=== PATIENT | male | born 1945 | race Caucasian/White ===

== ENCOUNTER → 2016-06-22 | Outpatient (REF) | payer OTHER ==
[~2016-06-22] MED LIST: /GLIM2TA OR; /TAMS4CA OR; /TAMS4CA PO; /WARF25TA OR; /WARF5TA OR; ALLO100T OR; AMAR1TAB OR; ATEN100T OR; CIPRO PO; DIGO0.126 OR; FLUOCINOLONE TOP; FURO20TA2 OR; GLUC1000 OR; LASI40TA OR; LISI10TA4 OR; METF1000 PO; METF750T OR; PERC7.5T12 PO; SENN8.6T7 PO; SLOWTAB OR; VERA240T11 OR; VITA100T OR; VITA50TA12 OR; WARF1TAB OR; WARFPOW3 PO; WARFPOW3 XX; ZOCO40TA OR; drisdol OR
[2016-06-22 16:17] LABS: ALBUMIN 3.5 GM/DL (3.2-5.2); ALBUMIN/GLOBULIN RATIO 0.9 (1.00-1.93); BILIRUBIN,TOTAL 0.3 MG/DL (0.2-1.0); CALCIUM LEVEL 8.8 MG/DL (8.8-10.2); CREATININE FOR GFR 2.3 MG/DL (0.70-1.30); GLOMERULAR FILTRATION RATE 29.8 (>42); POTASSIUM SERUM 4.1 MEQ/L (3.5-5.1); TOTAL PROTEIN 7.4 GM/DL (6.4-8.2)
== END ==
LOC: M SFHCPLAZ 13:09
PROVIDERS: ATTEND Nurse Practitioner Family
DX: E11.65 Type 2 diabetes mellitus with hyperglycemia (principal)

== ENCOUNTER → 2016-07-04 | Outpatient (REF) | payer OTHER ==
[2016-07-04 15:49] LABS: ALBUMIN 3.1 GM/DL (3.2-5.2); ALBUMIN/GLOBULIN RATIO 0.89 (1.00-1.93); BILIRUBIN,TOTAL 0.3 MG/DL (0.2-1.0); CALCIUM LEVEL 7.8 MG/DL (8.8-10.2); CREATININE FOR GFR 1.47 MG/DL (0.70-1.30); POTASSIUM SERUM 4.5 MEQ/L (3.5-5.1); TOTAL PROTEIN 6.6 GM/DL (6.4-8.2)
== END ==
LOC: M SFHCPLAZ 13:28
PROVIDERS: ATTEND Nurse Practitioner Family
DX: N17.9 Acute kidney failure, unspecified (principal)

== ENCOUNTER → 2016-07-16 | Outpatient (REF) | payer OTHER ==
[2016-07-16 16:32] LABS: INR 2.03
== END ==
LOC: M SFHCPLAZ 16:10
PROVIDERS: ATTEND Nurse Practitioner Family
DX: I48.91 Unspecified atrial fibrillation (principal); Z51.81 Encounter for therapeutic drug level monitoring; Z79.01 Long term (current) use of anticoagulants

== ENCOUNTER → 2016-07-16 | Outpatient (REF) | payer OTHER ==
[2016-07-16 16:35] LABS: CALCIUM LEVEL 8.1 MG/DL (8.8-10.2); CREATININE FOR GFR 1.55 MG/DL (0.70-1.30); MAGNESIUM LEVEL 2.1 MG/DL (1.8-2.4); PHOSPHORUS LEVEL 3.1 MG/DL (2.5-4.9); POTASSIUM SERUM 4.3 MEQ/L (3.5-5.1)
== END ==
LOC: M LABDRAWP 15:43
PROVIDERS: ATTEND Physician Assistant
DX: I50.32 Chronic diastolic (congestive) heart failure (principal); I48.3 Typical atrial flutter; Z51.81 Encounter for therapeutic drug level monitoring; Z79.01 Long term (current) use of anticoagulants

== ENCOUNTER → 2016-09-20 | Outpatient (REF) | payer OTHER ==
[2016-09-20 16:52] LABS: ALBUMIN 3.2 GM/DL (3.2-5.2); ALBUMIN/GLOBULIN RATIO 0.86 (1.00-1.93); BILIRUBIN,TOTAL 0.2 MG/DL (0.2-1.0); CALCIUM LEVEL 8.4 MG/DL (8.8-10.2); CREATININE FOR GFR 1.6 MG/DL (0.70-1.30); GLOMERULAR FILTRATION RATE 45.3 (>42); POTASSIUM SERUM 4.9 MEQ/L (3.5-5.1); TOTAL PROTEIN 6.9 GM/DL (6.4-8.2)
== END ==
LOC: M LABDRAW1 12:57
PROVIDERS: ATTEND Nurse Practitioner Family
DX: E11.21 Type 2 diabetes mellitus with diabetic nephropathy (principal); N17.9 Acute kidney failure, unspecified

== ENCOUNTER → 2016-10-25 | Outpatient (REF) | payer OTHER ==
[2016-10-25 16:08] LABS: ALBUMIN 3.2 GM/DL (3.2-5.2); CALCIUM LEVEL 8.3 MG/DL (8.8-10.2); CREATININE FOR GFR 1.41 MG/DL (0.70-1.30); GLOMERULAR FILTRATION RATE 52.5 (>42); MAGNESIUM LEVEL 2.1 MG/DL (1.8-2.4); PHOSPHORUS LEVEL 2.7 MG/DL (2.5-4.9); POTASSIUM SERUM 4.3 MEQ/L (3.5-5.1)
== END ==
LOC: M LABDRAWP 15:29
PROVIDERS: ATTEND Physician Assistant
DX: I50.32 Chronic diastolic (congestive) heart failure (principal); I48.3 Typical atrial flutter

== ENCOUNTER → 2016-10-25 | Outpatient (REF) | payer OTHER ==
[2016-10-25 16:05] LABS: INR 2.33
== END ==
LOC: M LABDRAWP 15:31
PROVIDERS: ATTEND Nurse Practitioner Family
DX: Z51.81 Encounter for therapeutic drug level monitoring (principal); Z79.01 Long term (current) use of anticoagulants; I48.3 Typical atrial flutter; I50.32 Chronic diastolic (congestive) heart failure

== ENCOUNTER → 2016-12-21 | Outpatient (REF) | payer OTHER ==
[2016-12-21 16:50] LABS: ALBUMIN 3.1 GM/DL (3.2-5.2); ALBUMIN/GLOBULIN RATIO 0.86 (1.00-1.93); BILIRUBIN,TOTAL 0.3 MG/DL (0.2-1.0); CALCIUM LEVEL 8.2 MG/DL (8.8-10.2); CREATININE FOR GFR 1.48 MG/DL (0.70-1.30); GLOMERULAR FILTRATION RATE 49.6 (>42); POTASSIUM SERUM 4.4 MEQ/L (3.5-5.1); TOTAL PROTEIN 6.7 GM/DL (6.4-8.2)
== END ==
LOC: M SFHCPLAZ 14:23
PROVIDERS: ATTEND Nurse Practitioner Family
DX: E11.65 Type 2 diabetes mellitus with hyperglycemia (principal)

== ENCOUNTER → 2017-01-28 | Outpatient (CLI) | payer OTHER ==
[2017-01-28 18:31] LABS: ALBUMIN 3.2 GM/DL (3.2-5.2); CALCIUM LEVEL 7.9 MG/DL (8.8-10.2); CREATININE FOR GFR 1.54 MG/DL (0.70-1.30); GLOMERULAR FILTRATION RATE 47.4 (>42); MAGNESIUM LEVEL 2.3 MG/DL (1.8-2.4); PHOSPHORUS LEVEL 3.3 MG/DL (2.5-4.9); POTASSIUM SERUM 4.3 MEQ/L (3.5-5.1)
== END ==
LOC: M WUC 13:38
PROVIDERS: ATTEND Physician Assistant
DX: I50.32 Chronic diastolic (congestive) heart failure (principal)

== ENCOUNTER → 2017-02-08 | Outpatient (REF) | payer OTHER ==
[2017-02-08 13:36] LABS: INR 2.7
[2017-02-08 13:49] LABS: ALBUMIN 3.3 GM/DL (3.2-5.2); ALBUMIN/GLOBULIN RATIO 0.89 (1.00-1.93); BILIRUBIN,TOTAL 0.5 MG/DL (0.2-1.0); CALCIUM LEVEL 8.1 MG/DL (8.8-10.2); CREATININE FOR GFR 1.39 MG/DL (0.70-1.30); GLOMERULAR FILTRATION RATE 53.2 (>42); POTASSIUM SERUM 4.1 MEQ/L (3.5-5.1)
[2017-02-08 14:00] LABS: DIGOXIN LEVEL 0.4 NG/ML (0.5-2.0)
== END ==
LOC: M SFHCPLAZ 09:34
PROVIDERS: ATTEND Nurse Practitioner Family
DX: I48.0 Paroxysmal atrial fibrillation (principal); E78.2 Mixed hyperlipidemia; Z51.81 Encounter for therapeutic drug level monitoring; Z79.01 Long term (current) use of anticoagulants; R73.01 Impaired fasting glucose

== ENCOUNTER → 2017-04-25 | Outpatient (REF) | payer OTHER ==
[2017-04-25 16:48] LABS: ALBUMIN 3.3 GM/DL (3.2-5.2); ALBUMIN/GLOBULIN RATIO 0.87 (1.00-1.93); BILIRUBIN,TOTAL 0.4 MG/DL (0.2-1.0); CALCIUM LEVEL 7.9 MG/DL (8.8-10.2); CREATININE FOR GFR 1.65 MG/DL (0.70-1.30); GLOMERULAR FILTRATION RATE 43.6 (>42); POTASSIUM SERUM 4.4 MEQ/L (3.5-5.1); TOTAL PROTEIN 7.1 GM/DL (6.4-8.2)
== END ==
LOC: M SFHCPLAZ 12:52
PROVIDERS: ATTEND Nurse Practitioner Family
DX: E11.21 Type 2 diabetes mellitus with diabetic nephropathy (principal)

== ENCOUNTER → 2017-05-17 | Outpatient (CLI) | payer OTHER ==
[2017-05-17 18:33] LABS: ALBUMIN 3.3 GM/DL (3.2-5.2); ANION GAP 7 MEQ/L (8-16); BLOOD UREA NITROGEN 44 MG/DL (7-18); CALCIUM LEVEL 8.4 MG/DL (8.8-10.2); CARBON DIOXIDE LEVEL 32 MEQ/L (21-32); CHLORIDE LEVEL 102 MEQ/L (98-107); CREATININE FOR GFR 1.49 MG/DL (0.70-1.30); GLOMERULAR FILTRATION RATE 49.1 (>42); GLUCOSE, FASTING 286 MG/DL (83-110); MAGNESIUM LEVEL 2.3 MG/DL (1.8-2.4); PHOSPHORUS LEVEL 3.9 MG/DL (2.5-4.9); POTASSIUM SERUM 4.6 MEQ/L (3.5-5.1); SODIUM LEVEL 141 MEQ/L (136-145)
== END ==
LOC: M WUC 14:41
DX: I48.1 Persistent atrial fibrillation (principal); I50.32 Chronic diastolic (congestive) heart failure
CPT/HCPCS: 83735

== ENCOUNTER → 2017-05-30 | Outpatient (REF) | payer OTHER ==
[2017-05-30 16:22] LABS: ANION GAP 6 MEQ/L (8-16); BLOOD UREA NITROGEN 43 MG/DL (7-18); CALCIUM LEVEL 8.2 MG/DL (8.8-10.2); CARBON DIOXIDE LEVEL 31 MEQ/L (21-32); CHLORIDE LEVEL 100 MEQ/L (98-107); CREATININE FOR GFR 1.55 MG/DL (0.70-1.30); GLOMERULAR FILTRATION RATE 46.9 (>42); GLUCOSE, FASTING 361 MG/DL (83-110); POTASSIUM SERUM 4.7 MEQ/L (3.5-5.1); SODIUM LEVEL 137 MEQ/L (136-145)
== END ==
LOC: M SFHCPLAZ 14:02
DX: I10 Essential (primary) hypertension (principal); Z79.01 Long term (current) use of anticoagulants; Z51.81 Encounter for therapeutic drug level monitoring
CPT/HCPCS: 80048

== ENCOUNTER → 2017-08-19 | Outpatient (REF) | payer OTHER ==
[2017-08-19 18:50] LABS: ALKALINE PHOSPHATASE 74 U/L (45-117); ALT/SGPT 37 U/L (12-78); ANION GAP 6 MEQ/L (8-16); AST/SGOT 22 U/L (7-37); BILIRUBIN,TOTAL 0.3 MG/DL (0.2-1.0); BLOOD UREA NITROGEN 41 MG/DL (7-18); CALCIUM LEVEL 8.2 MG/DL (8.8-10.2); CARBON DIOXIDE LEVEL 29 MEQ/L (21-32); CHLORIDE LEVEL 105 MEQ/L (98-107); CHOLESTEROL LEVEL 153 MG/DL (<200); CREATININE FOR GFR 1.52 MG/DL (0.70-1.30); GLUCOSE, FASTING 147 MG/DL (70-100); HDL CHOLESTEROL 36 MG/DL (>40); POTASSIUM SERUM 4.2 MEQ/L (3.5-5.1); SODIUM LEVEL 140 MEQ/L (136-145); TRIGLYCERIDES LEVEL 247 MG/DL (<150)
[2017-08-19 18:51] LABS: ALBUMIN 3.4 GM/DL (3.2-5.2); ALBUMIN/GLOBULIN RATIO 0.89 (1.00-1.93); LDL CHOLESTEROL 67.6 MG/DL (<100); NON-HDL-C 117 MG/DL; TOTAL PROTEIN 7.2 GM/DL (6.4-8.2)
[2017-08-19 22:51] LABS: ESTIMATED AVERAGE GLUCOSE 206 MG/DL (60-110); HEMOGLOBIN A1c 8.8 %
== END ==
LOC: M SFHCPLAZ 15:33
DX: E11.65 Type 2 diabetes mellitus with hyperglycemia (principal); E78.2 Mixed hyperlipidemia; I10 Essential (primary) hypertension
CPT/HCPCS: 80053

== ENCOUNTER → 2017-08-28 | Outpatient (CLI) | payer OTHER ==
[2017-08-28 17:04] LABS: ALBUMIN 3.2 GM/DL (3.2-5.2); ANION GAP 6 MEQ/L (8-16); BLOOD UREA NITROGEN 44 MG/DL (7-18); CALCIUM LEVEL 8.2 MG/DL (8.8-10.2); CARBON DIOXIDE LEVEL 30 MEQ/L (21-32); CHLORIDE LEVEL 105 MEQ/L (98-107); GLOMERULAR FILTRATION RATE 45.2 (>42); GLUCOSE, FASTING 203 MG/DL (70-100); MAGNESIUM LEVEL 2.4 MG/DL (1.8-2.4); PHOSPHORUS LEVEL 2.9 MG/DL (2.5-4.9); POTASSIUM SERUM 4.3 MEQ/L (3.5-5.1); SODIUM LEVEL 141 MEQ/L (136-145)
== END ==
LOC: M WUC 14:38
DX: I50.32 Chronic diastolic (congestive) heart failure (principal); I48.3 Typical atrial flutter
CPT/HCPCS: 83735

== ENCOUNTER 2017-10-16 16:21 | Emergency (ER) | payer OTHER | END 2017-10-16 19:23 | disposition home or self-care (01) | LOC: M ED 16:21 | DX: M17.11 Unilateral primary osteoarthritis, right knee (principal); M25.561 Pain in right knee; R60.0 Localized edema; I50.9 Heart failure, unspecified; E11.9 Type 2 diabetes mellitus without complications; I10 Essential (primary) hypertension; Z79.4 Long term (current) use of insulin; Z79.01 Long term (current) use of anticoagulants; Z79.899 Other long term (current) drug therapy | CPT/HCPCS: 73564 ==

== ENCOUNTER 2017-10-17 10:15 | Emergency (ER) | payer OTHER | END 2017-10-17 11:31 | disposition home or self-care (01) | LOC: M ED 10:15 | DX: S60.221A Contusion of right hand, initial encounter (principal); S63.501A Unspecified sprain of right wrist, initial encounter; W19.XXXA Unspecified fall, initial encounter; Y92.098 Other place in other non-institutional residence as the place of occurrence of the external cause; I11.0 Hypertensive heart disease with heart failure; I50.9 Heart failure, unspecified; E78.00 Pure hypercholesterolemia, unspecified; G47.30 Sleep apnea, unspecified; N28.89 Other specified disorders of kidney and ureter; Z85.46 Personal history of malignant neoplasm of prostate; M19.90 Unspecified osteoarthritis, unspecified site; E11.9 Type 2 diabetes mellitus without complications; Z79.899 Other long term (current) drug therapy; Z79.4 Long term (current) use of insulin; Z79.01 Long term (current) use of anticoagulants | CPT/HCPCS: 73110 ==

== ENCOUNTER → 2017-11-19 | Outpatient (REF) | payer OTHER ==
[2017-11-19 16:18] LABS: ALBUMIN 3.4 GM/DL (3.2-5.2); ALBUMIN/GLOBULIN RATIO 0.92 (1.00-1.93); ALKALINE PHOSPHATASE 84 U/L (45-117); ALT/SGPT 29 U/L (12-78); ANION GAP 5 MEQ/L (8-16); AST/SGOT 22 U/L (7-37); BILIRUBIN,TOTAL 0.4 MG/DL (0.2-1.0); BLOOD UREA NITROGEN 43 MG/DL (7-18); CALCIUM LEVEL 8.2 MG/DL (8.8-10.2); CARBON DIOXIDE LEVEL 32 MEQ/L (21-32); CHLORIDE LEVEL 101 MEQ/L (98-107); CREATININE FOR GFR 1.56 MG/DL (0.70-1.30); GLOMERULAR FILTRATION RATE 46.5 (>42); GLUCOSE, FASTING 232 MG/DL (70-100); POTASSIUM SERUM 4.4 MEQ/L (3.5-5.1); SODIUM LEVEL 138 MEQ/L (136-145); TOTAL PROTEIN 7.1 GM/DL (6.4-8.2)
[2017-11-19 16:23] LABS: ESTIMATED AVERAGE GLUCOSE 209 MG/DL (60-110); HEMOGLOBIN A1c 8.9 %
== END ==
LOC: M LABDRAW1 15:56
DX: E11.21 Type 2 diabetes mellitus with diabetic nephropathy (principal)
CPT/HCPCS: 80053

== ENCOUNTER → 2017-11-26 | Outpatient (REF) | payer OTHER ==
[2017-11-26 16:06] LABS: ANION GAP 6 MEQ/L (8-16); BLOOD UREA NITROGEN 36 MG/DL (7-18); CARBON DIOXIDE LEVEL 30 MEQ/L (21-32); CHLORIDE LEVEL 104 MEQ/L (98-107); CREATININE FOR GFR 1.49 MG/DL (0.70-1.30); GLOMERULAR FILTRATION RATE 49.1 (>42); GLUCOSE, FASTING 177 MG/DL (70-100); MAGNESIUM LEVEL 2.2 MG/DL (1.8-2.4); PHOSPHORUS LEVEL 2.9 MG/DL (2.5-4.9); POTASSIUM SERUM 4.5 MEQ/L (3.5-5.1); SODIUM LEVEL 140 MEQ/L (136-145)
== END ==
LOC: M LABDRAW1 15:22
DX: I48.3 Typical atrial flutter (principal); I50.32 Chronic diastolic (congestive) heart failure
CPT/HCPCS: 83735

== ENCOUNTER → 2017-12-27 | Outpatient (REF) | payer OTHER ==
[2017-12-27 16:12] LABS: ANION GAP 7 MEQ/L (8-16); BLOOD UREA NITROGEN 47 MG/DL (7-18); CALCIUM LEVEL 8.2 MG/DL (8.8-10.2); CARBON DIOXIDE LEVEL 30 MEQ/L (21-32); CHLORIDE LEVEL 104 MEQ/L (98-107); CREATININE FOR GFR 1.56 MG/DL (0.70-1.30); GLOMERULAR FILTRATION RATE 46.5 (>42); GLUCOSE, FASTING 178 MG/DL (70-100); POTASSIUM SERUM 4.7 MEQ/L (3.5-5.1); SODIUM LEVEL 141 MEQ/L (136-145)
== END ==
LOC: M SFHCPLAZ 14:24
DX: N18.3 Chronic kidney disease, stage 3 (moderate) (principal)
CPT/HCPCS: 80048

== ENCOUNTER 2018-01-21 05:39 | Day surgery (SDC) | payer OTHER ==
[~2018-01-21 05:39] MED LIST changes: -/GLIM2TA OR; -/TAMS4CA OR; -/TAMS4CA PO; -/WARF25TA OR; -/WARF5TA OR; -ALLO100T OR; -AMAR1TAB OR; -ATEN100T OR; -CIPRO PO; -DIGO0.126 OR; -FLUOCINOLONE TOP; -FURO20TA2 OR; -GLUC1000 OR; -LASI40TA OR; -LISI10TA4 OR; +LR 1,000 ML IV; -METF1000 PO; -METF750T OR; -PERC7.5T12 PO; -SENN8.6T7 PO; -SLOWTAB OR; -VERA240T11 OR; -VITA100T OR; -VITA50TA12 OR; -WARF1TAB OR; -WARFPOW3 PO; -WARFPOW3 XX; -ZOCO40TA OR; +ceFAZolin SOD 1 GM in D5W MINI-BAG PLUS 50 ML IV; -drisdol OR
[2018-01-21] MEDS ORDERED: ceFAZolin SOD 1 GM in D5W MINI-BAG PLUS 50 ML IV (06:00)
[2018-01-21] MEDS: LR 1,000 ML IV (06:20)
[2018-01-21 06:33] LABS: BEDSIDE GLUCOSE 129 MG/DL (83-110)
[2018-01-21 06:40] LABS: INR 3.07; PROTHROMBIN TIME 32.4 SECONDS (12.1-14.4)
[2018-01-21] MEDS ORDERED: fentaNYL 100 MCG/2 ML INJECTION (J3010) As Ordered (07:25)
[2018-01-21] MEDS ORDERED: ETOMIDATE INJ 20MG/10ML VIAL As Ordered (07:25)
[2018-01-21] MEDS ORDERED: ROCURONIUM BROMIDE 50 MG/5 ML VIAL As Ordered (07:25)
[2018-01-21] MEDS ORDERED: LIDOCAINE 2% INJ 100 MG/5 ML SDV (FOR ANES.) As Ordered (07:25)
[2018-01-21] MEDS ORDERED: PROPOFOL 200 MG/20 ML VIAL As Ordered (07:25)
[2018-01-21] MEDS ORDERED: SUCCINYLCHOLINE 100 MG/5 ML SYRINGE (J0330) As Ordered ×2 (07:25)
[2018-01-21] MEDS ORDERED: ONDANSETRON 4MG/2ML VIAL (J2405) As Ordered (07:25)
[2018-01-21] MEDS ORDERED: dexameTHASONE 4 MG/ML 1ML VIAL (J1100) As Ordered (07:25)
[2018-01-21] MEDS ORDERED: MIDAZOLAM INJ 2 MG/2 ML VIAL (J2250) As Ordered (07:25)
[2018-01-21] MEDS ORDERED: GLYCOPYRROLATE INJ 0.2 MG/ML 2 ML VIAL As Ordered (08:08)
[2018-01-21] MEDS ORDERED: ePHEDrine SULFATE 25 MG/5 ML(5MG/ML) SYRINGE As Ordered (08:09)
[2018-01-21] MEDS: ROPIvacaine 0.5% 30 ML INJECTION (J2795 PER 1MG) As Ordered (08:18)
[2018-01-21] MEDS: TRIAMCINOLONE ACETONIDE SUSP 40 MG/ML VIAL (J3301) As Ordered (08:19)
[2018-01-21] MEDS ORDERED: ONDANSETRON 4MG/2ML VIAL (J2405) IV (08:45)
[2018-01-21] MEDS ORDERED: LR 1,000 ML IV ×2 (08:45)
[2018-01-21] MEDS ORDERED: METOCLOPRAMIDE INJ 10MG/2ML VIAL (J2765) IV (08:45)
[2018-01-21] MEDS ORDERED: NORCO, ANEXSIA 5/325MG TABLET (HYDROcodone/ACETAMINOPHEN) PO (08:45)
[2018-01-21] MEDS ORDERED: PERCOCET 5MG/325MG TAB PO (08:45)
[2018-01-21] MEDS ORDERED: fentaNYL 100 MCG/2 ML INJECTION (J3010) IV (08:45)
[2018-01-21 08:54] LABS: BEDSIDE GLUCOSE 139 MG/DL (83-110)
== END 2018-01-21 11:20 | disposition home or self-care (01) ==
LOC: M SDC 05:39
DX: M17.11 Unilateral primary osteoarthritis, right knee (principal); M23.221 Derangement of posterior horn of medial meniscus due to old tear or injury, right knee; M23.261 Derangement of other lateral meniscus due to old tear or injury, right knee; I13.0 Hypertensive heart and chronic kidney disease with heart failure and stage 1 through stage 4 chronic kidney disease, or unspecified chronic kidney disease; E11.21 Type 2 diabetes mellitus with diabetic nephropathy; E11.22 Type 2 diabetes mellitus with diabetic chronic kidney disease; I48.0 Paroxysmal atrial fibrillation; I35.0 Nonrheumatic aortic (valve) stenosis; I50.32 Chronic diastolic (congestive) heart failure; E78.2 Mixed hyperlipidemia; R06.83 Snoring; N18.3 Chronic kidney disease, stage 3 (moderate); E83.40 Disorders of magnesium metabolism, unspecified; E55.9 Vitamin D deficiency, unspecified; D51.9 Vitamin B12 deficiency anemia, unspecified; G47.33 Obstructive sleep apnea (adult) (pediatric); N40.0 Benign prostatic hyperplasia without lower urinary tract symptoms; C61 Malignant neoplasm of prostate; M10.9 Gout, unspecified; E66.01 Morbid (severe) obesity due to excess calories; Z68.43 Body mass index [BMI] 50.0-59.9, adult; Z79.899 Other long term (current) drug therapy; Z79.01 Long term (current) use of anticoagulants; Z79.4 Long term (current) use of insulin; Z86.69 Personal history of other diseases of the nervous system and sense organs
CPT/HCPCS: 29880

== ENCOUNTER → 2018-02-21 | Outpatient (REF) | payer OTHER ==
[2018-02-21 17:52] LABS: ESTIMATED AVERAGE GLUCOSE 209 MG/DL (60-110); HEMOGLOBIN A1c 8.9 %
[2018-02-21 17:56] LABS: ALBUMIN 3.4 GM/DL (3.2-5.2); ALBUMIN/GLOBULIN RATIO 0.94 (1.00-1.93); ALKALINE PHOSPHATASE 71 U/L (45-117); ALT/SGPT 37 U/L (12-78); ANION GAP 7 MEQ/L (8-16); AST/SGOT 26 U/L (7-37); BILIRUBIN,TOTAL 0.3 MG/DL (0.2-1.0); BLOOD UREA NITROGEN 44 MG/DL (7-18); CALCIUM LEVEL 8.8 MG/DL (8.8-10.2); CARBON DIOXIDE LEVEL 31 MEQ/L (21-32); CHLORIDE LEVEL 104 MEQ/L (98-107); CREATININE FOR GFR 1.65 MG/DL (0.70-1.30); GLOMERULAR FILTRATION RATE 43.5 (>42); GLUCOSE, FASTING 155 MG/DL (70-100); POTASSIUM SERUM 4.5 MEQ/L (3.5-5.1); SODIUM LEVEL 142 MEQ/L (136-145)
== END ==
LOC: M SFHCPLAZ 15:55
DX: E11.21 Type 2 diabetes mellitus with diabetic nephropathy (principal)
CPT/HCPCS: 80053

== ENCOUNTER → 2018-03-03 | Outpatient (REF) | payer OTHER ==
[2018-03-03 19:11] LABS: ANION GAP 8 MEQ/L (8-16); BLOOD UREA NITROGEN 54 MG/DL (7-18); CALCIUM LEVEL 8.5 MG/DL (8.8-10.2); CARBON DIOXIDE LEVEL 30 MEQ/L (21-32); CHLORIDE LEVEL 102 MEQ/L (98-107); CREATININE FOR GFR 1.83 MG/DL (0.70-1.30); GLOMERULAR FILTRATION RATE 38.6 (>42); GLUCOSE, FASTING 173 MG/DL (70-100); POTASSIUM SERUM 4.9 MEQ/L (3.5-5.1); SODIUM LEVEL 140 MEQ/L (136-145)
== END ==
LOC: M LABDRAW1 17:00
DX: I50.32 Chronic diastolic (congestive) heart failure (principal)
CPT/HCPCS: 80048

== ENCOUNTER → 2018-03-20 | Outpatient (CLI) | payer OTHER ==
[2018-03-20 17:25] LABS: ANION GAP 8 MEQ/L (8-16); BLOOD UREA NITROGEN 48 MG/DL (7-18); CALCIUM LEVEL 8.6 MG/DL (8.8-10.2); CARBON DIOXIDE LEVEL 31 MEQ/L (21-32); CHLORIDE LEVEL 100 MEQ/L (98-107); CREATININE FOR GFR 1.74 MG/DL (0.70-1.30); GLOMERULAR FILTRATION RATE 40.9 (>42); GLUCOSE, FASTING 259 MG/DL (70-100); POTASSIUM SERUM 4.5 MEQ/L (3.5-5.1); SODIUM LEVEL 139 MEQ/L (136-145)
== END ==
LOC: M WUC 13:20
DX: I50.32 Chronic diastolic (congestive) heart failure (principal)
CPT/HCPCS: 80048

== ENCOUNTER → 2018-05-07 | Outpatient (REF) | payer OTHER ==
[2018-05-07 17:31] LABS: ALBUMIN/GLOBULIN RATIO 0.86 (1.00-1.93); ALKALINE PHOSPHATASE 73 U/L (45-117); ALT/SGPT 34 U/L (12-78); ANION GAP 7 MEQ/L (8-16); AST/SGOT 21 U/L (7-37); BILIRUBIN,TOTAL 0.3 MG/DL (0.2-1.0); BLOOD UREA NITROGEN 57 MG/DL (7-18); CALCIUM LEVEL 8.1 MG/DL (8.8-10.2); CARBON DIOXIDE LEVEL 31 MEQ/L (21-32); CHLORIDE LEVEL 101 MEQ/L (98-107); CREATININE FOR GFR 2.14 MG/DL (0.70-1.30); GLOMERULAR FILTRATION RATE 32.2 (>42); GLUCOSE, FASTING 267 MG/DL (70-100); POTASSIUM SERUM 5.1 MEQ/L (3.5-5.1); SODIUM LEVEL 139 MEQ/L (136-145); TOTAL PROTEIN 6.5 GM/DL (6.4-8.2)
[2018-05-07 17:42] LABS: INR 1.57
[2018-05-07 18:49] LABS: ESTIMATED AVERAGE GLUCOSE 249 MG/DL (60-110); HEMOGLOBIN A1c 10.3 %
== END ==
LOC: M SFHCPLAZ 15:00
DX: Z51.81 Encounter for therapeutic drug level monitoring (principal); Z79.01 Long term (current) use of anticoagulants; E11.21 Type 2 diabetes mellitus with diabetic nephropathy; I48.91 Unspecified atrial fibrillation
CPT/HCPCS: 80053

== ENCOUNTER → 2018-05-27 | Outpatient (REF) | payer MEDICARE ==
[~2018-05-27] MED LIST changes: +/GLIM2TA OR; +/TAMS4CA OR; +/TAMS4CA PO; +/WARF25TA OR; +/WARF5TA OR; +ALLO100T; +ALLO100T OR; +ALLO100T PO; +ALLOPURINOL; +AMAR1TAB OR; +ATEN100T OR; +ATOR1TAB21 PO; +BASA100I SC; +CIPRO PO; +DIGO0.12 PO; +DIGO0.126 OR; +DRIS50003 PO; +FIBE625T22 PO; +FISH100049 PO; +FLON1SPR; +FLUO25CR EXT; +FLUOCINOLONE TOP; +FLUTISP; +FURO20TA2 OR; +FURO40TA2 PO; +FURO80TA2 PO; +GLUC1000 OR; +LASI40TA OR; +LISI10TA4 OR; +LOSA50TA88 PO; -LR 1,000 ML IV; +MECL-68 PO; +METF1000 PO; +METF750T OR; +NOVOINJ3; +NOVOINJ3 SC; +PERC7.5T12 PO; +PREG100CA; +PREG100CA PO; +SENN8.6T7 PO; +SLOWTAB OR; +SLOWTAB2 PO; +VERA1TAB10 PO; +VERA240T11 OR; +VITA100L PO; +VITA100T OR; +VITA50TA12 OR; +WARF-23 PO; +WARF1TAB OR; +WARFPOW3 PO; +WARFPOW3 XX; +ZOCO40TA OR; +ZYLO300T6 PO; -ceFAZolin SOD 1 GM in D5W MINI-BAG PLUS 50 ML IV; +drisdol OR
[2018-05-27 18:13] LABS: ALBUMIN 3.3 GM/DL (3.2-5.2); CREATININE FOR GFR 2.02 MG/DL (0.70-1.30); GLOMERULAR FILTRATION RATE 34.5 (>42); PHOSPHORUS LEVEL 4.2 MG/DL (2.5-4.9)
== END ==
LOC: M SFHCPLAZ 14:47
PROVIDERS: ATTEND Nurse Practitioner Family
DX: E11.21 Type 2 diabetes mellitus with diabetic nephropathy (principal); N18.3 Chronic kidney disease, stage 3 (moderate); E55.9 Vitamin D deficiency, unspecified
CPT/HCPCS: 36415; 80069; 82306; 92250; G0463

== ENCOUNTER → 2018-06-04 | Outpatient (CLI) | payer MEDICARE ==
--- NOTE | 2018-06-04 17:05 | REP ---
MRI RIGHT KNEE: TECHNIQUE: Axial proton density fat saturation, sagittal proton density T2 STIR, water excitation, coronal proton density, proton density fat saturation. There is a complex bucket handle tear of the medial meniscus predominantly involving the posterior horn. There is fraying of the posterior horn of the lateral meniscus. The cruciate and collateral ligaments are intact. Extensor mechanism is intact. There is moderate diffuse chondromalacia of the patella with subchondral cystic change in the lateral patellar facet. There is severe chondromalacia of the medial femoral condyle and tibial plateau. Extensive subchondral cystic change is seen in the medial tibial plateau with subchondral marrow edema as well. There is moderate diffuse chondromalacia of the lateral femoral condyle and tibial plateau. There is a mild to moderate joint effusion. Medial and lateral patellar retinacula are intact. I do not see a popliteal cyst. IMPRESSION: Complex bucket handle type tear of the medial meniscus predominantly involving the posterior horn. There appears to be fraying of the posterior horn of the lateral meniscus. The cruciate and collateral ligaments are intact. Diffuse chondromalacia as discussed above most significantly in the medial joint compartment with associated subchondral marrow edema and cystic change in the medial tibial plateau. Mild to moderate joint effusion. Electronically Signed by Jean Claude Fajardo MD 06/04/2018 05:22 P
== END ==
LOC: M RAD 13:45
PROVIDERS: ATTEND Physician Assistant Medical
DX: M22.41 Chondromalacia patellae, right knee (principal); R60.0 Localized edema; M25.461 Effusion, right knee; S83.211A Bucket-handle tear of medial meniscus, current injury, right knee, initial encounter; M25.561 Pain in right knee; X58.XXXA Exposure to other specified factors, initial encounter; Y92.89 Other specified places as the place of occurrence of the external cause

== ENCOUNTER → 2018-10-07 | Outpatient (CLI) | payer MEDICARE ==
[~2018-10-07] MED LIST changes: -/GLIM2TA OR; -/TAMS4CA OR; -/TAMS4CA PO; -/WARF25TA OR; -/WARF5TA OR; +AMAR1TAB5 OR; +COUM1TAB17 OR; +COUM1TAB18 OR; +FLOM0.4C39 OR; +FLOM0.4C39 PO; +FLUO0.024 EXT; -FLUO25CR EXT; +VERA120T4 PO; -VERA1TAB10 PO
[2018-10-07 16:32] LABS: CALCIUM LEVEL 7.9 MG/DL (8.8-10.2); CREATININE FOR GFR 1.54 MG/DL (0.70-1.30); GLOMERULAR FILTRATION RATE 47.1 (>42); MAGNESIUM LEVEL 2.4 MG/DL (1.8-2.4); POTASSIUM SERUM 4.5 MEQ/L (3.5-5.1)
== END ==
LOC: M WUC 13:41
PROVIDERS: ATTEND Nurse Practitioner Family
DX: I50.32 Chronic diastolic (congestive) heart failure (principal); I48.3 Typical atrial flutter

== ENCOUNTER → 2019-01-14 | Outpatient (CLI) | payer MEDICARE ==
[~2019-01-14] MED LIST changes: +B-12100T2 PO; -DIGO0.12 PO; +DIGO0.123 PO; +E-Z-GAS II EFFERVESCENT PACKET (SODIUM BICARB./CITRIC ACID/SIMETHICONE) As Ordered ONE; +E-Z-HD 98% w/w 340GM SUSP BTL As Ordered ONE; +E-Z-PAQUE 96% w/w SUSP 176GM BTL As Ordered ONE; +FIBE625T PO; +FISH1000 PO; -MECL-68 PO; +MECL1TAB31 PO; +NORC1TAB7 PO; +VERA120C PO
--- NOTE | 2019-01-28 14:06 | REP ---
Esophagram The procedure was performed under the direct supervision of Dr. Fajardo. The images were reviewed with Dr. Fajardo. A single view PA chest x-ray is submitted as a auto cleaner film. There is no change compared to a previous chest x-ray performed on 08/23/2017. Liquid barium and gas producing granules were given in the erect position as well as liquid barium in the prone oblique positions in order to perform a double contrast esophagram examination. During the oral and pharyngeal stages of deglutition the patient did have an episode of aspiration. There are esophageal transport there are tertiary waves demonstrated. There is no esophagitis stricture mucosal ring or hiatal hernia. Gastroesophageal reflux is not demonstrated on this examination. Impression: 1. The patient did have one episode of aspiration. 2. Tertiary waves 0.8 minutes of fluoro time was utilized for this procedure. HELADIOD
--- NOTE | 2019-02-12 15:02 | REP ---
Esophagram The procedure was performed under the direct supervision of Dr. Fajardo. The images were reviewed with Dr. Fajardo. A single view PA chest x-ray is submitted as a psychologist educational film. There is no change compared to a previous chest x-ray performed on 08/23/2017. Liquid barium and gas producing granules were given in the erect position as well as liquid barium in the prone oblique positions in order to perform a double contrast esophagram examination. During the oral and pharyngeal stages of deglutition the patient did have an episode of aspiration. There are esophageal transport there are tertiary waves demonstrated. There is no esophagitis stricture mucosal ring or hiatal hernia. Gastroesophageal reflux is not demonstrated on this examination. Impression: 1. The patient did have one episode of aspiration. 2. Tertiary waves 0.8 minutes of fluoro time was utilized for this procedure. Electronically Signed by OSVALDO Cardona 01/14/2019 04:05 P
== END ==
LOC: M RAD 07:54
PROVIDERS: ATTEND Nurse Practitioner Family
DX: R13.10 Dysphagia, unspecified (principal); I48.0 Paroxysmal atrial fibrillation; Z51.81 Encounter for therapeutic drug level monitoring; Z79.01 Long term (current) use of anticoagulants; Z85.46 Personal history of malignant neoplasm of prostate

== ENCOUNTER → 2019-01-14 | Outpatient (REF) | payer MEDICARE ==
[~2019-01-14] MED LIST changes: -B-12100T2 PO; +DIGO0.12 PO; -DIGO0.123 PO; -E-Z-GAS II EFFERVESCENT PACKET (SODIUM BICARB./CITRIC ACID/SIMETHICONE) As Ordered ONE; -E-Z-HD 98% w/w 340GM SUSP BTL As Ordered ONE; -E-Z-PAQUE 96% w/w SUSP 176GM BTL As Ordered ONE; -FIBE625T PO; -FISH1000 PO; +MECL-68 PO; -MECL1TAB31 PO; -NORC1TAB7 PO; -VERA120C PO
[2019-01-14 16:48] LABS: INR 1.89; PROTHROMBIN TIME 21.5 SECONDS (11.8-14.0)
== END ==
LOC: M SFHCPLAZ 13:28
PROVIDERS: ATTEND Nurse Practitioner Family
DX: I48.0 Paroxysmal atrial fibrillation (principal); Z51.81 Encounter for therapeutic drug level monitoring; Z79.01 Long term (current) use of anticoagulants; Z85.46 Personal history of malignant neoplasm of prostate

== ENCOUNTER 2019-02-19 08:58 | Day surgery (SDC) | payer MEDICARE ==
[~2019-02-19] VITALS: Ht 170.2 cm; Wt 149.6 kg
[~2019-02-19 08:58] MED LIST changes: +B-12100T2 PO; +FIBE625T PO; +FISH1000 PO; +NS 1,000 ML IV ONE
--- NOTE | 2019-02-19 10:38 | ROOR ---
Patient Name: Gagandeep Kaminski Procedure Date: 02/19/2019 10:26 AM Date of : 1945 Age: 74 Room: [facility] Gender: Male Note Status: Finalized Procedure: Upper GI endoscopy Indications: Dysphagia Providers: Rm Tuttle Jr, MD Referring MD: Georgie Raymundo NP Requesting Provider: Medicines: Propofol per Anesthesia Complications: No immediate complications. Procedure: Pre-Anesthesia Assessment: - Prior to the procedure, a History and Physical was performed, and patient medications and allergies were reviewed. The patient is competent. The risks and benefits of the procedure and the sedation options and risks were discussed with the patient. All questions were answered and informed consent was obtained. Patient identification and proposed procedure were verified by the physician and the nurse in the pre-procedure area and in the procedure room. Mental Status Examination: alert and oriented. Airway Examination: normal oropharyngeal airway and neck mobility. Respiratory Examination: clear to auscultation. CV Examination: normal. ASA Grade Assessment: III - A patient with severe systemic disease. After reviewing the risks and benefits, the patient was deemed in satisfactory condition to undergo the procedure. The anesthesia plan was to use moderate sedation / analgesia (conscious sedation). Immediately prior to administration of medications, the patient was re-assessed for adequacy to receive sedatives. The heart rate, respiratory rate, oxygen saturations, blood pressure, adequacy of pulmonary ventilation, and response to care were monitored throughout the procedure. The physical status of the patient was re-assessed after the procedure. The Endoscope was introduced through the mouth, and advanced to the second part of duodenum. The upper GI endoscopy was accomplished without difficulty. The patient tolerated the procedure well. Findings: The upper third of the esophagus, middle third of the esophagus and lower third of the esophagus were normal. The cardia, gastric fundus, gastric body, gastric antrum, prepyloric region of the stomach and pylorus were normal. The second portion of the duodenum was normal. Scattered moderate inflammation characterized by congestion (edema), erythema and friability was found in the first portion of the duodenum. Impression: - Normal upper third of esophagus, middle third of esophagus and lower third of esophagus. - Normal cardia, gastric fundus, gastric body, antrum, prepyloric region of the stomach and pylorus. - Normal second portion of the duodenum. - Duodenitis. - No specimens collected. Recommendation: - Discharge patient to home (ambulatory). - Return to my office as previously scheduled. Rm Tuttle MD Rm Tuttle Jr, MD 02/19/2019 10:37:49 AM Electronically signed by Rm Tuttle Jr, MD Number of Addenda: 0 Note Initiated On: 02/19/2019 10:26 AM Estimated Blood Loss: Estimated blood loss: none.
[2019-02-19] MEDS ORDERED: LIDOCAINE 2% INJ 100 MG/5 ML SDV (FOR ANES.) As Ordered ONE (10:40)
[2019-02-19] MEDS ORDERED: PROPOFOL 200 MG/20 ML VIAL As Ordered ONE (10:40)
--- NOTE | 2019-02-19 10:53 | ROOR ---
Patient Name: Gagandeep Kaminski Procedure Date: 02/19/2019 10:27 AM Date of : 1945 Age: 74 Room: [facility] Gender: Male Note Status: Finalized Procedure: Colonoscopy Indications: High risk colon cancer surveillance: Personal history of colonic polyps Providers: Rm Tuttle Jr, MD Referring MD: Georgie Raymundo NP Requesting Provider: Medicines: Propofol per Anesthesia Complications: No immediate complications. Procedure: Pre-Anesthesia Assessment: - Prior to the procedure, a History and Physical was performed, and patient medications and allergies were reviewed. The patient is competent. The risks and benefits of the procedure and the sedation options and risks were discussed with the patient. All questions were answered and informed consent was obtained. Patient identification and proposed procedure were verified by the physician and the nurse in the pre-procedure area and in the procedure room. Mental Status Examination: alert and oriented. Airway Examination: normal oropharyngeal airway and neck mobility. Respiratory Examination: clear to auscultation. CV Examination: normal. ASA Grade Assessment: III - A patient with severe systemic disease. After reviewing the risks and benefits, the patient was deemed in satisfactory condition to undergo the procedure. The anesthesia plan was to use moderate sedation / analgesia (conscious sedation). Immediately prior to administration of medications, the patient was re-assessed for adequacy to receive sedatives. The heart rate, respiratory rate, oxygen saturations, blood pressure, adequacy of pulmonary ventilation, and response to care were monitored throughout the procedure. The physical status of the patient was re-assessed after the procedure. The Colonoscope was introduced through the anus and advanced to the cecum, identified by appendiceal orifice and ileocecal valve. The colonoscopy was performed without difficulty. The patient tolerated the procedure well. The quality of the bowel preparation was adequate. Findings: The descending colon, transverse colon, ascending colon, cecum, appendiceal orifice and ileocecal valve appeared normal. Multiple small and large-mouthed diverticula were found in the sigmoid colon. Four polyps were found in the rectum, recto-sigmoid colon and sigmoid colon. The polyps were small in size. These polyps were removed with a hot snare. Resection and retrieval were complete. Impression: - The descending colon, transverse colon, ascending colon, cecum, appendiceal orifice and ileocecal valve are normal. - Diverticulosis in the sigmoid colon. - Four small polyps in the rectum, at the recto-sigmoid colon and in the sigmoid colon, removed with a hot snare. Resected and retrieved. Recommendation: - Discharge patient to home (ambulatory). - Repeat colonoscopy in 5 years for surveillance. Rm Tuttle MD Rm Tuttle Jr, MD 02/19/2019 10:52:34 AM Electronically signed by Rm Tuttle Jr, MD Number of Addenda: 0 Note Initiated On: 02/19/2019 10:27 AM Estimated Blood Loss: Estimated blood loss: none.
[2019-02-19 11:33] VITALS: BP 165/75
== END 2019-02-19 11:46 | disposition home or self-care (01) ==
LOC: M OPP 08:58
PROVIDERS: ATTEND Surgery
DX: Z86.010 Personal history of colon polyps (principal); Z80.0 Family history of malignant neoplasm of digestive organs; Z09 Encounter for follow-up examination after completed treatment for conditions other than malignant neoplasm; K62.1 Rectal polyp; K63.5 Polyp of colon; K57.30 Diverticulosis of large intestine without perforation or abscess without bleeding; K29.80 Duodenitis without bleeding; R13.10 Dysphagia, unspecified; I50.9 Heart failure, unspecified; E11.9 Type 2 diabetes mellitus without complications; N18.3 Chronic kidney disease, stage 3 (moderate); G47.30 Sleep apnea, unspecified; Z79.4 Long term (current) use of insulin; Z79.01 Long term (current) use of anticoagulants; Z79.899 Other long term (current) drug therapy; Z87.891 Personal history of nicotine dependence

== ENCOUNTER → 2019-04-13 | Outpatient (CLI) | payer MEDICARE ==
[~2019-04-13] MED LIST changes: -NS 1,000 ML IV ONE
[2019-04-13 18:06] LABS: CALCIUM LEVEL 8.6 MG/DL (8.8-10.2); CREATININE FOR GFR 1.87 MG/DL (0.70-1.30); GLOMERULAR FILTRATION RATE 37.6 (>42); MAGNESIUM LEVEL 2.5 MG/DL (1.8-2.4); POTASSIUM SERUM 4.4 MEQ/L (3.5-5.1)
== END ==
LOC: M WUC 14:11
PROVIDERS: ATTEND Physician Assistant
DX: I50.32 Chronic diastolic (congestive) heart failure (principal); I48.3 Typical atrial flutter

== ENCOUNTER 2019-05-15 08:48 | Emergency (ER) | payer MEDICARE ==
[~2019-05-15] VITALS: Ht 170.2 cm; Wt 153.5 kg
[~2019-05-15 08:48] MED LIST changes: -DIGO0.12 PO; +DIGO0.123 PO
[2019-05-15] MEDS ORDERED: VERA120C PO (09:13)
--- NOTE | 2019-05-15 09:55 | REP ---
Right rib series: Five diffuse including PA chest. History: Injury in a fall. Comparison chest x-ray: August 23, 2017. Findings: PA chest radiograph shows no evidence of pneumothorax or hydrothorax. Mediastinum is not widened. Heart is not enlarged. Pulmonary vasculature is not increased. Multiple views of the right ribcage show no evidence of rib fracture or bony destructive lesion. Impression: Negative right rib radiographs. No acute disease seen. Electronically Signed by Nazario Timmons MD 05/15/2019 09:47 A
[2019-05-15] MEDS ORDERED: NORC1TAB7 PO (10:09)
[2019-05-15 10:32] VITALS: BP 124/53
== END 2019-05-15 10:34 | disposition home or self-care (01) ==
LOC: M ED 08:48
DX: S20.219A Contusion of unspecified front wall of thorax, initial encounter (principal); W01.0XXA Fall on same level from slipping, tripping and stumbling without subsequent striking against object, initial encounter; Y92.019 Unspecified place in single-family (private) house as the place of occurrence of the external cause; I48.91 Unspecified atrial fibrillation; I10 Essential (primary) hypertension; G47.30 Sleep apnea, unspecified; Z88.2 Allergy status to sulfonamides; Z79.01 Long term (current) use of anticoagulants; Z79.899 Other long term (current) drug therapy

== ENCOUNTER → 2019-06-08 | Outpatient (CLI) | payer MEDICARE ==
[~2019-06-08] MED LIST changes: -MECL-68 PO; +MECL1TAB31 PO; +NORC1TAB7 PO; +VERA120C PO
[2019-06-08 13:06] LABS: BILIRUBIN,TOTAL 0.5 MG/DL (0.2-1.0); CALCIUM LEVEL 7.9 MG/DL (8.8-10.2); CHOLESTEROL RISK RATIO 3.275 (<5); CREATININE FOR GFR 1.82 MG/DL (0.70-1.30); GLOMERULAR FILTRATION RATE 38.8 (>42); POTASSIUM SERUM 4.2 MEQ/L (3.5-5.1); TOTAL PROTEIN 6.6 GM/DL (6.4-8.2)
[2019-06-08 13:10] LABS: TOTAL 25(OH) VITAMIN D 82.5 NG/ML (30.0-100.0)
== END ==
LOC: M WUC 10:07
PROVIDERS: ATTEND Family Medicine
DX: E78.2 Mixed hyperlipidemia (principal); I10 Essential (primary) hypertension; E11.21 Type 2 diabetes mellitus with diabetic nephropathy; E55.9 Vitamin D deficiency, unspecified; Z79.01 Long term (current) use of anticoagulants; Z79.4 Long term (current) use of insulin

== ENCOUNTER → 2019-07-13 | Outpatient (CLI) | payer MEDICARE ==
[2019-07-13 14:15] LABS: CALCIUM LEVEL 8.7 MG/DL (8.8-10.2); CREATININE FOR GFR 1.91 MG/DL (0.70-1.30); GLOMERULAR FILTRATION RATE 36.7 (>42); MAGNESIUM LEVEL 2.2 MG/DL (1.8-2.4); POTASSIUM SERUM 4.3 MEQ/L (3.5-5.1)
== END ==
LOC: M WUC 10:09
PROVIDERS: ATTEND Physician Assistant
DX: I50.32 Chronic diastolic (congestive) heart failure (principal); I48.3 Typical atrial flutter

== ENCOUNTER → 2019-10-08 | Outpatient (CLI) | payer MEDICARE ==
[~2019-10-08] MED LIST changes: -FLUO0.024 EXT; +FLUO15CR3 EXT
[2019-10-08 11:21] LABS: CREATININE FOR GFR 1.77 MG/DL (0.70-1.30); MAGNESIUM LEVEL 2.3 MG/DL (1.8-2.4); POTASSIUM SERUM 4.1 MEQ/L (3.5-5.1)
== END ==
LOC: M PLALAB 08:32
PROVIDERS: ATTEND Physician Assistant
DX: I50.32 Chronic diastolic (congestive) heart failure (principal); I48.3 Typical atrial flutter
CPT/HCPCS: 36415; 80048; 83735; 85610; G0463

== ENCOUNTER → 2020-01-29 | Outpatient (CLI) | payer MEDICARE ==
[2020-01-29 17:10] LABS: CALCIUM LEVEL 8.5 MG/DL (8.8-10.2); CREATININE FOR GFR 1.74 MG/DL (0.70-1.30); GLOMERULAR FILTRATION RATE 40.8 (>42); MAGNESIUM LEVEL 2.4 MG/DL (1.8-2.4); POTASSIUM SERUM 4.4 MEQ/L (3.5-5.1)
== END ==
LOC: M WUC 13:29
PROVIDERS: ATTEND Physician Assistant
DX: I50.32 Chronic diastolic (congestive) heart failure (principal); I48.3 Typical atrial flutter

== ENCOUNTER → 2020-02-29 | Outpatient (CLI) | payer MEDICARE ==
[2020-02-29 15:26] LABS: CALCIUM LEVEL 8.4 MG/DL (8.8-10.2); CREATININE FOR GFR 1.99 MG/DL (0.70-1.30); GLOMERULAR FILTRATION RATE 34.9 (>42); MAGNESIUM LEVEL 2.4 MG/DL (1.8-2.4); POTASSIUM SERUM 4.4 MEQ/L (3.5-5.1)
== END ==
LOC: M WUC 13:46
PROVIDERS: ATTEND Physician Assistant
DX: I50.32 Chronic diastolic (congestive) heart failure (principal); I48.3 Typical atrial flutter; Z79.01 Long term (current) use of anticoagulants

== ENCOUNTER → 2020-04-28 | Outpatient (CLI) | payer MEDICARE ==
[~2020-04-28] MED LIST changes: +MUCI600T31 PO; +PREV1CAP PO
[2020-04-28 16:27] LABS: CREATININE FOR GFR 1.89 MG/DL (0.70-1.30); MAGNESIUM LEVEL 2.5 MG/DL (1.8-2.4); POTASSIUM SERUM 4.8 MEQ/L (3.5-5.1)
== END ==
LOC: M PLALAB 14:38
PROVIDERS: ATTEND Physician Assistant
DX: I50.32 Chronic diastolic (congestive) heart failure (principal); I48.3 Typical atrial flutter; Z51.81 Encounter for therapeutic drug level monitoring; Z85.46 Personal history of malignant neoplasm of prostate; Z79.01 Long term (current) use of anticoagulants
CPT/HCPCS: 36415; 80048; 83735; 84153; 85610; G0463

== ENCOUNTER → 2020-04-28 | Outpatient (REF) | payer MEDICARE | LOC: M SFHCPLAZ 14:38 | PROVIDERS: ATTEND Family Medicine | DX: Z51.81 Encounter for therapeutic drug level monitoring (principal); Z85.46 Personal history of malignant neoplasm of prostate; Z79.01 Long term (current) use of anticoagulants ==

== ENCOUNTER 2020-04-29 07:56 | Emergency (ER) | payer MEDICARE ==
[~2020-04-29] VITALS: Ht 167.6 cm; Wt 154.8 kg
[~2020-04-29 07:56] MED LIST changes: -MUCI600T31 PO; -PREV1CAP PO
[2020-04-29] MEDS ORDERED: BASA100I SC (08:14)
[2020-04-29] MEDS ORDERED: MUCI600T31 PO (08:14)
[2020-04-29] MEDS ORDERED: PREV1CAP PO (08:14)
[2020-04-29] MEDS ORDERED: BOOSTRIX/ADACEL VACCINE (DIPHTH/PERTUSS/ACELL/TETANUS) 0.5ML SYR IM ONE (08:45)
--- NOTE | 2020-04-29 09:00 | REP ---
INDICATION: fall open skin tear/ecchymosis to ant curiel COMPARISON: None. TECHNIQUE: There are four views. FINDINGS: There is no fracture or dislocation. Normalization is normal. There is calcified vascular atheroma. There are numerous small densities in the soft tissues anteromedial to the tibial midshaft. These could represent soft tissue calcifications or foreign bodies. There is osteoarthritis of the right knee. IMPRESSION: Foreign bodies versus soft tissue calcifications of the mid shaft of the tibia. No fracture or dislocation. right knee osteoarthritis. <Electronically signed by Jean Claude Mora > 04/29/20 [id number]
[2020-04-29] MEDS ORDERED: DERMABOND TOPICAL SKIN ADHESIVE TOP ONE (09:30)
[2020-04-29 09:48] VITALS: BP 146/65
== END 2020-04-29 10:15 | disposition home or self-care (01) ==
LOC: M ED 07:56
DX: S60.412A Abrasion of right middle finger, initial encounter (principal); S60.416A Abrasion of right little finger, initial encounter; S81.811A Laceration without foreign body, right lower leg, initial encounter; W18.39XA Other fall on same level, initial encounter; Y92.410 Unspecified street and highway as the place of occurrence of the external cause; E11.9 Type 2 diabetes mellitus without complications; I10 Essential (primary) hypertension; I48.91 Unspecified atrial fibrillation; R01.1 Cardiac murmur, unspecified; Z79.899 Other long term (current) drug therapy; Z79.4 Long term (current) use of insulin; Z79.01 Long term (current) use of anticoagulants

== ENCOUNTER 2020-07-14 10:52 | Inpatient (IN) | payer MEDICARE ==
[~2020-07-14] VITALS: Ht 170.2 cm; Wt 150.9 kg
[~2020-07-14 10:52] MED LIST changes: +CALCITRIOL 0.25 MCG CAP (S0169) PO SCH; -FLON1SPR; +FLON1SPR NARES; -FLUO15CR3 EXT; +FLUO15CR3 TOP; +MUCI600T31 PO; +PREV1CAP PO
[2020-07-14 11:49] LABS: BASO % 0.3 % (0.0-1.0); HEMATOCRIT 40.4 % (42.0-52.0); HEMOGLOBIN 12.1 g/dl (13.5-17.5); LYMPH # 1.2 10^3/uL (1.5-5.0); LYMPH % 14.9 % (24.0-44.0); MEAN CORPUSCULAR HEMOGLOBIN 31.2 pg (27.0-33.0); MEAN CORPUSCULAR VOLUME 104.1 fl (80.0-96.0); MONO # 0.5 10^3/uL (0.0-0.8); MONO % 5.9 % (2.0-8.0); NEUTROPHILS # 6.1 10^3/uL (1.5-8.5); NEUTROPHILS % 78.5 % (36.0-66.0); PLATELET COUNT, AUTOMATED 158 10^3/uL (150-450); RED BLOOD COUNT 3.88 10^6/uL (4.30-6.10); WHITE BLOOD COUNT 7.8 10^3/uL (4.0-10.0)
--- NOTE | 2020-07-14 11:51 | REP ---
INDICATION: DYSPNEA/COUGH COMPARISON: 05/15/2019 TECHNIQUE: Portable AP view of the chest FINDINGS: Cardiomegaly is again appreciated. Increased interstitial markings and mild cephalization cannot be excluded raising the possibility of early pulmonary interstitial edema. No focal consolidation. No obvious effusion. No pneumothorax. IMPRESSION: Cannot exclude early pulmonary interstitial edema. <Electronically signed by Colt Fagan > 07/14/20 [id number]
[2020-07-14 12:00] LABS: INR 2.3; PROTHROMBIN TIME 25.8 SECONDS (12.5-14.3)
[2020-07-14] MEDS ORDERED: FUROSEMIDE 100MG/10ML VIAL (J1940) IV ONE (12:20)
[2020-07-14 12:56] LABS: ALBUMIN 2.9 GM/DL (3.2-5.2); BILIRUBIN,DIRECT 0.1 MG/DL (0.0-0.2); BILIRUBIN,TOTAL 0.3 MG/DL (0.2-1.0); CALCIUM LEVEL 8.2 MG/DL (8.8-10.2); CREATININE FOR GFR 1.93 MG/DL (0.70-1.30); GLOMERULAR FILTRATION RATE 36.1 (>42); MB/CK RELATIVE INDEX 2.07 (< OR =4); POTASSIUM SERUM 4.2 MEQ/L (3.5-5.1); THYROID STIMULATING HORMONE 3.95 uIU/ML (0.358-3.740); THYROXINE (T4) 5.7 UG/DL (4.5-12.0); TOTAL PROTEIN 6.5 GM/DL (6.4-8.2); TROPONIN I 0.02 NG/ML (< 0.10)
[2020-07-14] MEDS ORDERED: methylPREDNISolone 40MG 1ML VIAL IV ONE (13:05)
[2020-07-14] MEDS ORDERED: IPRATROPIUM 0.5MG/ALBUTEROL 2.5MG INH SOL UD 3ML (DUONEB) NEB ONE (13:05)
[2020-07-14] MEDS ORDERED: ALBUTEROL SULFATE 2.5 MG/0.5 ML INH NEB SOLN INH ONE (13:05)
--- NOTE | 2020-07-14 14:03 | REP ---
INDICATION: ro dvt COMPARISON: None. TECHNIQUE: Fajardo scale and color Doppler evaluation bilateral lower extremities using linear high frequency transducer. FINDINGS: Ultrasound examination of the right and left lower extremity deep venous structures from the common femoral vein to the popliteal vein demonstrates normal compressibility flow and wave patterns in response to respiration and augmentation. There is no evidence for deep venous thrombosis. IMPRESSION: No evidence for deep venous thrombosis. <Electronically signed by Colt Fagan > 07/14/20 [id number]
[2020-07-14 14:19] LABS: PARTIAL THROMBOPLASTIN TIME 50.1 SECONDS (24.2-38.5)
[2020-07-14 14:20] LABS: D-DIMER QUANT 522.89 ng/ml (<500)
[2020-07-14 15:52] VITALS: O2SAT 86
[2020-07-14] MEDS ORDERED: OCUVTAB4 PO (16:12)
[2020-07-14] MEDS ORDERED: WARF-23 PO (16:12)
[2020-07-14] MEDS ORDERED: LOSA100T50 PO (16:12)
[2020-07-14] MEDS ORDERED: KP F1200 PO (16:12)
[2020-07-14] MEDS ORDERED: FIBE625T PO (16:12)
[2020-07-14] MEDS ORDERED: CALC1CAP31 PO (16:12)
[2020-07-14] MEDS ORDERED: VITA50005 PO (16:12)
[2020-07-14] MEDS ORDERED: TORS100T PO (16:12)
[2020-07-14] MEDS ORDERED: guaiFENesin ER 600 MG TAB PO PRN (16:25)
[2020-07-14] MEDS ORDERED: GLUCOSE 4GM CHEW TABLET PO PRN (16:25)
[2020-07-14] MEDS ORDERED: DEXTROSE 50% 50 ML SYRINGE IV PRN (16:25)
[2020-07-14] MEDS ORDERED: FLUTICASONE PROP 0.05% NASAL SPRAY 16 GM (FLONASE) NARES PRN (16:25)
[2020-07-14] MEDS ORDERED: GLUCAGON INJ 1MG VIAL SC PRN (16:25)
[2020-07-14] MEDS ORDERED: ACETAMINOPHEN TAB 650MG DOSE (2X325MG) PO PRN (16:25)
--- NOTE | 2020-07-14 16:45 | HPEPDOC ---
General Date of Admission 07/14/20 Date of Service: Jul 14, 2020 Chief Complaint The patient is a 75-year-old male admitted with a reason for visit of Per Pcp / Low Oxygen. Source: Patient Exam Limitations: No limitations Timing/Duration: Week(s) Severity: Moderate History of Present Illness Patient 75 years old male with past medical history of atrial fibrillation on warfarin, hyperlipidemia, type 2 diabetes, CKD type 3 presented to the hospital with increased shortness of breath. Patient stated that he has been having orthopnea with increased shortness of breath for past 2-3 weeks. Patient stated that shortness of breath became progressively worse, he couldn't tolerate a minimal physical activity. He has intermittent cough with clear sputum. Patient stated that he has been having increased shortness of breath with minimal exertion for past few days. He also noticed increased leg swelling bilaterally. In ER patient was found to have no leukocytosis, hemoglobin 12.1, lactic acid 2.2, creatinine 1.9, BNP 344. Chest x-ray showed increased interstitial markings with cardiomegaly. Home Medications Scheduled Allopurinol (Zyloprim) 300 Mg Tab, 300 MG PO DAILY, (Reported) Atorvastatin Calcium (Atorvastatin Calcium) 20 Mg Tab, 20 MG PO DAILY, (Reported) Calcitriol (Calcitriol) 0.25 Mcg Capsule, 0.25 MCG PO 5XW, (Reported) SAT THRSat Calcium Polycarbophil (Fibercon) 625 Mg Tablet, 1,250 MG PO BID, (Reported) Cyanocobalamin (Vitamin B-12) (Vitamin B-12) 100 Mcg Tablet, 100 MCG PO DAILY, (Reported) Ergocalciferol (Vitamin D2) (Vitamin D2) 50,000 Units Cap, 50,000 UNITS PO QWEEK, (Reported) FRIDAYS Fish Oil/Dha/Epa (Fish Oil 1,200 mg Fish Oil) 1 Each Capsule, 1,200 MG PO BID, (Reported) Fluocinolone Acet (Fluocinolone Acetonide) 1 Dose/15 Gm Cream, 1 DOSE TOP 2XW, (Reported) APPLY TO RIGHT EAR ON WED AND SAT Insulin Aspart (Novolog Flexpen) 100 Unit/Ml Inj, 1 DOSE SC AC, (Reported) PER SLIDING SCALE Insulin Glargine,Hum.rec.anlog (Basaglar Kwikpen U-100) 100 Unit/Ml Inj, 30 UNIT SC QAM, (Reported) Insulin Glargine,Hum.rec.anlog (Basaglar Kwikpen U-100) 100 Unit/1 Ml Insuln.pen, 20 UNIT SC QPM, (Reported) Lansoprazole (Prevacid) 30 Mg Capsule.dr, 30 MG PO DAILY, (Reported) Losartan Potassium (Losartan Potassium) 100 Mg Tablet, 100 MG PO QHS, (Reported) Magnesium Chloride (Slow-Mag) 1 Tab Tab, 1 TAB PO DAILY, (Reported) Pregabalin (Lyrica) 100 Mg Cap, 100 MG PO BID, (Reported) Torsemide (Torsemide) 100 Mg Tablet, 50 MG PO BID, (Reported) Verapamil HCl (Verapamil ER) 120 Mg Cap24h.pel, 120 MG PO QHS, (Reported) Vit A/Vit C/Vit E/Zinc/Copper (Preservision Areds Tablet) 1 Each Tablet, 1 TAB PO BID, (Reported) Warfarin Sodium (Warfarin Sodium) 5 Mg Tab, 5 MG PO 6XWK, (Reported) SAT, SAT, , SAT, , SAT PM Warfarin Sodium (Warfarin Sodium) 5 Mg Tablet, 2.5 MG PO 1XWK, (Reported) SATURDAY PM Scheduled PRN Fluticasone Propionate (Flonase Allergy Relief) 50 Mcg/Act Spr, 2 SPRAYS NARES DAILY PRN for CONGESTION, (Reported) Guaifenesin (Mucinex) 600 Mg Tab.er.12h, 600 MG PO BID PRN for CONGESTION, (Reported) Allergies Coded Allergies: No Known Allergies (Unverified , 02/17/19) Past Medical History Medical History ATRIAL FIBRILLATION-PAROXYSMAL; WAFARIN MONITORED HERE HYPERLIPIDEMIA TYPE 2 DIABETES - DR. UNDERWOOD CKD3 - DR. Ilya CUMMINGS HYPERTENSION CHRONIC DIASTOLIC HEART FAILURE--ECHO 07/21, EF 75%, LA MM, MILD ; ECHO 03/26: EF 65%, MILD , LVH NOTED. 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 NO OBSTRUCTIVE COMPONENET. B12 DEFICICENCY CENTRAL SPINAL CANAL STENOSIS L/S SPINE L4-L5 MRI 03/21--SAW DR PIEDAD SANDERS, FELT "TOO HIGH A RISK" PER PT PROSTATE CA--GUICHO 6/7 TRUSS BX 01/22 - S/P RADICAL PROSTATECTOMY 06/25 T2 N0 MX; NEEDS ANNUAL PSA IN JAN ECHO: 01/09/18: LVEF 70%. GRADE 2 LV DIASTOLIC DYSUNCTION. NORMAL LV SYSTOLIC FUNCTION. CALCIFIC AORTIC VALVE DISEASE WITH MILD AORTIC STENOSIS AND MILD AORTIC REGURGITATION. MILD DILASTATION OF THE PROXIMAL ASCENDING AORTA. MILD LEFT ATRIAL DILATATION BY LEFT ATRIAL VOLUME INDEX. SEVER MITRAL ANNUAL CALCIIFICATION. VERY MILD REGURGITATION. NO MITRAL STENOSIS HOLTER MONITOR 07/2018: SINUS BRADYCARDIA, 55BPM WITH 1ST DEGREE AV BLOCK. LEFT AXIS DEVIATION AND POOR R WAVE PROGRESSION HARD OF HEARING - DOESN'T WEAR HIS HEARING AIDS Surgical History APPENDECTOMY NO PERSONAL OR FHX OF SEVERE REACTION TO ANESTHESIA PILONIDAL CYST CTS SX NASAL POLYPECTOMY TRUS BX 01/2012 CARPAL TUNNEL RELEASE - LEFT HAND RADICAL PROSTATECTOMY 07/08/2012 COLONOSCOPY - DIVERTICULOSIS, REPEAT 5 YEARS 06/[address] [facility] [address]. UNDERWOOD RIGHT KNEE SCOPE 01/21/18 COLONOSCOPY - RECTAL POLYPS REMOVED, DR. WAKEFIELD, REPEAT IN 5 YEARS 02/2019 EGD - DUODENITIS, DR. WAKEFIELD 02/2019 Family History MOTHER: , COLON CARCINOMA SIBLINGS: , BROTHER DISED PANCREATIC CA REVIEWED, NO CHANGES. NO KNOWN FAMILY HX OF UROLOGIC DISEASES CANCERS. Social History * Smoker: Denies Alcohol: Denies Drugs: denies A-FIB/CHADSVASC A-FIB History Current/History of A-Fib/PAF?: Yes Current PO Anticoag Therapy: Yes Review of Systems Constitutional: Denies: Chills Eyes: Denies: Pain ENT: Denies: Head Aches Skin: Denies: Rash Pulmonary: Reports: Dyspnea Cardiovascular: Reports: Orthopnea, Paroxysmal Noc. Dyspnea, Edema; Denies: Chest Pain, Palpitations Gastrointestinal: Denies: Nausea Genitourinary: Denies: Dysuria, Frequency Hematologic: Denies: Bruising, Bleeding Excessively Endocrine: Denies: Polydipsia, Polyphagia Musculoskeletal: Denies: Neck Pain Neurological: Denies: Weakness Psych: Reports: Mood Normal Physical Examination General Exam: Positive: Alert, Cooperative Eye Exam: Positive: PERRLA ENT Exam: Positive: Atraumatic Neck Exam: Positive: Supple, JVD Chest Exam: Positive: Diminished Heart Exam: Positive: Irregular Rhythm Telemetry: Positive: Atrial fibrillation Abdomen Exam: Positive: Normal bowel sounds Extremity Exam: Negative: Clubbing Skin Exam: Positive: Nl turgor and temperature Neuro Exam: Positive: Cranial Nerves 3-12 NL Psych Exam: Positive: Mental status NL Vital Signs Vital Signs Date Time Temp Pulse Resp B/P (MAP) Pulse Ox O2 Delivery O2 Flow Rate FiO2 07/14/20 15:52 86 Room Air 07/14/20 15:15 64 18 120/58 (78) 07/14/20 14:15 2.0 07/14/20 10:53 97.9 Laboratory Data Labs 24H Laboratory Tests 2 07/14/20 11:20: Immature Granulocyte % (Auto) 0.4, Neutrophils (%) (Auto) 78.5H, Lymphocytes (%) (Auto) 14.9L, Monocytes (%) (Auto) 5.9, Eosinophils (%) (Auto) 0.0, Basophils (%) (Auto) 0.3, Neutrophils # (Auto) 6.1, Lymphocytes # (Auto) 1.2L, Monocytes # (Auto) 0.5, Eosinophils # (Auto) 0.0, Basophils # (Auto) 0.0, Nucleated Red Blood Cells % (auto) 0.0, Prothrombin Time 25.8H, Prothromb Time International Ratio 2.30, Activated Partial Thromboplast Time 50.1H, D-Dimer, Quantitative 522.89H, Anion Gap 6L, Glomerular Filtration Rate 36.1L, Lactic Acid Level 2.2*H, Calcium Level 8.2L, Magnesium Level 2.0, Total Bilirubin 0.3, Direct Bilirubin 0.1, Aspartate Amino Transf (AST/SGOT) 17, Alanine Aminotransferase (ALT/SGPT) 24, Alkaline Phosphatase 102, Total Creatine Kinase 145, Creatine Kinase MB 3.0, Creatine Kinase MB Relative Index 2.07, Troponin I 0.02, SV-Vns-G-Type Natriuretic Peptide 344, Total Protein 6.5, Albumin 2.9L, Albumin/Globulin Ratio 0.8, Thyroid Stimulating Hormone (TSH) 3.950H, Thyroxine (T4) 5.7 07/14/20 11:35: POC Troponin I (Misc) 0.02 07/14/20 15:36: Bedside Glucose (Misc Panel) 128H CBC/BMP Laboratory Tests 07/14/20 11:20 Microbiology Microbiology 07/14/20 Respiratory Virus Panel (PCR) (BHAKTI) - Final, Complete 07/14/20 Blood Culture, Received Pending Assessment/Plan Patient 75 years old male with past medical history of atrial fibrillation on warfarin, hyperlipidemia, type 2 diabetes, CKD type 3 presented to the hospital with increased shortness of breath. Patient stated that he has been having orthopnea with increased shortness of breath for past 2-3 weeks. Patient stated that shortness of breath became progressively worse. Also he noticed leg swelling. In ER patient was found to have no leukocytosis, hemoglobin 12.1, lactic acid 2.2, creatinine 1.9, BNP 344. Chest x-ray showed increased interstitial markings with cardiomegaly. Problems (1) Acute CHF (congestive heart failure) Status: Acute Problem Text: Patient has plus JVD, orthopnea, increased leg swelling His BNP was not elevated but the patient is morbidly obese and BNP can be artificially normal. Differential diagnosis also includes PE, however well's score showed low probability. Doppler ultrasound negative for DVT Most likely patient developed Diastolic CHF exacerbation. I's and O's Echo pending Cardiac diet Lasix IV (2) Acute on chronic kidney failure Status: Acute Problem Text: Acute on chronic Most likely superimposed with intravascular depletion secondary to CHF exacerbation Continue to monitor (3) Dyspnea Status: Acute Problem Text: Due to CHF exacerbation See above Continue treatment with oxygen (4) Atrial fibrillation Status: Chronic Problem Text: Heart rate is under control Continue warfarin, INR within therapeutic range (5) Hyperlipidemia Status: Chronic Problem Text: Continue statin (6) Diabetes mellitus Status: Chronic Problem Text: Glucose level under control Diabetes diet Detemir twice a day Insulin sliding scale Plan / VTE VTE Prophylaxis Ordered?: Yes MOUSTAPHA JENNINGS DO Jul 14, 2020 16:45
[2020-07-14] MEDS ORDERED: WARFARIN SOD 5MG TAB PO SCH (17:00)
[2020-07-14 17:33] VITALS: BP 148/61
[2020-07-14 17:53] LABS: INR 2.49; PROTHROMBIN TIME 27.5 SECONDS (12.5-14.3)
[2020-07-14] MEDS: FUROSEMIDE 40MG/4ML VIAL (J1940) IV SCH (18:08)
[2020-07-14] MEDS: HumaLOG INSULIN (NovoLOG) PER UNIT SC SCH ×2 (18:12→21:30)
[2020-07-14] MEDS: LEVEMIR (INSULIN DETEMIR) 1 UNITS/0.01ML SC SCH (21:30)
[2020-07-14] MEDS: PREGABALIN 100 MG CAP (LYRICA) PO SCH (21:31)
[2020-07-14] MEDS: FIBER-CON 625 MG TAB PO SCH (21:31)
[2020-07-14] MEDS: VERAPAMIL 120 MG SR TAB PO SCH (21:40)
[2020-07-14 22:00] VITALS: BP 152/65
[2020-07-15] MEDS: FUROSEMIDE 40MG/4ML VIAL (J1940) IV SCH ×3 (00:26→23:14)
[2020-07-15 05:47] LABS: HEMATOCRIT 38.1 % (42.0-52.0); HEMOGLOBIN 11.8 g/dl (13.5-17.5); MEAN CORPUSCULAR HEMOGLOBIN 31.6 pg (27.0-33.0); MEAN CORPUSCULAR VOLUME 102.1 fl (80.0-96.0); PLATELET COUNT, AUTOMATED 159 10^3/uL (150-450); RED BLOOD COUNT 3.73 10^6/uL (4.30-6.10); WHITE BLOOD COUNT 7.3 10^3/uL (4.0-10.0)
[2020-07-15 06:00] VITALS: BP 138/66
[2020-07-15 06:09] LABS: CALCIUM LEVEL 8.3 MG/DL (8.8-10.2); CREATININE FOR GFR 1.99 MG/DL (0.70-1.30); GLOMERULAR FILTRATION RATE 34.9 (>42); POTASSIUM SERUM 4.9 MEQ/L (3.5-5.1)
--- NOTE | 2020-07-15 08:04 | ECGEPIP ---
[facility] - ED Test Date: 2020-07-14 Pat Name: KOLTON VELASQUEZ Department: Room: - Gender: Male [employer] Con[employer] Technician: JMGERMÁN : 1945 Requested By: Kristina Hallman Order Number: [id number] Reading MD: Swetha Pabon Measurements Intervals [place] Rate: 71 P: 30 WV: 214 QRS: -51 QRSD: 92 T: 53 QT: 400 QTc: 434 Interpretive Statements Sinus rhythm with 1st degree AV block Left anterior fascicular block Inferior infarct , age undetermined increased rate 08/23/17 Electronically Signed on 07-15-2020 8:04:20 EST by Swetha Pabon
[2020-07-15] MEDS: LEVEMIR (INSULIN DETEMIR) 1 UNITS/0.01ML SC SCH ×2 (08:26→21:16)
[2020-07-15] MEDS: ATORVASTATIN 20 MG TAB PO SCH (08:27)
[2020-07-15] MEDS: HumaLOG INSULIN (NovoLOG) PER UNIT SC SCH ×4 (08:27→21:16)
[2020-07-15] MEDS: FIBER-CON 625 MG TAB PO SCH ×2 (08:28→21:15)
[2020-07-15] MEDS: allopurinoL 300 MG TAB PO SCH (08:29)
[2020-07-15] MEDS: PREGABALIN 100 MG CAP (LYRICA) PO SCH ×2 (08:31→21:13)
[2020-07-15] MEDS ORDERED: CALCITRIOL 0.25 MCG CAP (S0169) PO SCH (09:00)
[2020-07-15] MEDS ORDERED: VITAMIN D 50,000 UNITS CAPSULE (ERGOCALCIFEROL 1.25MG) PO SCH (09:00)
--- NOTE | 2020-07-15 11:18 | IPNPDOC ---
Text Note Date of Service The patient was seen on 07/15/20. NOTE Subjective: No any acute events overnight. Patient stated that his breathing m arkedly improved. Patient developed a good urine output overnight Objective: GENERAL APPEARANCE: Morbidly obese male HEENT: no scleral icterus, plu JVD, EOMI CARDIOVASCULAR: Irregularly irregular LUNGS: Diminished lung sounds bilaterally ABDOMEN: soft & not tender w palpitation MUSCULOSKELETAL: +2 non pitting edema INTEGUMENT: no generalized pallor NEUROLOGICAL: cranial nerve function from 2-12 intact intact, follows commands, speech not dysarthric Assessment/Plan Patient 75 years old male with past medical history of atrial fibrillation on warfarin, hyperlipidemia, type 2 diabetes, CKD type 3 presented to the hospital with increased shortness of breath. Patient stated that he has been having orthopnea with increased shortness of breath for past 2-3 weeks. Patient stated that shortness of breath became progressively worse. Also he noticed leg swelling. In ER patient was found to have no leukocytosis, hemoglobin 12.1, lactic acid 2.2, creatinine 1.9, BNP 344. Chest x-ray showed increased interstitial markings with cardiomegaly. Problems (1) Acute CHF (congestive heart failure) Diastolic CHF exacerbation I's and O's Echo pending Cardiac diet Lasix IV (2) Acute on chronic kidney failure Resolved Secondary to CHF exacerbation Continue to monitor (3) Dyspnea Resolved Due to CHF exacerbation See above (4) Atrial fibrillation Heart rate is under control Continue warfarin, INR within therapeutic range (5) Hyperlipidemia Continue statin (6) Diabetes mellitus Glucose level under control Diabetes diet Detemir twice a day Insulin sliding scale VS,Fishbone, I+O VS, Fishbone, I+O Laboratory Tests 07/14/20 11:20 07/15/20 05:16 Vital Signs Date Time Temp Pulse Resp B/P (MAP) Pulse Ox O2 Delivery O2 Flow Rate FiO2 07/15/20 09:00 2.0 07/15/20 06:00 97.2 80 20 138/66 (90) 96 Room Air I&O- Last 24 Hours up to 6 AM 07/15/20 06:00 Intake Total 300 ml Output Total 700 ml Balance -400 ml MOUSTAPHA JENNINGS DO Jul 15, 2020 11:18
[2020-07-15 14:00] VITALS: BP 168/62
[2020-07-15] MEDS ORDERED: WARFARIN SOD 5MG TAB PO SCH (17:00)
[2020-07-15 21:14] VITALS: BP 167/59
[2020-07-15] MEDS: VERAPAMIL 120 MG SR TAB PO SCH (21:14)
[2020-07-15 22:00] VITALS: BP 167/59
[2020-07-15] MEDS ORDERED: CEPACOL LOZENGE PO PRN (23:15)
[2020-07-16 05:28] LABS: BASO % 0.2 % (0.0-1.0); HEMATOCRIT 38.2 % (42.0-52.0); HEMOGLOBIN 11.8 g/dl (13.5-17.5); LYMPH # 2.2 10^3/uL (1.5-5.0); MEAN CORPUSCULAR HEMOGLOBIN 31.6 pg (27.0-33.0); MEAN CORPUSCULAR HGB CONC 30.9 g/dl (32.0-36.5); MEAN CORPUSCULAR VOLUME 102.1 fl (80.0-96.0); MONO # 0.9 10^3/uL (0.0-0.8); MONO % 6.8 % (2.0-8.0); NEUTROPHILS # 9.6 10^3/uL (1.5-8.5); NEUTROPHILS % 75.5 % (36.0-66.0); PLATELET COUNT, AUTOMATED 170 10^3/uL (150-450); RED BLOOD COUNT 3.74 10^6/uL (4.30-6.10); WHITE BLOOD COUNT 12.7 10^3/uL (4.0-10.0)
[2020-07-16 05:48] LABS: CREATININE FOR GFR 1.65 MG/DL (0.70-1.30); GLOMERULAR FILTRATION RATE 43.3 (>42); POTASSIUM SERUM 4.4 MEQ/L (3.5-5.1)
[2020-07-16 05:49] LABS: ALBUMIN 2.7 GM/DL (3.2-5.2); BILIRUBIN,TOTAL 0.3 MG/DL (0.2-1.0); CALCIUM LEVEL 8.7 MG/DL (8.8-10.2); MAGNESIUM LEVEL 2.2 MG/DL (1.8-2.4); TOTAL PROTEIN 6.9 GM/DL (6.4-8.2)
[2020-07-16 06:00] VITALS: BP 135/61
[2020-07-16] MEDS: HumaLOG INSULIN (NovoLOG) PER UNIT SC SCH (07:30)
[2020-07-16] MEDS: FIBER-CON 625 MG TAB PO SCH (08:06)
[2020-07-16] MEDS: ATORVASTATIN 20 MG TAB PO SCH (08:06)
[2020-07-16] MEDS: allopurinoL 300 MG TAB PO SCH (08:06)
[2020-07-16] MEDS: PREGABALIN 100 MG CAP (LYRICA) PO SCH (08:07)
[2020-07-16] MEDS: LEVEMIR (INSULIN DETEMIR) 1 UNITS/0.01ML SC SCH (08:07)
[2020-07-16] MEDS ORDERED: LASI40TA9 PO (09:53)
[2020-07-16 11:16] LABS: APPEARANCE, URINE CLEAR (CLEAR); BACTERIA, URINE AUTO NEGATIVE (NEGATIVE); BILIRUBIN, URINE AUTO NEGATIVE (NEGATIVE); BLOOD, URINE BLOOD 2+ (NEGATIVE); COLOR, URINE YELLOW (YELLOW); GLUCOSE, URINE (UA) AUTO NEGATIVE (NEGATIVE); KETONE, URINE AUTO NEGATIVE (NEGATIVE); LEUKOCYTE ESTERASE, URINE AUTO 3+ (NEGATIVE); NITRITE, URINE AUTO NEGATIVE (NEGATIVE); PROTEIN, URINE AUTO NEGATIVE (NEGATIVE); RBC, URINE AUTO 4 /HPF (0-3); SPECIFIC GRAVITY URINE AUTO 1.012 (1.002-1.035); SQUAMOUS EPITHELIAL CELL UR AU 0 /HPF (0-6); UROBILINOGEN, URINE AUTO 0.2 mg/dL (0.0-2.0); WBC, URINE AUTO 53 /HPF (0-3)
--- NOTE | 2020-07-16 11:48 | DS.PDOC ---
Discharge Summary General Date of Admission Jul 14, 2020 at 16:25 Date of Discharge 07/16/20 Discharge Summary PROCEDURES PERFORMED DURING STAY: [None]. ADMITTING DIAGNOSES: Acute CHF (congestive heart failure) Acute on chronic kidney failure Dyspnea Atrial fibrillation Hyperlipidemia Diabetes mellitus DISCHARGE DIAGNOSES: Acute CHF (congestive heart failure) Acute on chronic kidney failure Dyspnea Atrial fibrillation Hyperlipidemia Diabetes mellitus COMPLICATIONS/CHIEF COMPLAINT: Acute Chf. HISTORY OF PRESENT ILLNESS:Patient 75 years old male with past medical history of atrial fibrillation on warfarin, hyperlipidemia, type 2 diabetes, CKD type 3 presented to the hospital with increased shortness of breath. Patient stated that he has been having orthopnea with increased shortness of breath for past 2- 3 weeks. Patient stated that shortness of breath became progressively worse. Also he noticed leg swelling. In ER patient was found to have no leukocytosis, hemoglobin 12.1, lactic acid 2.2, creatinine 1.9, BNP 344. Chest x-ray showed increased interstitial markings with cardiomegaly. HOSPITAL COURSE: During the hospital stay the following issues addressed (1) Acute CHF (congestive heart failure) Diastolic CHF exacerbation I's and O's Echo pending Cardiac diet Patient received Lasix IV, developed good urine output (2) Acute on chronic kidney failure Secondary to CHF exacerbation Continue to monitor Resolved (3) Dyspnea Resolved Due to CHF exacerbation See above (4) Atrial fibrillation Heart rate is under control Continue warfarin, INR within therapeutic range (5) Hyperlipidemia Continue statin (6) Diabetes mellitus Glucose level under control Diabetes diet Detemir twice a day Insulin sliding scale DISCHARGE MEDICATIONS: Please see below. ALLERGIES: Please see below. PHYSICAL EXAMINATION ON DISCHARGE: VITAL SIGNS: Please see below. GENERAL APPEARANCE: Morbidly obese male HEENT: no scleral icterus, plu JVD, EOMI CARDIOVASCULAR: Irregularly irregular LUNGS: Diminished lung sounds bilaterally ABDOMEN: soft & not tender w palpitation MUSCULOSKELETAL: +2 non pitting edema INTEGUMENT: no generalized pallor NEUROLOGICAL: cranial nerve function from 2-12 intact intact, follows commands, speech not dysarthric LABORATORY DATA: Please see below. IMAGING: INDICATION: DYSPNEA/COUGH COMPARISON: 05/15/2019 TECHNIQUE: Portable AP view of the chest FINDINGS: Cardiomegaly is again appreciated. Increased interstitial markings and mild cephalization cannot be excluded raising the possibility of early pulmonary interstitial edema. No focal consolidation. No obvious effusion. No pneumothorax. IMPRESSION: Cannot exclude early pulmonary interstitial edema. PROGNOSIS: Fair ACTIVITY: [As tolerated]. DIET: Cardiac DISPOSITION: 01 Home, Self-Care. ITEMS TO FOLLOWUP ON ON OUTPATIENT: Follow-up with archives technician and PCP DISCHARGE CONDITION: [Stable]. TIME SPENT ON DISCHARGE:35 minutes. Vital Signs/I&Os Vital Signs Date Time Temp Pulse Resp B/P (MAP) Pulse Ox O2 Delivery O2 Flow Rate FiO2 07/16/20 09:00 2.0 07/16/20 06:00 97.2 63 18 135/61 (85) 93 Room Air I&O- Last 24 Hours up to 6 AM 07/16/20 06:00 Intake Total 1656 ml Output Total 3125 ml Balance -1469 ml Laboratory Data Labs 24H Laboratory Tests 2 07/15/20 16:46: Bedside Glucose (Misc Panel) 250H 07/15/20 20:05: Bedside Glucose (Misc Panel) 265H 07/16/20 05:12: Immature Granulocyte % (Auto) 0.5, Neutrophils (%) (Auto) 75.5H, Lymphocytes (%) (Auto) 17.0L, Monocytes (%) (Auto) 6.8, Eosinophils (%) (Auto) 0.0, Basophils (%) (Auto) 0.2, Neutrophils # (Auto) 9.6H, Lymphocytes # (Auto) 2.2, Monocytes # (Auto) 0.9H, Eosinophils # (Auto) 0.0, Basophils # (Auto) 0.0, Nucleated Red Blood Cells % (auto) 0.0, Anion Gap 1L, Glomerular Filtration Rate 43.3, Calcium Level 8.7L, Magnesium Level 2.2, Total Bilirubin 0.3, Aspartate Amino Transf (AST/SGOT) 20, Alanine Aminotransferase (ALT/SGPT) 28, Alkaline Phosphatase 95, Total Protein 6.9, Albumin 2.7L, Albumin/Globulin Ratio 0.6 07/16/20 05:58: Bedside Glucose (Misc Panel) 98 07/16/20 11:02: Urine Color YELLOW, Urine Appearance CLEAR, Urine pH 5.0, Urine Specific Mona 1.012, Urine Protein NEGATIVE, Urine Glucose (Auto)(UA) NEGATIVE, Urine Ketones (Auto) NEGATIVE, Urine Blood 2+H, Urine Nitrite NEGATIVE, Urine Bilirubin NEGATIVE, Urine Urobilinogen 0.2, Urine Leukocyte Esterase (Auto) 3+H, Urine WBC (Auto) 53H, Urine RBC (Auto) 4H, Urine Hyaline Casts (Auto) 0, Urine Bacteria (Auto) NEGATIVE, Urine Squamous Epithelial Cells 0, Urine Sperm (Auto) CBC/BMP Laboratory Tests 07/16/20 05:12 FSBS Laboratory Tests Test 07/15/20 16:46 07/15/20 20:05 07/16/20 05:58 Range/Units Bedside Glucose (Misc Panel) 250 265 98 83-110 MG/DL Microbiology Microbiology 07/14/20 Blood Culture - Preliminary, Resulted No growth after 24 hours . All specim... 07/14/20 Respiratory Virus Panel (PCR) (BHAKTI) - Final, Complete 07/14/20 Blood Culture - Preliminary, Resulted No Growth after 48 hours. All Specime... Discharge Medications Scheduled Allopurinol (Zyloprim) 300 Mg Tab, 300 MG PO DAILY, (Reported) Atorvastatin Calcium (Atorvastatin Calcium) 20 Mg Tab, 20 MG PO DAILY, (Reported) Calcitriol (Calcitriol) 0.25 Mcg Capsule, 0.25 MCG PO 5XW, (Reported) SAT THRU SAT Calcium Polycarbophil (Fibercon) 625 Mg Tablet, 1,250 MG PO BID, (Reported) Cyanocobalamin (Vitamin B-12) (Vitamin B-12) 100 Mcg Tablet, 100 MCG PO DAILY, (Reported) Ergocalciferol (Vitamin D2) (Vitamin D2) 50,000 Units Cap, 50,000 UNITS PO QWEEK, (Reported) FRIDAYS Fish Oil/Dha/Epa (Fish Oil 1,200 mg Fish Oil) 1 Each Capsule, 1,200 MG PO BID, (Reported) Fluocinolone Acet (Fluocinolone Acetonide) 1 Dose/15 Gm Cream, 1 DOSE TOP 2XW, ( Reported) APPLY TO RIGHT EAR ON SAT AND SAT Furosemide (Lasix) 40 Mg Tablet, 40 MG PO BID Insulin Aspart (Novolog Flexpen) 100 Unit/Ml Inj, 1 DOSE SC AC, (Reported) PER SLIDING SCALE Insulin Glargine,Hum.rec.anlog (Basaglar Kwikpen U-100) 100 Unit/Ml Inj, 30 UNIT SC QAM, (Reported) Insulin Glargine,Hum.rec.anlog (Basaglar Kwikpen U-100) 100 Unit/1 Ml Insuln.pen, 20 UNIT SC QPM, (Reported) Lansoprazole (Prevacid) 30 Mg Capsule.dr, 30 MG PO DAILY, (Reported) Losartan Potassium (Losartan Potassium) 100 Mg Tablet, 100 MG PO QHS, (Reported) Magnesium Chloride (Slow-Mag) 1 Tab Tab, 1 TAB PO DAILY, (Reported) Pregabalin (Lyrica) 100 Mg Cap, 100 MG PO BID, (Reported) Verapamil HCl (Verapamil ER) 120 Mg Cap24h.pel, 120 MG PO QHS, (Reported) Vit A/Vit C/Vit E/Zinc/Copper (Preservision Areds Tablet) 1 Each Tablet, 1 TAB PO BID, (Reported) Warfarin Sodium (Warfarin Sodium) 5 Mg Tab, 5 MG PO 6XWK, (Reported) SAT, SAT, , SAT, , SAT PM Warfarin Sodium (Warfarin Sodium) 5 Mg Tablet, 2.5 MG PO 1XWK, (Reported) SATURDAY PM Scheduled PRN Fluticasone Propionate (Flonase Allergy Relief) 50 Mcg/Act Spr, 2 SPRAYS NARES DAILY PRN for CONGESTION, (Reported) Guaifenesin (Mucinex) 600 Mg Tab.er.12h, 600 MG PO BID PRN for CONGESTION, (R eported) Allergies Coded Allergies: No Known Allergies (Unverified , 02/17/19) MOUSTAPHA JENNINGS DO Jul 16, 2020 11:48
--- NOTE | 2020-07-18 09:59 | ECHO ---
DATE OF PROCEDURE: 07/15/2020 Age: 75 Gender: Male Height: 67 inches Weight: 306 pounds Body surface area: 2.42 m2 PATIENT LOCATION: Inpatient [address] [place] [address], Room 4202. REFERRING PHYSICIAN: Adolfo Brown DO. INDICATION: Heart failure. MEASUREMENTS: 2D Measurements: RV 3.8 cm LV 5.1 cm Septum 1.4 cm Posterior wall 1.4 cm Aortic Root 3.3 cm LA 4.2 cm LVEF 75% Doppler Measurements: AV 3.24 m/s LVOT 0.97 m/s LVOT diameter 2.0 cm Mean AV gradient 25 mmHg Dimensionless index 0.3 MV-E 166, A 127, E/A ratio 1.3 Early mitral deceleration time 246 msec Mean MV gradient 5 mmHg E prime medial 5.1, A prime medial 6.2, E prime lateral 6.3 PV 0.8 m/s Pulmonary artery acceleration time 121 msec RVSP 32 mmHg IVC 2.0 cm COMMENTS: Normal sinus rhythm at 60 BPM without intraventricular conduction disturbance, but first degree AV block. Technically challenging study in light of the patients body habitus, but some diagnostically useful information was still obtained. M-mode and two-dimensional echocardiography was performed with pulse, continuous wave, color flow, and tissue Doppler studies. Moderate concentric left ventricular hypertrophy with hyperkinetic wall motion. Mildly dilated left atrium, but cannot comment on left ventricular diastolic function in light of mitral valve disorder. Normal right heart chamber sizes and motion with Doppler evidence of at least mild pulmonary hypertension. Normal IVC size and collapse against an elevated central venous pressure at this time. Normal aortic dimensions. Moderate calcific aortic stenosis with mild insufficiency. Severe mitral annular calcification with at least mild inflow tract obstruction and only very mild insufficiency. Normal appearing tricuspid valve with very mild insufficiency. Unable to detect intracardiac mass or pericardial effusion. MTDD
== END 2020-07-16 11:26 | disposition home or self-care (01) | DRG 291 ==
LOC: M ED 10:52 → M ED INP 16:25 → ENRESERV 16:38 → M MSPAV 17:33
PROVIDERS: ADMIT Internal Medicine; ATTEND Internal Medicine
DX: I13.0 Hypertensive heart and chronic kidney disease with heart failure and stage 1 through stage 4 chronic kidney disease, or unspecified chronic kidney disease (principal); I50.33 Acute on chronic diastolic (congestive) heart failure; I48.20 Chronic atrial fibrillation, unspecified; N17.9 Acute kidney failure, unspecified; N18.30 Chronic kidney disease, stage 3 unspecified; E78.5 Hyperlipidemia, unspecified; E11.9 Type 2 diabetes mellitus without complications; Z79.899 Other long term (current) drug therapy; Z79.4 Long term (current) use of insulin; Z87.891 Personal history of nicotine dependence; I48.0 Paroxysmal atrial fibrillation; M10.9 Gout, unspecified; G47.33 Obstructive sleep apnea (adult) (pediatric); E53.8 Deficiency of other specified B group vitamins; Z85.46 Personal history of malignant neoplasm of prostate

== ENCOUNTER → 2020-07-21 | Outpatient (REF) | payer MEDICARE ==
[~2020-07-21] MED LIST changes: +CALC1CAP31 PO; -CALCITRIOL 0.25 MCG CAP (S0169) PO SCH; +KP F1200 PO; +LASI40TA9 PO; +LOSA100T50 PO; +OCUVTAB4 PO; +TORS100T PO; +VITA50005 PO
== END ==
LOC: M LAB REF 16:43
PROVIDERS: ATTEND Internal Medicine Nephrology
DX: I50.32 Chronic diastolic (congestive) heart failure (principal)

== ENCOUNTER → 2020-08-02 | Outpatient (CLI) | payer MEDICARE ==
[2020-08-02 17:06] LABS: CALCIUM LEVEL 8.5 MG/DL (8.8-10.2); CREATININE FOR GFR 1.87 MG/DL (0.70-1.30); GLOMERULAR FILTRATION RATE 37.5 (>42); POTASSIUM SERUM 4.4 MEQ/L (3.5-5.1)
== END ==
LOC: M WUC 13:49
PROVIDERS: ATTEND Physician Assistant
DX: I50.32 Chronic diastolic (congestive) heart failure (principal); Z79.01 Long term (current) use of anticoagulants

== ENCOUNTER → 2020-08-11 | Outpatient (REF) | payer MEDICARE ==
[2020-08-11 13:36] LABS: HEMATOCRIT 42.1 % (42.0-52.0); HEMOGLOBIN 12.7 g/dl (13.5-17.5); MEAN CORPUSCULAR HEMOGLOBIN 31.8 pg (27.0-33.0); MEAN CORPUSCULAR HGB CONC 30.2 g/dl (32.0-36.5); MEAN CORPUSCULAR VOLUME 105.5 fl (80.0-96.0); PLATELET COUNT, AUTOMATED 169 10^3/uL (150-450); RED BLOOD COUNT 3.99 10^6/uL (4.30-6.10); WHITE BLOOD COUNT 7.5 10^3/uL (4.0-10.0)
[2020-08-11 14:12] LABS: CALCIUM LEVEL 8.2 MG/DL (8.8-10.2); CREATININE FOR GFR 1.79 MG/DL (0.70-1.30); GLOMERULAR FILTRATION RATE 39.4 (>42); POTASSIUM SERUM 4.7 MEQ/L (3.5-5.1)
== END ==
LOC: M SFHCPLAZ 12:16
PROVIDERS: ATTEND Family Medicine
DX: R06.02 Shortness of breath (principal)

== ENCOUNTER → 2020-08-11 | Outpatient (CLI) | payer MEDICARE ==
--- NOTE | 2020-08-11 13:16 | REPPI ---
INDICATION: SOB. COMPARISON: PA and lateral chest dated 08/23/2017 and portable chest dated 07/14/2020. TECHNIQUE: Upright PA and lateral chest. FINDINGS: The lung garcia are clear. Cardiac size is enlarged, unchanged. The tino, mediastinum and skeletal structures are unremarkable. IMPRESSION: Cardiomegaly, unchanged, otherwise, essentially negative PA and lateral chest <Electronically signed by Jean Cluade Mora > 08/11/20 1312
== END ==
LOC: M PLAIMG 12:30
PROVIDERS: ATTEND Family Medicine
DX: R06.02 Shortness of breath (principal)

== ENCOUNTER → 2020-10-28 | Outpatient (CLI) | payer MEDICARE ==
[~2020-10-28] MED LIST changes: +CEFD300C PO; +ERGO500029 PO; -VITA50005 PO
--- NOTE | 2020-10-30 10:11 | REP ---
INDICATION: ABN FINDING OF LUNG COMPARISON: 06/11/2012 TECHNIQUE: Axial noncontrast images from the thoracic inlet to the upper abdomen with coronal and sagittal reformations. This CT examination was performed using the following dose reduction techniques: Automated exposure control, adjustment of mA and/or kv according to the patient's size, and use of iterative reconstruction technique. FINDINGS: Examination is significantly limited by respiratory motion artifact. No obvious significant consolidation, nodule or mass lesion identified. No effusion. No pneumothorax. Tracheobronchial tree is grossly patent and normal. No significant adenopathy. Atherosclerotic changes to the thoracic aorta and coronary arteries noted without aortic aneurysm. No pericardial effusion. Musculoskeletal structures demonstrate degenerative changes without focal osseous abnormality. IMPRESSION: 1. Limited by significant respiratory motion artifact. 2. No obvious consolidation, nodule or mass. No effusion. No adenopathy. <Electronically signed by Colt Fagan > 10/30/20 1007
== END ==
LOC: M RAD 11:00
PROVIDERS: ATTEND Nurse Practitioner Adult Health
DX: R91.8 Other nonspecific abnormal finding of lung field (principal); Z79.01 Long term (current) use of anticoagulants
CPT/HCPCS: 71250; 85610; G0463

== ENCOUNTER → 2020-11-03 | Outpatient (CLI) | payer MEDICARE ==
[2020-11-03 13:51] LABS: BILIRUBIN,TOTAL 0.5 MG/DL (0.2-1.0); CALCIUM LEVEL 7.9 MG/DL (8.8-10.2); CHOLESTEROL RISK RATIO 3.23 (<5); CREATININE FOR GFR 1.88 MG/DL (0.70-1.30); GLOMERULAR FILTRATION RATE 37.2 (>42); MAGNESIUM LEVEL 2.5 MG/DL (1.8-2.4); POTASSIUM SERUM 4.2 MEQ/L (3.5-5.1); TOTAL PROTEIN 6.6 GM/DL (6.4-8.2)
== END ==
LOC: M WUC 10:12
PROVIDERS: ATTEND Physician Assistant
DX: E78.2 Mixed hyperlipidemia (principal); I50.32 Chronic diastolic (congestive) heart failure; I48.3 Typical atrial flutter

== ENCOUNTER 2020-11-05 06:41 | Emergency (ER) | payer MEDICARE ==
[~2020-11-05] VITALS: Ht 167.6 cm; Wt 150.0 kg
[~2020-11-05 06:41] MED LIST changes: -CEFD300C PO
[2020-11-05 07:57] LABS: BASO % 0.5 % (0.0-1.0); HEMATOCRIT 39.1 % (42.0-52.0); HEMOGLOBIN 11.6 g/dl (13.5-17.5); LYMPH # 1.8 10^3/uL (1.5-5.0); LYMPH % 29.3 % (24.0-44.0); MEAN CORPUSCULAR HEMOGLOBIN 30.4 pg (27.0-33.0); MEAN CORPUSCULAR HGB CONC 29.7 g/dl (32.0-36.5); MEAN CORPUSCULAR VOLUME 102.6 fl (80.0-96.0); MONO # 0.6 10^3/uL (0.0-0.8); NEUTROPHILS # 3.7 10^3/uL (1.5-8.5); NEUTROPHILS % 60.9 % (36.0-66.0); PLATELET COUNT, AUTOMATED 152 10^3/uL (150-450); RED BLOOD COUNT 3.81 10^6/uL (4.30-6.10); WHITE BLOOD COUNT 6.1 10^3/uL (4.0-10.0)
[2020-11-05 08:19] LABS: INR 2.62; PROTHROMBIN TIME 28.6 SECONDS (12.5-14.3)
[2020-11-05 08:36] LABS: ALBUMIN 2.8 GM/DL (3.2-5.2); ALT/SGPT 26 U/L (12-78); BILIRUBIN,DIRECT 0.2 MG/DL (0.0-0.2); BILIRUBIN,TOTAL 0.4 MG/DL (0.2-1.0); BLOOD UREA NITROGEN 62 MG/DL (7-18); CALCIUM LEVEL 7.7 MG/DL (8.8-10.2); CARBON DIOXIDE LEVEL 31 MEQ/L (21-32); CHLORIDE LEVEL 104 MEQ/L (98-107); CREATININE FOR GFR 1.86 MG/DL (0.70-1.30); GLOMERULAR FILTRATION RATE 37.7 (>42); GLUCOSE, FASTING 142 MG/DL (70-100); POTASSIUM SERUM 3.9 MEQ/L (3.5-5.1); SODIUM LEVEL 136 MEQ/L (136-145); TOTAL PROTEIN 6.5 GM/DL (6.4-8.2)
--- NOTE | 2020-11-05 08:46 | REPVR ---
PROCEDURE INFORMATION: Exam: CT Abdomen And Pelvis Without Contrast Exam date and time: 11/05/2020 7:47 AM Age: 75 years old Clinical indication: Other: Painless hematuria; Additional info: Painless hematuria, h/o prostate CA S/P prostatectomy TECHNIQUE: Imaging protocol: Computed tomography of the abdomen and pelvis without contrast. Radiation optimization: All CT scans at this facility use at least one of these dose optimization techniques: automated exposure control; mA and/or kV adjustment per patient size (includes targeted exams where dose is matched to clinical indication); or iterative reconstruction. COMPARISON: CT Chest without contrast 10/28/2020 11:21 AM FINDINGS: Liver: No mass. Gallbladder and bile ducts: No calcified stones. No ductal dilation. Pancreas: Mild pancreatic atrophy. Spleen: No splenomegaly. Adrenal glands: Normal. No mass. Kidneys and ureters: No hydronephrosis. Stomach and bowel: Colonic diverticulosis without evidence of diverticulitis. Appendix: No evidence of appendicitis. Intraperitoneal space: No free air. No significant fluid collection. Vasculature: Aortic and mitral annular and coronary artery calcifications are present. Moderate aortic and branch vessel atherosclerosis. Lymph nodes: No lymphadenopathy. Urinary bladder: Unremarkable as visualized. Reproductive: Prostatectomy changes. No pelvic lymphadenopathy. Bones/joints: No acute fracture. Soft tissues: Unremarkable. IMPRESSION: 1. No acute intra-abdominal abnormality. 2. No renal or ureteral calculi. No hydronephrosis. Prostatectomy changes. Electronically signed by: Dahs Sanchez On 11/05/2020 08:45:20 AM
[2020-11-05 11:27] LABS: CHLAMYDIA DNA AMPLIFICATION NEGATIVE (NEGATIVE); GC DNA AMPLIFICATION NEGATIVE (NEGATIVE)
[2020-11-05] MEDS ORDERED: CEFD300C PO (11:52)
[2020-11-05 12:10] VITALS: BP 144/89
== END 2020-11-05 12:11 | disposition home or self-care (01) ==
LOC: M ED 06:41
DX: N39.0 Urinary tract infection, site not specified (principal); R31.29 Other microscopic hematuria; N18.30 Chronic kidney disease, stage 3 unspecified; E11.9 Type 2 diabetes mellitus without complications; M10.9 Gout, unspecified; I11.0 Hypertensive heart disease with heart failure; G51.0 Bell's palsy; G47.33 Obstructive sleep apnea (adult) (pediatric); E78.5 Hyperlipidemia, unspecified; Z90.79 Acquired absence of other genital organ(s); C61 Malignant neoplasm of prostate; Z79.899 Other long term (current) drug therapy; Z79.01 Long term (current) use of anticoagulants
CPT/HCPCS: 36415; 74176; 80048; 80076; 81001; 85025; 85610; 87086; 87661; 99284; G0103

== ENCOUNTER → 2020-11-14 | Outpatient (REF) | payer MEDICARE ==
[~2020-11-14] MED LIST changes: +CEFD300C PO
[2020-11-15 13:43] LABS: APPEARANCE, URINE HAZY (CLEAR); BACTERIA, URINE AUTO 1+ (NEGATIVE); BILIRUBIN, URINE AUTO NEGATIVE (NEGATIVE); BLOOD, URINE BLOOD NEGATIVE (NEGATIVE); COLOR, URINE YELLOW (YELLOW); GLUCOSE, URINE (UA) AUTO NEGATIVE (NEGATIVE); KETONE, URINE AUTO NEGATIVE (NEGATIVE); LEUKOCYTE ESTERASE, URINE AUTO 3+ (NEGATIVE); MUCUS, URINE SMALL (NEGATIVE); NITRITE, URINE AUTO NEGATIVE (NEGATIVE); PROTEIN, URINE AUTO NEGATIVE (NEGATIVE); RBC, URINE AUTO 3 /HPF (0-3); SPECIFIC GRAVITY URINE AUTO 1.011 (1.002-1.035); SQUAMOUS EPITHELIAL CELL UR AU 1 /HPF (0-6); UROBILINOGEN, URINE AUTO 0.2 mg/dL (0.0-2.0); WBC, URINE AUTO 87 /HPF (0-3)
== END ==
LOC: M SFHCPLAZ 13:03
PROVIDERS: ATTEND Family Medicine
DX: R31.0 Gross hematuria (principal)

== ENCOUNTER → 2020-11-18 | Outpatient (REF) | payer MEDICARE ==
[2020-11-18 13:32] LABS: APPEARANCE, URINE CLEAR (CLEAR); BACTERIA, URINE AUTO NEGATIVE (NEGATIVE); BILIRUBIN, URINE AUTO NEGATIVE (NEGATIVE); BLOOD, URINE BLOOD 1+ (NEGATIVE); COLOR, URINE YELLOW (YELLOW); GLUCOSE, URINE (UA) AUTO NEGATIVE (NEGATIVE); KETONE, URINE AUTO NEGATIVE (NEGATIVE); LEUKOCYTE ESTERASE, URINE AUTO 3+ (NEGATIVE); NITRITE, URINE AUTO NEGATIVE (NEGATIVE); PROTEIN, URINE AUTO NEGATIVE (NEGATIVE); RBC, URINE AUTO 8 /HPF (0-3); SPECIFIC GRAVITY URINE AUTO 1.011 (1.002-1.035); SQUAMOUS EPITHELIAL CELL UR AU 1 /HPF (0-6); UROBILINOGEN, URINE AUTO 0.2 mg/dL (0.0-2.0); WBC, URINE AUTO 27 /HPF (0-3)
== END ==
LOC: M SMT 12:59
PROVIDERS: ATTEND Nurse Practitioner Women's Health
DX: R31.0 Gross hematuria (principal)
CPT/HCPCS: 81001; 85610; 87086; 88108; G0463

== ENCOUNTER → 2021-02-02 | Outpatient (CLI) | payer MEDICARE ==
[~2021-02-02] MED LIST changes: -VERA120T4 PO; +VERA120T77 PO
[2021-02-02 18:22] LABS: CALCIUM LEVEL 8.1 MG/DL (8.8-10.2); CREATININE FOR GFR 2.12 MG/DL (0.70-1.30); GLOMERULAR FILTRATION RATE 32.4 (>42); MAGNESIUM LEVEL 2.3 MG/DL (1.8-2.4)
== END ==
LOC: M PLALAB 13:25
PROVIDERS: ATTEND Physician Assistant
DX: I50.32 Chronic diastolic (congestive) heart failure (principal)

== ENCOUNTER 2021-03-01 02:08 | Emergency (ER) | payer MEDICARE ==
[~2021-03-01] VITALS: Ht 170.2 cm; Wt 151.2 kg
[~2021-03-01 02:08] MED LIST changes: +VERA120T71 PO; -VERA120T77 PO
[2021-03-01] MEDS ORDERED: NITROGLYCERIN 0.4 MG SUBL TABLET As Ordered ONE (02:34)
[2021-03-01] MEDS ORDERED: ASPIRIN 81 MG CHEW TABLET As Ordered ONE (02:34)
[2021-03-01 02:35] LABS: BASO % 0.3 % (0.0-1.0); HEMATOCRIT 40.2 % (42.0-52.0); HEMOGLOBIN 12.4 g/dl (13.5-17.5); LYMPH % 16.3 % (24.0-44.0); MEAN CORPUSCULAR HEMOGLOBIN 31.9 pg (27.0-33.0); MEAN CORPUSCULAR HGB CONC 30.8 g/dl (32.0-36.5); MEAN CORPUSCULAR VOLUME 103.3 fl (80.0-96.0); MONO # 0.8 10^3/uL (0.0-0.8); MONO % 6.3 % (2.0-8.0); NEUTROPHILS # 9.5 10^3/uL (1.5-8.5); NEUTROPHILS % 76.8 % (36.0-66.0); PLATELET COUNT, AUTOMATED 167 10^3/uL (150-450); RED BLOOD COUNT 3.89 10^6/uL (4.30-6.10); WHITE BLOOD COUNT 12.4 10^3/uL (4.0-10.0)
[2021-03-01] MEDS: NITROGLYCERIN 0.4 MG SUBL TABLET SL PRN ×2 (02:35→03:17)
[2021-03-01] MEDS ORDERED: ISOVUE-370 76% 100ML VIAL As Ordered ONE (02:35)
[2021-03-01] MEDS ORDERED: ASPIRIN 81 MG CHEW TABLET PO ONE (02:35)
[2021-03-01] MEDS ORDERED: BREO1INH PO (02:47)
[2021-03-01] MEDS ORDERED: CALC1CAP31 PO (02:47)
[2021-03-01] MEDS ORDERED: FURO40TA2 PO (02:47)
[2021-03-01 02:53] LABS: INR 2.73; PROTHROMBIN TIME 29.3 SECONDS (12.7-14.5)
[2021-03-01 03:10] LABS: CALCIUM LEVEL 8.3 MG/DL (8.8-10.2); CREATININE FOR GFR 2.04 MG/DL (0.70-1.30); GLOMERULAR FILTRATION RATE 33.8 (>42)
[2021-03-01] MEDS ORDERED: TICAGRELOR 90 MG TABLET (BRILINTA) PO ONE (03:15)
[2021-03-01] MEDS ORDERED: HEPARIN DRIP 25,000 UNITS in IV 1 EA IV SCH (03:15)
[2021-03-01] MEDS ORDERED: HEPARIN SOD (PORCINE) 5000UNITS/ML 1ML VIAL/SYRINGE IV ONE (03:15)
--- OUTSIDE RECORDS SUMMARY | 2021-03-01 03:15 | CCD ---
Author Author [facility] Organization [facility] Address Unknown Phone Unavailable Care Team Providers Care Crystal Slicer Name Role Phone Catarina Alicia Unavailable PROBLEMS Type Condition ICD9-CM Code YIN02-PW Code Onset Dates Condition S tatus W/U Status Risk SNOMED Code Notes Problem Vitamin B12 deficiency anemia, unspecified D51.9 Active confirmed 55580915 Problem Type 2 diabetes mellitus with diabetic nephropathy E11.21 Active confirmed 942884232 Problem Obstructive sleep apnea (adult) (pediatric) G47.33 Active confirmed 57009705 Problem Essential (primary) hypertension I10 Active conf irmed 64098522 Problem Personal history of malignant neoplasm of prostate Z85.46 Active confirmed 260250027 Problem Mixed hyperlipidemia E78.2 Active confirmed 665121162 Problem Encounter for therapeutic drug level monitoring Z5 1.81 Active confirmed 913383720 Problem shelter (current) use of insulin Z79.4 Activ e confirmed 692525438 Problem Paroxysmal atrial fibrillation I48.0 Active confir med 111378851 Problem 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.43 Active confirmed 43341310 Problem Allergic rhinitis, unspecifi ed allergic rhinitis trigger, unspecified rhinitis seasonality J30.9 Active confirmed 65433936 Problem shelter (current) use of anticoagulants Z79.01 Active confirmed 522038853 Problem Gout, unspecified M10.9 Active confirmed 90 461587 Problem Malignant neoplasm of prostate C61 Active confir med 212326712 Problem Spinal stenosis, lumbosacral region M48.07 Acti ve confirmed 72330036 Problem Vitamin D deficiency, unspecified E55.9 Active con firmed 52867403 Problem Chronic diastolic heart failure I50.32 Active confi rmed 001916384 Problem Morbid (severe) obesity due to excess calories E66 .01 Active confirmed 77442441371881 Problem Body mass index (BMI) of 50-59.9 in adult Z68.43 Active confirmed 057243788 Problem Mild aortic stenosis I35.0 Active confirmed 50042620 ALLERGIES Allergen (clinical drug ingredient) Drug/Non Drug Allergy do cumented on EMR Reaction Allergy Type Onset Date Status Jardiance ABBI Non Drug Allergy Active omeprazole Prilosec([facility] Code:[address]-32) Gyncomastia Drug Allergy Active ENCOUNTERS from 1943 to 2021-02-13 Encounter Location Date Provider Diagnosis [id number] [facility] [phone] [place] [address] Feb, Catarina Maral IMMUNIZATIONS Vaccine Route Administration Date Status Influenza 18 yrs & older Flublok IM Intramuscular Feb 12, 2018 Administered Influenza (High Dose 65 & up) IM Intramuscular Mar 06, 2017 A dministered Influenza (High Dose 65 & up) IM Intramuscular Feb 16, 2016 A dministered Influenza (High Dose 65 & up) IM Intramuscular Feb 17, 2015 A dministered Influenza 6mo & up Fluzone Unknown August 04, 2015 Refus ed Influenza 6mo & up Fluzone Unknown July 22, 2014 Refus ed Influenza 18 yrs & older Flublok IM Intramuscular Mar 06, 2019 Administered Influenza 6mo & up Fluzone IM Intramuscular Feb 18, 2014 Admi nistered Influenza Pharmacy Given Unknown Mar 01, 2020 Adminis tered Influenza 6mo & up Fluzone IM Intramuscular Mar 10, 2013 Admi nistered Influenza 6mo & up Fluzone IM Intramuscular Apr 17, 2012 Admi nistered SOCIAL HISTORY Tobacco Use: Social History Observation Description Date Details (start date - stop date) Former Smoker Sex Assigned At : Social History Observation Description Sex Assigned At Unknown Education: Question Answer Notes Level of Education: High School Audit Question Answer Notes Total Score: 0 Interpretation: Alcohol Education Language: Question Answer Notes Languages spoken: Hebrew Evangelical: Question Answer Notes Evangelical 33 None Drug and Alcohol Question Answer Notes Total Score: 0 Interpretation: No problems reported BMI Care Goal Follow-Up Question Answer Notes Above Normal BMI Follow-Up Giving encouragement to exercise Tobacco Use: Question Answer Notes Are you a: former smoker How long has it been since you last smoked? > 10 years REASON FOR REFERRAL No Information VITAL SIGNS No information MEDICATIONS Medication SIG (Take, Route, Frequency, Duration) Notes Start Da te End Date Status Fish Oil 1200 MG 2capsules Orally twice a day for 90 days Active Flonase 50 MCG/ACT 1 spray in each nostril Nasally Once a day as needed Jan, Active PreserVision AREDS - as directed Orally BID Active Mucinex 600 MG 1 tablet as needed Orally every 12 hrs 06 M 2020 Active Lansoprazole 30 MG TAKE ONE CAPSULE BY MOUTH ONCE DAILY for 90 Active Calcitriol 0.25 MCG 1 capsule Orally Saturday-Dec, Active Embrace Blood Glucose Test dx code 250.02 1 stip In Vitro four time s a day Active NovoLOG FlexPen 100 UNIT/ML as directed Subcutaneous w ith meals three times a day per sliding scale not to exceed 42 units in 24 hours Oct, Active Slow-Mag 535 (64 Mg) MG 1 tablet Orally Once a day Active Lancets - dx e11.9 as directed QID September, Active Glucagon Emergency 1 MG as directed Injection Daily as neede d for hypoglycemia Active Verapamil HCl ER 120 MG Take 1 tablet By Mouth once a day Orally On a day Active Basaglar KwikPen 100 UNIT/ML INJECT 30 UNITS SUBCUTANE OUSLY EVERY MORNING AND 20 UNITS AT BEDTIME for 90 Active Furosemide 40 MG 3 tablets Orally BID for 90 days Active Blood Glucose Test - as directed Dx E11.9 Test strips, QID for 62 Active FiberCon 625 MG 2 tablets as needed Orally bid on discharge 07/18/20 Jul, Active Mucinex 600 MG 1 tablet as needed Orally every 12 hrs Active Nyamyc 802848 UNIT/GM APPLY TO THE AFFECTED AREA(S ) of groin SKIN folds topically TWICE DAILY for 15 Act isaiah Coumadin 5 MG 1/2 tab saturday and , 5mg row Orally Once a day for 90 days DIRECTED Active Fluocinolone Acetonide 0.025 % apply topically to the right ear 2 times a day as needed as directed Externally once daily, up to twice a week. for 14 Active Bactrim DS 800-160 MG 1 tablet Orally as directed- 1 hour prior to cystoscopy Nov, Active Atorvastatin Calcium 20 MG 1 tablet orally Daily for 90 days Active Lyrica 100 MG 1 capsule Orally BID for 90 day(s) Active Fluocinolone Acetonide 0.01 % 1 application Externally Twice a day topically twice a week /weds,sun Jul, Active Betamethasone Valerate 0.1 % 1 application Externally Once a day for 7 day(s) Dec, Active Ergocalciferol 1.25 MG (61550 UT) 1 capsule Orally once a we ek for 90 days weekly FridaysJul, Active Cyanocobalamin 100 MCG as directed Orally on [facility] discharge 07/18/20 0 Jul, Active Losartan Potassium 100 MG Take 1 tablet By Mouth once a day Orally Once a day for 90 days Active PC Unifine Pentips 31G X 6 MM as directed dx: e11.21 _ Daily May, Not-Taking Allopurinol 300 MG take 1 tablet by mouth once daily once a day orally 90 days Orally Once a day for 90 day(s) Active PROCEDURES No Information RESULTS No Results REASON FOR VISIT refill MEDICAL (GENERAL) HISTORY Type Description Date Medical History Atrial fibrillation-paroxysmal; wafarin monitored here Medical History Hyperlipidemia Medical History Type 2 diabetes - Dr. Elam Medical History CKD3 - Dr. Ilya Gil Medical History Hypertension Medical History Chronic diastolic heart fail ure--echo 07/21, EF 75%, LA mm, mild ; echo 03/26: EF 65%, mild , LVH noted. 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 No obstructive componenet. Medical History B12 deficicency Medical History Central spinal canal stenosi s L/S spine L4-l5 MRI 03/21--saw Dr Chloe SANDERS, felt "too high a risk" per pt Medical History Prostate ca--[place] 6/7 RICHARD SS bx 01/22 - s/p radical prostatectomy 06/25 T2 n0 mx; needs annual PSA in Apr Medical History ECHO: 01/09/18: LVEF 70%. Gra de 2 LV diastolic dysunction. Normal LV systolic function. Calcific aortic valve disease with mild aortic stenosis and mild aortic regurgitation. Mild dilastation of the proximal ascending aorta. Mild left atrial dilatation by left atrial volume index. Sever mitral annual calciification. Very mild regurgitation. No mitral stenosis Medical History Holter monitor 07/2018: Sinus bradycardia, 55BPM with 1st degree AV block. left axis deviation and poor R wave progression Medical History Hard of hearing - doesn't wear his heari ng aids Medical History Hematuria Surgical History appendectomy Surgical History No personal or FHx of severe reaction to anesthesia Surgical History pilonidal cyst Surgical History CTS sx Surgical History nasal polypectomy Surgical History TRUS BX 01/2012 Surgical History carpal tunnel release - left hand Surgical History Radical Prostatectomy 07/08/2012 Surgical History Colonoscopy - Diverticulosis, repeat 5 y ears 06/[address] [facility] [address] Elam Right knee Scope 01/21/18 Surgical History Colonoscopy - rectal polyps removed, Dr. Tuttle, repeat in 5 years 02/2019 Surgical History EGD - duodenitis, Dr. Tuttle 02/2019 Surgical History cysto 11/23/2020 Surgical History dorsal slit 12/16/2020 Hospitalization History CHF 07/17/2010 Hospitalization History Surgical Related Goals Section No Information Health Concerns No Information MEDICAL EQUIPMENT No Information MENTAL STATUS No Information FUNCTIONAL STATUS No Information ASSESSMENTS No Information PLAN OF TREATMENT Medication Medication Name Sig Start Date Stop Date Atorvastatin Calcium 20 MG 1 tablet orally Daily for 90 days Lansoprazole 30 MG TAKE ONE CAPSULE BY MOUTH ONCE DAILY for 90 Next Appt Details Provider Name:Catarina Rodriguez Maral, 2021-03-01 02:15:00 PM, [address] [place] [address] , [place], [address], Provider Name:Melissa Luisemilee, 2021-05- 9 02:00:00 PM, [address] [place] [address] , [place], [address], Insurance Providers Payer Name Payer Address Payer Phone Insured Name Patient Relati onship to Insured Coverage Start Date Coverage End Date [employer] [facility] [address] [address] [facility] [phone] KOLTON KAMINSKI
--- OUTSIDE RECORDS SUMMARY | 2021-03-01 03:15 | CCD ---
Author Author [facility] Organization [facility] Address Unknown Phone Unavailable Care Team Providers Care Building Equipment Inspector Name Role Phone Catarina Alicia Unavailable PROBLEMS Type Condition ICD9-CM Code DST22-JD Code Onset Dates Condition S tatus W/U Status Risk SNOMED Code Notes Problem Vitamin B12 deficiency anemia, unspecified D51.9 Active confirmed 21743827 Problem Type 2 diabetes mellitus with diabetic nephropathy E11.21 Active confirmed 760804180 Problem Obstructive sleep apnea (adult) (pediatric) G47.33 Active confirmed 44694116 Problem Essential (primary) hypertension I10 Active conf irmed 22766346 Problem Personal history of malignant neoplasm of prostate Z85.46 Active confirmed 092597503 Problem Mixed hyperlipidemia E78.2 Active confirmed 541894814 Problem Encounter for therapeutic drug level monitoring Z5 1.81 Active confirmed 789639639 Problem longterm (current) use of insulin Z79.4 Activ e confirmed 507409613 Problem Paroxysmal atrial fibrillation I48.0 Active confir med 057775028 Problem 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.43 Active confirmed 37794343 Problem Allergic rhinitis, unspecifi ed allergic rhinitis trigger, unspecified rhinitis seasonality J30.9 Active confirmed 02017798 Problem longterm (current) use of anticoagulants Z79.01 Active confirmed 682669712 Problem Gout, unspecified M10.9 Active confirmed 90 195141 Problem Malignant neoplasm of prostate C61 Active confir med 981061730 Problem Spinal stenosis, lumbosacral region M48.07 Acti ve confirmed 98610576 Problem Vitamin D deficiency, unspecified E55.9 Active con firmed 07195964 Problem Chronic diastolic heart failure I50.32 Active confi rmed 399797789 Problem Morbid (severe) obesity due to excess calories E66 .01 Active confirmed 71499049696308 Problem Body mass index (BMI) of 50-59.9 in adult Z68.43 Active confirmed 920694390 Problem Mild aortic stenosis I35.0 Active confirmed 56734925 ALLERGIES Allergen (clinical drug ingredient) Drug/Non Drug Allergy do cumented on EMR Reaction Allergy Type Onset Date Status Jardiance ABBI Non Drug Allergy Active omeprazole Prilosec([facility] Code:[address]-46) Gyncomastia Drug Allergy Active ENCOUNTERS from 1943 to 2021-02-21 Encounter Location Date Provider Diagnosis [place] [id number] [facility] [phone] [place] [address] 11 Feb, 2021 Catarina Alicia Vitamin D deficiency, unspec ified E55.9 IMMUNIZATIONS Vaccine Route Administration Date Status Influenza [...] Education Language: Question Answer Notes Languages spoken: Brazilian Uatsdin: Question Answer Notes Uatsdin 33 None Drug and Alcohol Question Answer [...] as needed Orally every 12 hrs 06 2020 Active Lansoprazole 30 MG TAKE ONE [...] a day Orally On a day Active Ergocalciferol 1.25 MG (60524 UT) 1 capsule Orally once a we ek for 90 days weekly FridaysJul, Active Basaglar KwikPen 100 UNIT/ML INJECT 30 UNITS SUBCUTANE OUSLY EVERY MORNING AND 20 UNITS AT BEDTIME for 90 Active Lyrica 100 MG 1 capsule Orally BID for 90 day(s) Active FiberCon 625 MG 2 tablets as needed Orally bid on discharge 07/18/20 Jul, Active Mucinex 600 MG 1 tablet as needed Orally every 12 hrs Active Betamethasone Valerate 0.1 % 1 application Externally Once a day for 7 day(s) Dec, Active Coumadin 5 MG 1/2 tab saturday and [...] tablet orally Daily for 90 days Active Nyamyc 433075 UNIT/GM APPLY TO THE AFFECTED AREA(S ) of groin SKIN folds topically TWICE DAILY for 15 Act isaiah Fluocinolone Acetonide 0.01 % 1 application Externally Twice a day topically twice a week /weds,sun Jul, Active Furosemide 40 MG 3 tablets Orally BID for 90 days Active Blood Glucose Test - as directed Dx E11.9 Test strips, QID for 62 Active Cyanocobalamin 100 MCG as directed Orally on [facility] discharge 07/18/20 0 Jul, Active Losartan Potassium [...] Information RESULTS No Results REASON FOR VISIT New Refill Request MEDICAL (GENERAL) HISTORY Type Description Date Medical [...] 05/20 Medical History Former smoker, quit in 1974 Medical History PFTS 06/2010 - Consistent wit h body habitus. No obstructive componenet. Medical History B12 deficicency Medical History Central spinal canal stenosi s L/S spine L4-l5 MRI 03/21--saw Dr Chloe SANDERS, felt "too high a risk" per pt Medical History Prostate ca--Vibha 6/7 RICHARD SS bx 01/22 - s/p [...] No Information FUNCTIONAL STATUS No Information ASSESSMENTS Encounter Date Diagnosis Assessment Notes Treatment Notes Treatm ent Clinical Notes Feb, Vitamin D deficiency, unspecified (ICD-10 - E55. 9) PLAN OF TREATMENT Medication Medication Name Sig Start Date Stop Date Lansoprazole 30 MG TAKE ONE CAPSULE BY MOUTH ONCE DAILY for 90 Ergocalciferol 1.25 MG (91670 UT) 1 capsule Orally once a we ek for 90 days Jul, Atorvastatin Calcium 20 MG 1 tablet orally Daily for 90 days Next Appt Details Provider Name:Catarina Alicia, 2021-03-01 02:15:00 PM, [address] [facility] [phone], [place], [address], Provider Name:Melissa Alvarez, 2021-05-13 9 02:00:00 PM, [address] [facility] [phone], [place], [address], Insurance Providers Payer Name Payer Address Payer Phone Insured Name Patient Relati onship to Insured Coverage Start Date Coverage End Date [facility] [id number] [facility] [address] KOLTON KAMINSKI
[2021-03-01 03:16] LABS: RSV AMPLIFICATION NEGATIVE (NEGATIVE)
--- OUTSIDE RECORDS SUMMARY | 2021-03-01 03:16 | CCD | Continuity of Care Document ---
Author Author Gagandeep GILMORE-C Organization Unknown Address [address] [place] [address], [facility] [place] [address] Phone [phone] Care Team Providers Care Assessment Manager Name Role Phone Estefany Major RN ANP AUTM [phone] Parish Turner MD AUTM [phone] Brigid Gil MD AUTM [phone] Taya Elam MD AUTM [phone] Catarina Alicia MD AUTM [phone] Marii Patrick AUTM [phone] Problems Active Problems Provider Date Chronic diastolic heart failure Catarina Gilmore PA-C Onset: 05/22/2011 Benign hypertensive heart disease with congestive card iac failure Catarina Gilmore PA-C Onset: 05/22/2011 Atrial flutter Catarina Gilmore PA-C Onset: 05/22/2011 Electrocardiogram abnormal Catarina Gilmore PA-C Onset: 05/22 Aortic valve disorder Catarina Gilmore, PA-C Onset: 05/22/2011 Mitral valve disorder Catarina Gilmore, PA-C Onset: 05/22/2011 Hyperlipidemia Catarina Gilmore, PA-C Onset: 05/22/2011 Morbid obesity Catarina Gilmore, PA-C Onset: 05/22/2011 Obstructive sleep apnea syndrome Catarina Gilmore, PA-C Onset: 05/22/2011 Obesity Catarina Gilmore, PA-C Onset: 03/24/2015 Mixed hyperlipidemia Catarina Gilmore PA-C Onset: 05/02/2016 Dietary management surveillance BRETT CastilloRuiz Onset: 05/24/2017 Aortic valve stenosis with insufficiency BRETT Castillo Onset: 07/16/2019 Dyspnea Onset: 07/13/2020 Essential hypertension Onset: 01/29/2019 Social History Type Date Description Comments Sex Unknown Tobacco Use Start: Unknown End: Unknown Former Cigarette Smo ker smoked cigarettes up to 3ppd x 20 years. Quit 1973. ETOH Use Does not consume alcohol Tobacco Use Start: Unknown End: Unknown Patient is a former smoker smoked cigarettes up to 3ppd x 20 years. Quit 1973 Smoking Status Reviewed: 02/09/21 Patient is a former smoker sm oked cigarettes up to 3ppd x 20 years. Quit 1973 Exercise Type/Frequency Does yardwork sporadical ly Exercise Limitations Back Pain Exercise Limitations Shortness Of Breath Allergies, Adverse Reactions, Alerts Description No Known Drug Allergies Medications Active Medications SIG Qnty Indications Ordering Provide r Date Ergocalciferol 1.25mg (33581 Ut) C apsules 1 by mouth once a day Unknown 11/08/2020 Cyanocobalamin Crystals 1 by mouth daily Unknown 11/08/2020 Breo Ellipta 100-25mcg/Inh Aerosol 1 puff every day 60units R06.02 Estefany Major, RN ANP 10/12/2020 Vitamin B-12 100mcg Tablets 1 by mouth twice every day Unknown 01/31/2020 Lyrica 100mg Capsules 1 by mouth twice a day Catarina Alicia MD 01/31/2020 Calcitriol 0.25mcg Capsules 1 by mouth every Mon, Wed, Fri Marii Patrick FNP Basaglar Kwikpen 100 Unit/ML Solution Pen-Inject inject as directed Catarina Alicia MD Glucagon Emergency Kit For Low Blood Sug ar 1mg/ml Solution Rec as needed Catarina Alicia MD 01/31/2020 Mucinex 600mg Tablets ER 12HR 1 by mouth twice daily as needed Unknown 07/15/[address] 1 by mouth every day Unknown 07/15/2019 Preservision Areds 2 Areds 2 Capsu les 1 by mouth twice a day Unknown 07/15/2019 Albuterol Sulfate HFA 108(90Base) mcg/Act Aerosol 2 puffs four times a day as needed 25.5units Estefany Major RN ANP 07/14/[address] C[address] 1 by mouth bid Unknown 10/06/2018 Verapamil HCL ER 120mg Caps ER 24H R 1 by mouth every day 90caps Gagandeep Mendez MD 08/21/2018 Losartan Potassium 100mg Tablets 1 by mouth every night at bedtime 90tabs Gagandeep Mendez MD 12/03/2017 Vitamin D (Ergocalciferol) 58516Zprg Capsules 1 by mouth every weekly Georgie Raymundo FNP 09/01/2017 Atorvastatin Calcium 20mg Tablets 1 by mouth every night at bedtime Unknown 03/2018 Mag64 535(64mg) mg Tablets ER 1 by mouth daily I50.32 Gagandeep Mendez MD 02/01/2016 Novolog Flexpen 100U nit/ML Solution Pen-Inject sliding scale as directed Georgie Raymundo FN P 01/31/2016 Flonase Allergy Relief 50mcg/Act Suspension 2 sprays nasally daily as needed Yohannes العراقي MD 09/14/2014 Fluocinolone Acetonide 0.025% Oint ment apply to affected area bid as directed Yohannes Moore MD 05/29/2012 Coumadin 5mg Tablets R egulated by primary Yohannes Ragsdale MD 09/11/2007 Allopurinol 300mg Tablets 1 po daily 90tabs Catarina Gilmore PA-C Furosemide 40mg Tablets 3 by mouth twice every day I50.32 Brigid Gil MD Fiber 625mg Tablets daily Unknown Slow-Mag 71.5-119mg Tablets DR 1 tablet once a day Unknown Immunizations Description No Information Available Vital Signs Date Vital Result Comment 02/09/2021 11:35am Weight 336.00 lb Home Weight 330lb Height 67 inches 5'7" BMI (Body Mass Index) 52.6 kg/m2 Heart Rate 64 /min Regular Respiratory Rate 16 /min BP Systolic Right Arm 124 mmHg sitting, large cuf f BP Diastolic Right Arm 64 mmHg sitting, large cu ff 11/09/2020 11:11am Weight 340.00 lb Home Weight 333lb Height 67 inches 5'7" BMI (Body Mass Index) 53.2 kg/m2 Heart Rate 64 /min Regular Respiratory Rate 16 /min BP Systolic Right Arm 136 mmHg sitting, large cuf f BP Diastolic Right Arm 66 mmHg sitting, large cu ff Results Test Acquired Date Facility Test Result H/L Range Note Basic Metabolic Profile 02/02/2021 [facility] [phone] Glucose, Fasting 100 mg/dL Normal 70-100 Blood Urea Nitrogen 66 mg/dL High 7-18 Creatinine For GFR 2.12 mg/dL High 0.70-1.30 Glomerular Filtration Rate 32.4 Low >42 1 Sodium Level 140 mEq/L Normal 136-145 Potassium Serum 5.0 mEq/L Normal 3.5-5.1 Chloride Level 102 mEq/L Normal 98-107 Carbon Dioxide Level 32 mEq/L Normal 21-32 Anion Gap 6 mEq/L Low 8-16 Calcium Level 8.1 mg/dL Low 8.8-10.2 Laboratory test finding 02/02/2021 [facility] [phone] Magnesium Level 2.3 mg/dL Normal 1.8-2.4 2 BMP 11/08/2020 [facility] (315)- - Calcium Ser/Plasma Mass/Vol 8.6 Sodium 137.4 Carbon Dioxide Ser/Plasm 30.3 Chloride Serum/Plasma 100 Potassium 4.42 Glucose 116 High 70-106 Blood Urea Nitrogen 47.5 High 7-18 Creatinine 1.7 High 0.55-1.3 G F R 39 CBC without Differential 11/08/2020 [facility] (315)- - White Blood Count 7.3 5.0-10.0 Red Blood Count 3.83 Low 4.70-6.10 Platelets 167 Low 172-450 Hemoglobin 11.9 Low 14.0-18.0 Hematocrit 38.0 Low 42.0-52.0 Laboratory test finding 11/08/2020 [facility] (315)- - Magnesium Level 2.10 Comprehensive Metabolic Profil 11/03/2020 [facility] [phone] Glucose, Fasting 123 mg/dL High 70-100 Blood Urea Nitrogen 64 mg/dL High 7-18 Creatinine For GFR 1.88 mg/dL High 0.70-1.30 Glomerular Filtration Rate 37.2 Low >42 3 Sodium Level 137 mEq/L Normal 136-145 Potassium Serum 4.2 mEq/L Normal 3.5-5.1 Chloride Level 101 mEq/L Normal 98-107 Carbon Dioxide Level 31 mEq/L Normal 21-32 Anion Gap 5 mEq/L Low 8-16 Calcium Level 7.9 mg/dL Low 8.8-10.2 Ast/Sgot 22 U/L Normal 7-37 Alt/SGPT 24 U/L Normal 12-78 Alkaline Phosphatase 91 U/L Normal 45-117 Bilirubin,Total 0.5 mg/dL Normal 0.2-1.0 Total Protein 6.6 GM/DL Normal 6.4-8.2 Albumin 3.0 GM/DL Low 3.2-5.2 Albumin/Globulin Ratio 0.8 Normal Lipid Panel 11/03/2020 [facility] nter [phone] Triglycerides Level 121 mg/dL Normal <150 Cholesterol Level 126 mg/dL Normal <200 HDL Cholesterol 39 mg/dL Low >40 LDL Cholesterol 63 mg/dL Normal <100 Non-HDL-C 87 mg/dL Normal Cholesterol Risk Ratio 3.230 Normal <5 Laboratory test finding 11/03/2020 [facility] [phone] Magnesium Level 2.5 mg/dL High 1.8-2.4 4 1 Units are mL/min/1.73 m2 Chronic Kidney Disease Staging per NKF: Stage I & II GFR >=60 Normal to Mildly Decreased Stage III GFR 30-59 Moderately Decreased Stage IV GFR 15-29 Severely Decreased Stage V GFR <15 Very Little GFR Left ESRD GFR <15 on [employer] 2 note:<nlbl:demographic_[facility] ed> 3 Units are mL/min/1.73 m2 Chronic Kidney Disease Staging per NKF: Stage I & II GFR >=60 Normal to Mildly Decreased Stage III GFR 30-59 Moderately Decreased Stage IV GFR 15-29 Severely Decreased Stage V GFR <15 Very Little GFR Left ESRD GFR <15 on [employer] 4 note:<nlbl:demographic_[facility] ed> Procedures Date Code Description Status 02/09/2021 59042 Office/Outpatient Established Lo w MDM 20-29 Min Completed 11/09/2020 40569 Office/Outpatient Established Lo w MDM 20-29 Min Completed Medical Devices Description No Information Available Encounters Type Date Location Provider Dx Diagnosis Office Visit 02/09/2021 11:15a Main Office Catarina E Symenow, PA-C I50.3 2 Chronic diastolic (congestive) heart failure Office Visit 11/09/2020 11:15a Main Office Catarina Gilmore PA-C I50.3 2 Chronic diastolic (congestive) heart failure Assessments Date Code Description Provider 02/09/2021 I50.32 Chronic diastolic (congestive) h eart failure Catarina Gilmore PA-C 11/09/2020 I50.32 Chronic diastolic (congestive) h eart failure Catarina Gilmore PA-C Plan of Treatment Future Appointment(s):* 05/15/2021 12:30 pm - Catarina Gilmore PA-C at Main Office 02/09/2021 - Catarina Gilmore PA-C* I50.32 Chronic diastolic (congestive) heart failure* New Labs:* Basic Metabolic Profile, Scheduled: 05/11/21 * Recommendations:* Follow a 2 grams sodium diet and 50 ounces fluid restriction per 24 hour and do daily weights. Call the office for weight gain of 3 lbs or more. * All * Follow up:* 3 month follow up. Functional Status Functional Condition Comment Date Status Independent with all ADL's Activ e Mental Status Description No Information Available Referrals Description No Information Available
--- OUTSIDE RECORDS SUMMARY | 2021-03-01 03:16 | CCD ---
Author Author [facility] Organization [facility] Address Unknown Phone Unavailable Care Team Providers Care Bryologist Name Role Phone Catarina Alicia Unavailable PROBLEMS Type Condition ICD9-CM Code PWA06-PP Code Onset Dates Condition S tatus W/U Status Risk SNOMED Code Notes Problem Vitamin B12 deficiency anemia, unspecified D51.9 Active confirmed 47717840 Problem Type 2 diabetes mellitus with diabetic nephropathy E11.21 Active confirmed 634587253 Problem Obstructive sleep apnea (adult) (pediatric) G47.33 Active confirmed 13105629 Problem Essential (primary) hypertension I10 Active conf irmed 41327624 Problem Personal history of malignant neoplasm of prostate Z85.46 Active confirmed 885394014 Problem Mixed hyperlipidemia E78.2 Active confirmed 044987738 Problem Encounter for therapeutic drug level monitoring Z5 1.81 Active confirmed 094845877 Problem prison (current) use of insulin Z79.4 Activ e confirmed 048576186 Problem Paroxysmal atrial fibrillation I48.0 Active confir med 297363806 Problem 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.43 Active confirmed 30067070 Problem Allergic rhinitis, unspecifi ed allergic rhinitis trigger, unspecified rhinitis seasonality J30.9 Active confirmed 53313085 Problem prison (current) use of anticoagulants Z79.01 Active confirmed 987659018 Problem Gout, unspecified M10.9 Active confirmed 90 918812 Problem Malignant neoplasm of prostate C61 Active confir med 667487719 Problem Spinal stenosis, lumbosacral region M48.07 Acti ve confirmed 42735300 Problem Vitamin D deficiency, unspecified E55.9 Active con firmed 28462864 Problem Chronic diastolic heart failure I50.32 Active confi rmed 403365190 Problem Morbid (severe) obesity due to excess calories E66 .01 Active confirmed 61815137029800 Problem Body mass index (BMI) of 50-59.9 in adult Z68.43 Active confirmed 792685075 Problem Mild aortic stenosis I35.0 Active confirmed 21926315 ALLERGIES Allergen (clinical drug ingredient) Drug/Non Drug Allergy do cumented on EMR Reaction Allergy Type Onset Date Status Jardiance ABBI Non Drug Allergy Active omeprazole Prilosec([facility] Code:[address]-10) Gyncomastia Drug Allergy Active ENCOUNTERS from 1945 to 2021-01-20 Encounter Location Date Provider Diagnosis [facility] [address] [facility] [phone] [place] [address] Jan, Catarina Alicia Gout, unspecified M10.9 IMMUNIZATIONS Vaccine Route Administration Date Status Influenza [...] Education Language: Question Answer Notes Languages spoken: Qatari Mandaeism: Question Answer Notes Mandaeism 33 None Drug and Alcohol Question Answer [...] Notes Start Da te End Date Status Basaglar KwikPen 100 UNIT/ML INJECT 30 UNITS SUBCUTANE OUSLY EVERY MORNING AND 20 UNITS AT BEDTIME for 90 Active PreserVision AREDS - as directed Orally BID Active Lancets - dx e11.9 as directed QID September, Active Fish Oil 1200 MG 2capsules Orally twice a day for 90 days Active Betamethasone Valerate 0.1 % 1 application Externally Once a day for 7 day(s) Dec, Active Fluocinolone Acetonide 0.01 % 1 application Externally Twice a day topically twice a week /,satJul, Active Furosemide 40 MG 3 tablets Orally BID for 90 days Active Nyamyc 973788 UNIT/GM APPLY TO THE AFFECTED AREA(S ) of groin SKIN folds topically TWICE DAILY for 15 Act isaiah FiberCon 625 MG 2 tablets as needed Orally bid on discharge 07/18/20 Jul, Active NovoLOG FlexPen 100 UNIT/ML as directed Subcutaneous w ith meals three times a day per sliding scale not to exceed 42 units in 24 hours Oct, Active Lyrica 100 MG 1 capsule Orally BID for 90 day(s) Active Blood Glucose Test - as directed Dx E11.9 Test strips, QID for 62 Active Calcitriol 0.25 MCG 1 capsule Orally Saturday-Dec, Active Glucagon Emergency 1 MG as directed Injection Daily as neede d for hypoglycemia Active Bactrim DS 800-160 MG 1 tablet Orally as directed- 1 hour prior to cystoscopy Nov, Active Fluocinolone Acetonide 0.025 % apply topically to the right ear 2 times a day as needed as directed Externally once daily, up to twice a week. for 14 Active Mucinex 600 MG 1 tablet as needed Orally every 12 hrs 06 M 2020 Active Lansoprazole 30 MG 1 capsule Orally Once a day Active Allopurinol 300 MG take 1 tablet by mouth once daily once a day orally 90 days Orally Once a day for 90 day(s) Active Flonase 50 MCG/ACT 1 spray in each nostril Nasally Once a day as needed Jan, Active Cyanocobalamin 100 MCG as directed Orally on [facility] discharge 07/18/20 0 Jul, Active Embrace Blood Glucose Test dx code 250.02 1 stip In Vitro four time s a day Active Mucinex 600 MG 1 tablet as needed Orally every 12 hrs Active PC Unifine Pentips 31G X 6 MM as directed dx: e11.21 _ Daily May, Not-Taking Atorvastatin Calcium 20 MG 1 tablet Orally Once a day Active Losartan Potassium 100 MG Take 1 tablet By Mouth once a day Orally Once a day for 90 days Active Coumadin 5 MG 1/2 tab saturday and , 5mg row Orally Once a day for 90 days DIRECTED Active Ergocalciferol 1.25 MG (70170 UT) 1 capsule Orally once a we ek for 90 days weekly FridaysJul, Active Slow-Mag 535 (64 Mg) MG 1 tablet Orally Once a day Active Verapamil HCl ER 120 MG Take 1 tablet By Mouth once a day Orally On a day Active PROCEDURES No Information RESULTS No Results REASON FOR VISIT allopurinal MEDICAL (GENERAL) HISTORY Type Description Date Medical [...] Notes Treatment Notes Treatm ent Clinical Notes Jan, Gout, unspecified (ICD-10 - M10.9) PLAN OF TREATMENT Medication Medication Name Sig Start Date Stop Date Allopurinol 300 MG take 1 tablet by mouth once daily once a day orally 90 days Orally Once a day for 90 day(s) Next Appt Details Provider Name:Catarina Alicia, 2021-01-23 01:30:00 PM, [address] [place], [place] [id number], [place], [address], Provider Name:Melissa Alvarez, 2021-05-13 9 02:00:00 PM, [address] [place] [address] , [place], [address], Insurance Providers Payer Name Payer Address Payer Phone Insured Name Patient Relati onship to Insured Coverage Start Date Coverage End Date [employer] [facility] [address] [address] [facility] [phone] KOLTON KAMINSKI
--- OUTSIDE RECORDS SUMMARY | 2021-03-01 03:16 | CCD ---
Author Author [facility] Organization [facility] Address Unknown Phone Unavailable Care Team Providers Care Land Surveying Survey Worker Name Role Phone Yuliana Martinez Unavailable PROBLEMS Type Condition ICD9-CM Code DQU61-DB Code Onset Dates Condition S tatus W/U Status Risk SNOMED Code Notes Problem Vitamin B12 deficiency anemia, unspecified D51.9 Active confirmed 69870124 Problem Type 2 diabetes mellitus with diabetic nephropathy E11.21 Active confirmed 953659698 Problem Obstructive sleep apnea (adult) (pediatric) G47.33 Active confirmed 49469316 Problem Essential (primary) hypertension I10 Active conf irmed 82015792 Problem Personal history of malignant neoplasm of prostate Z85.46 Active confirmed 133109851 Problem Mixed hyperlipidemia E78.2 Active confirmed 835616898 Problem Encounter for therapeutic drug level monitoring Z5 1.81 Active confirmed 383325751 Problem stiff straw hat washer (current) use of insulin Z79.4 Activ e confirmed 622385195 Problem Paroxysmal atrial fibrillation I48.0 Active confir med 635157625 Problem 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.43 Active confirmed 97254130 Problem Allergic rhinitis, unspecifi ed allergic rhinitis trigger, unspecified rhinitis seasonality J30.9 Active confirmed 35250185 Problem shelter (current) use of anticoagulants Z79.01 Active confirmed 551025048 Problem Gout, unspecified M10.9 Active confirmed 90 695964 Problem Malignant neoplasm of prostate C61 Active confir med 660078784 Problem Spinal stenosis, lumbosacral region M48.07 Acti ve confirmed 25999570 Problem Vitamin D deficiency, unspecified E55.9 Active con firmed 47517598 Problem Chronic diastolic heart failure I50.32 Active confi rmed 110404219 Problem Morbid (severe) obesity due to excess calories E66 .01 Active confirmed 34388306719937 Problem Body mass index (BMI) of 50-59.9 in adult Z68.43 Active confirmed 558661951 Problem Mild aortic stenosis I35.0 Active confirmed 15251011 ALLERGIES Allergen (clinical drug ingredient) Drug/Non Drug Allergy do cumented on EMR Reaction Allergy Type Onset Date Status Jardiance ABBI Non Drug Allergy Active omeprazole Prilosec([facility] Code:[address]-98) Gyncomastia Drug Allergy Active ENCOUNTERS from 1945 to 2021-01-05 Encounter Location Date Provider Diagnosis [place] [id number] [facility] [phone] [place] [address] Dec, Yuliana [place] Encounter for therapeutic dr cook level monitoring Z51.81 ; Chronic diastolic heart failure I50.32 and Stage 3b chronic kidney disease N18.32 IMMUNIZATIONS Vaccine Route Administration Date Status Influenza [...] Education Language: Question Answer Notes Languages spoken: [place] Islander Confucianist: Question Answer Notes Confucianist 33 None Drug and Alcohol Question Answer Notes Total Score: 0 Interpretation: No problems reported BMI Care Goal Follow-Up Question Answer Notes Above Normal BMI Follow-Up Giving encouragement to exercise Tobacco Use: Question Answer Notes Are you a: former smoker How long has it been since you last smoked? > 10 years REASON FOR REFERRAL No Information VITAL SIGNS Weight 338 lbs Dec, Weight-kg 153.31 kg Dec, Height 67 in Dec, BMI 52.93 kg/m2 Dec, Heart Rate 78 /min Dec, Respiratory Rate 20 /min Dec, Temperature 96.6 degrees Fahrenheit Dec, Oximetry 98 Dec, Blood pressure systolic 140 mm Hg Dec, Blood pressure diastolic 70 mm Hg Dec, MEDICATIONS Medication SIG (Take, Route, Frequency, Duration) Notes Start Da te End Date Status Coumadin 5 MG 1/2 tab saturday and , 5mg row Orally Once a day for 90 days DIRECTED Active PreserVision AREDS - as directed Orally BID Active Furosemide 40 MG 3 tablets Orally BID for 90 days Active Ergocalciferol 1.25 MG (44786 UT) 1 capsule Orally once a we ek for 90 days weekly FridaysJul, Active Lansoprazole 30 MG 1 capsule Orally Once a day Active Bactrim DS 800-160 MG 1 tablet Orally as directed- 1 hour prior to cystoscopy Nov, Active Verapamil HCl ER 120 MG Take 1 tablet By Mouth once a day Orally On a day Active Blood Glucose Test - as directed Dx E11.9 Test strips, QID for 62 Active Losartan Potassium 100 MG Take 1 tablet By Mouth once a day Orally Once a day for 90 days Active Slow-Mag 535 (64 Mg) MG 1 tablet Orally Once a day Active FiberCon 625 MG 2 tablets as needed Orally bid on discharge 07/18/20 Jul, Active Allopurinol 300 MG take 1 tablet by mouth once daily once a day orally 90 days Orally Once a day Active Basaglar KwikPen 100 UNIT/ML as directed Subcutaneous 30 uni ts AM, 20 units HS Active Glucagon Emergency 1 MG as directed Injection Daily as neede d for hypoglycemia Active Betamethasone Valerate 0.1 % 1 application Externally Once a day for 7 day(s) Dec, Active Mucinex 600 MG 1 tablet as needed Orally every 12 hrs 06 M , 2020 Active Embrace Blood Glucose Test dx code 250.02 1 stip In Vitro four time s a day Active Atorvastatin Calcium 20 MG 1 tablet Orally Once a day Active NovoLOG FlexPen 100 UNIT/ML as directed Subcutaneous w ith meals three times a day per sliding scale not to exceed 42 units in 24 hours Oct, Active Fish Oil 1200 MG 2capsules Orally twice a day for 90 days Active Fluocinolone Acetonide 0.01 % 1 application Externally Twice a day topically twice a week /,satJul, Active Mucinex 600 MG 1 tablet as needed Orally every 12 hrs Active Lyrica 100 MG 1 capsule Orally BID for 90 day(s) Active Flonase 50 MCG/ACT 1 spray in each nostril Nasally Once a day as needed Jan, Active Calcitriol 0.25 MCG 1 capsule Orally Saturday-Dec, Active Lancets - dx e11.9 as directed QID September, Active Cyanocobalamin 100 MCG as directed Orally on [facility] discharge 07/18/20 0 6 Jul, 2020 Active Nyamyc 959644 UNIT/GM APPLY TO THE AFFECTED AREA(S ) of groin SKIN folds topically TWICE DAILY for 15 Act isaiah PC Unifine Pentips 31G X 6 MM as directed dx: e11.21 _ Daily May, Not-Taking Fluocinolone Acetonide 0.025 % apply topically to the right ear 2 times a day as needed as directed Externally once daily, up to twice a week. for 14 Active PROCEDURES No Information RESULTS Component Value Reference Range PT-INR Fingerstick Reviewed date:12/30/2020 11:40:09 Interpretation: Performing Lab:[facility] [place] [address] INR 2.2 Verified Patient's Name and yes Current Dose 1 2.5 tues/thurs Current Dose 2 5 mg ROW Tab Strength 5mg Indication for Anticoagulation a fib Recent Bleeding no Internal QC Acceptable (Y/N) yes Therapeutic Range 2-3 Education Given (Date / Initials) KIT New Dose 1 same New Dose 2 Weekly Total 30mg Next PT-INR 4 weeks - ah - REASON FOR VISIT 4 Weeks w/ KS or AH (Reason: INR) MEDICAL (GENERAL) HISTORY Type Description Date Medical History Atrial fibrillation-paroxysmal; wafarin monitored here Medical History Hyperlipidemia Medical History Type 2 diabetes - Dr. Elam Medical History CKD3 - Dr. W. Louise Medical History Hypertension Medical History Chronic diastolic [...] a risk" per pt Medical History Prostate ca--[place] 6/7 [facility] SS bx 01/22 - s/p [...] repeat 5 y ears 06/2014 Surgical History [facility] Dr. Elam Right knee Scope 01/21/18 Surgical [...] Notes Treatment Notes Treatm ent Clinical Notes Dec, Encounter for therapeutic drug level mon itoring (ICD-10 - Z51.81) Dec, Chronic diastolic heart failure (ICD-10 - I50.32 ) Dec, Stage 3b chronic kidney disease (ICD-10 - N18.32 ) PLAN OF TREATMENT Medication Medication Name Sig Start Date Stop Date Coumadin 5 MG 1/2 tab saturday and , 5mg row Orally Once a day for 90 days Furosemide 40 MG 3 tablets Orally BID for 90 days Next Appt Details 4 Weeks w/ Dr Alicia (or me) Reason:PT/ INR Provider Name:Corrine Grant, 9 08:30:00 AM, [address] , , [place], [address], Provider Name:Catarina Alicia, 2021-01-23 01:30:00 PM, [address] [place] [address] , [place], [address], Provider Name:Melissa Alvarez, 2021-05-13 9 02:00:00 PM, [address] [place] [address], , [place], [address], Follow Up:4 Weeks w/ Dr Alicia (or me)PT/INR Insurance Providers Payer Name Payer Address Payer Phone Insured Name Patient Relati onship to Insured Coverage Start Date Coverage End Date [facility] [address] [address] [facility] [address] KOLTON KAMINSKI self
--- OUTSIDE RECORDS SUMMARY | 2021-03-01 03:16 | CCD ---
Author Author [facility] Organization [facility] Address Unknown Phone Unavailable Care Team Providers Care Plant Maintenance Engineer Name Role Phone Corrine Grant Unavailable PROBLEMS Type Condition ICD9-CM Code ZVY66-TC Code Onset Dates Condition S tatus W/U Status Risk SNOMED Code Notes Problem Vitamin B12 deficiency anemia, unspecified D51.9 Active confirmed 67831104 Problem Type 2 diabetes mellitus with diabetic nephropathy E11.21 Active confirmed 814265639 Problem Obstructive sleep apnea (adult) (pediatric) G47.33 Active confirmed 64474028 Problem Essential (primary) hypertension I10 Active conf irmed 82234751 Problem Personal history of malignant neoplasm of prostate Z85.46 Active confirmed 569336637 Problem Mixed hyperlipidemia E78.2 Active confirmed 937970106 Problem Encounter for therapeutic drug level monitoring Z5 1.81 Active confirmed 776299676 Problem shelter (current) use of insulin Z79.4 Activ e confirmed 074628626 Problem Paroxysmal atrial fibrillation I48.0 Active confir med 128893876 Problem 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.43 Active confirmed 12672432 Problem Allergic rhinitis, unspecifi ed allergic rhinitis trigger, unspecified rhinitis seasonality J30.9 Active confirmed 06742303 Problem shelter (current) use of anticoagulants Z79.01 Active confirmed 468526064 Problem Gout, unspecified M10.9 Active confirmed 90 651211 Problem Malignant neoplasm of prostate C61 Active confir med 126974931 Problem Spinal stenosis, lumbosacral region M48.07 Acti ve confirmed 99553711 Problem Vitamin D deficiency, unspecified E55.9 Active con firmed 95720079 Problem Chronic diastolic heart failure I50.32 Active confi rmed 751598340 Problem Morbid (severe) obesity due to excess calories E66 .01 Active confirmed 99174204250663 Problem Body mass index (BMI) of 50-59.9 in adult Z68.43 Active confirmed 043436126 Problem Mild aortic stenosis I35.0 Active confirmed 42146076 ALLERGIES Allergen (clinical drug ingredient) Drug/Non Drug Allergy do cumented on EMR Reaction Allergy Type Onset Date Status Jardiance ABBI Non Drug Allergy Active omeprazole Prilosec([facility] Code:[address]-03) Gyncomastia Drug Allergy Active ENCOUNTERS from 1943 to 2021-01-23 Encounter Location Date Provider Diagnosis [facility] [address] [phone] [place] [address] Jan, Corrinedanny Grant Acquired phimosis of penis N47.1 IMMUNIZATIONS Vaccine Route Administration Date Status Influenza [...] Education Language: Question Answer Notes Languages spoken: Urdu Yarsani: Question Answer Notes Yarsani 33 None Drug and Alcohol Question Answer Notes Total Score: 0 Interpretation: No problems reported BMI Care Goal Follow-Up Question Answer Notes Above Normal BMI Follow-Up Giving encouragement to exercise Tobacco Use: Question Answer Notes Are you a: former smoker How long has it been since you last smoked? > 10 years REASON FOR REFERRAL No Information VITAL SIGNS Weight 340 lbs Jan, Weight-kg 154.22 kg Jan, Height 67 in Jan, BMI 53.25 kg/m2 Jan, Heart Rate 69 /min Jan, Respiratory Rate 19 /min Jan, Temperature 96.8 degrees Fahrenheit Jan, Oximetry 96 Jan, Blood pressure systolic 144 mm Hg Jan, Blood pressure diastolic 78 mm Hg Jan, MEDICATIONS Medication SIG (Take, Route, Frequency, Duration) Notes Start Da te End Date Status Fish Oil 1200 MG 2capsules Orally twice a day for 90 days Active NovoLOG FlexPen 100 UNIT/ML as directed Subcutaneous w ith meals three times a day per sliding scale not to exceed 42 units in 24 hours Oct, Active PreserVision AREDS - as directed Orally BID Active Flonase 50 MCG/ACT 1 spray in each nostril Nasally Once a day as needed Jan, Active Lancets - dx e11.9 as directed QID September, Active Glucagon Emergency 1 MG as directed Injection Daily as neede d for hypoglycemia Active Embrace Blood Glucose Test dx code 250.02 1 stip In Vitro four time s a day Active Calcitriol 0.25 MCG 1 capsule Orally Saturday-Dec, Active Lansoprazole 30 MG 1 capsule Orally Once a day Active Fluocinolone Acetonide 0.025 % apply topically to the right ear 2 times a day as needed as directed Externally once daily, up to twice a week. for 14 Active Atorvastatin Calcium 20 MG 1 tablet Orally Once a day Active Slow-Mag 535 (64 Mg) MG 1 tablet Orally Once a day Active Basaglar KwikPen 100 UNIT/ML INJECT 30 UNITS SUBCUTANE OUSLY EVERY MORNING AND 20 UNITS AT BEDTIME for 90 Active Furosemide 40 MG 3 tablets Orally BID for 90 days Active Blood Glucose Test - as directed Dx E11.9 Test strips, QID for 62 Active FiberCon 625 MG 2 tablets as needed Orally bid on discharge 07/18/20 Jul, Active Bactrim DS 800-160 MG 1 tablet Orally as directed- 1 hour prior to cystoscopy Nov, Active Nyamyc 969314 UNIT/GM APPLY TO THE AFFECTED AREA(S ) of groin SKIN folds topically TWICE DAILY for 15 Act isaiah Coumadin 5 MG 1/2 tab saturday and , 5mg row Orally Once a day for 90 days DIRECTED Active Mucinex 600 MG 1 tablet as needed Orally every 12 hrs Active Mucinex 600 MG 1 tablet as needed Orally every 12 hrs 06 M 2020 Active Verapamil HCl ER 120 MG Take 1 tablet By Mouth once a day Orally On a day Active Lyrica 100 MG 1 capsule Orally BID for 90 day(s) Active Fluocinolone Acetonide 0.01 % 1 application Externally Twice a day topically twice a week /,sun Jul, Active Betamethasone Valerate 0.1 % 1 application Externally Once a day for 7 day(s) Dec, Active Ergocalciferol 1.25 MG (73330 UT) 1 capsule Orally once a we ek for 90 days weekly FridaysJul, Active Cyanocobalamin 100 MCG as directed Orally on [facility] discharge 07/18/20 0 Jul, Active Losartan [...] Information RESULTS No Results REASON FOR VISIT 1 mo f/u dorsal slit MEDICAL (GENERAL) HISTORY Type Description Date Medical [...] T2 n0 mx; needs annual PSA in Dec Medical History ECHO: 01/09/18: LVEF 70%. Gra [...] repeat 5 y ears 06/2014 Surgical History [facility] Dr. Elam Right knee Scope 01/21/18 Surgical [...] Treatment Notes Treatm ent Clinical Notes Jan, Acquired phimosis of penis (ICD-10 - N47.1) PLAN OF TREATMENT Next Appt Details Provider Name:Catarinafloyd Alciia, 2021-03-01 02:15:00 PM, [address] [place] [address], , [place], [address], Provider Name:Melissa Alvarez, 2021-05-13 9 02:00:00 PM, [address] [facility], , [place], [address], Insurance Providers Payer Name Payer Address Payer Phone Insured Name Patient Relati onship to Insured Coverage Start Date Coverage End Date [facility] [address] [address] [facility] [address] KOLTON KAMINSKI self
--- OUTSIDE RECORDS SUMMARY | 2021-03-01 03:16 | CCD | Continuity of Care Document ---
Author Author Gagandeep GILMORE-C Organization Unknown Address [address] [place] [address], [facility] [place] [address] Phone [phone] Care Team Providers Care Overedge Machine Operator Name Role Phone Estefany Major RN ANP AUTM [phone] Parish Turner MD AUTM [phone] Brigid Gil MD AUTM [phone] Taya Elam MD AUTM [phone] Catarina Alicia MD AUTM [phone] Marii Patrick AUTM [phone] Problems Active Problems Provider Date Chronic diastolic [...] Indications Ordering Provide r Date Ergocalciferol 1.25mg (47216 Ut) C apsules 1 by mouth once a day Unknown 11/08/2020 Cyanocobalamin Crystals 1 by mouth daily Unknown 11/08/2020 Breo Ellipta 100-25mcg/Inh Aerosol 1 puff every day 60units R06.02 Estefany aMjor, RN ANP 10/12/2020 Vitamin B-12 100mcg Tablets [...] Gagandeep Mendez MD 12/03/2017 Vitamin D (Ergocalciferol) 89085Lygo Capsules 1 by mouth every weekly Georgie [...] H/L Range Note Basic Metabolic Profile 02/02/2021 [facility] [phone] Glucose, Fasting 100 mg/dL Normal 70-100 Blood [...] mg/dL Low 8.8-10.2 Laboratory test finding 02/02/2021 [facility] [phone] Magnesium Level 2.3 mg/dL Normal 1.8-2.4 2 [...] Magnesium Level 2.10 Comprehensive Metabolic Profil 11/03/2020 [facility] [phone] Glucose, Fasting 123 mg/dL High 70-100 Blood [...] Albumin/Globulin Ratio 0.8 Normal Lipid Panel 11/03/2020 [facility] nter [phone] Triglycerides Level 121 mg/dL Normal <150 Cholesterol Level 126 mg/dL Normal <200 HDL Cholesterol 39 mg/dL Low >40 LDL Cholesterol 63 mg/dL Normal <100 Non-HDL-C 87 mg/dL Normal Cholesterol Risk Ratio 3.230 Normal <5 Laboratory test finding 11/03/2020 [facility] [phone] Magnesium Level 2.5 mg/dL High 1.8-2.4 4 1 Units are mL/min/1.73 m2 Chronic Kidney Disease Staging per NKF: Stage I & II GFR >=60 Normal to Mildly Decreased Stage III GFR 30-59 Moderately Decreased Stage IV GFR 15-29 Severely Decreased Stage V GFR <15 Very Little GFR Left ESRD GFR <15 on CLAMP REMOVER 2 note:<nlbl:demographic_[facility] ed> 3 Units are mL/min/1.73 m2 Chronic Kidney Disease Staging per NKF: Stage I & II GFR >=60 Normal to Mildly Decreased Stage III GFR 30-59 Moderately Decreased Stage IV GFR 15-29 Severely Decreased Stage V GFR <15 Very Little GFR Left ESRD GFR <15 on CLAMP REMOVER 4 note:<nlbl:demographic_[facility] ed> Procedures Date Code Description Status 02/09/2021 49543 Office/Outpatient Established Lo w MDM 20-29 Min Completed 11/09/2020 62253 Office/Outpatient Established Lo w MDM 20-29 Min [...]
--- OUTSIDE RECORDS SUMMARY | 2021-03-01 03:16 | CCD | Continuity of Care Document ---
Author Author Gagandeep GILMORE-C Organization Unknown Address [address] [place] [address], [facility] [place] [address] Phone [phone] Care Team Providers Care Program Development Manager Name Role Phone Estefany Major RN ANP AUTM [phone] Parish Turner MD AUTM [phone] Brigid Gil MD AUTM [phone] Taya Elam MD AUTM [phone] Catarina Alicia MD AUTM [phone] Marii Patrick AUTM [phone] Problems Active Problems Provider Date Chronic diastolic [...] Aortic valve stenosis with insufficiency BRETT Castillo Ruiz Onset: 07/16/2019 Dyspnea Onset: 07/13/2020 Essential hypertension [...] Back Pain Exercise Limitations Shortness Of Breath Allergies and adverse reactions Description No Known Drug Allergies Medications Active Medications SIG Qnty Indications Ordering Provide r Date Ergocalciferol 1.25mg (12813 Ut) C apsules 1 by mouth once [...] Gagandeep Mendez MD 12/03/2017 Vitamin D (Ergocalciferol) 32821Btyo Capsules 1 by mouth every weekly Georgie [...] H/L Range Note Basic Metabolic Profile 02/02/2021 [facility] [phone] Glucose, Fasting 100 mg/dL Normal 70-100 Blood [...] mg/dL Low 8.8-10.2 Laboratory test finding 02/02/2021 [facility] [phone] Magnesium Level 2.3 mg/dL Normal 1.8-2.4 2 [...] Magnesium Level 2.10 Comprehensive Metabolic Profil 11/03/2020 [facility] [phone] Glucose, Fasting 123 mg/dL High 70-100 Blood [...] Albumin/Globulin Ratio 0.8 Normal Lipid Panel 11/03/2020 [facility] nter [phone] Triglycerides Level 121 mg/dL Normal <150 Cholesterol Level 126 mg/dL Normal <200 HDL Cholesterol 39 mg/dL Low >40 LDL Cholesterol 63 mg/dL Normal <100 Non-HDL-C 87 mg/dL Normal Cholesterol Risk Ratio 3.230 Normal <5 Laboratory test finding 11/03/2020 [facility] [phone] Magnesium Level 2.5 mg/dL High 1.8-2.4 4 1 Units are mL/min/1.73 m2 Chronic Kidney Disease Staging per NKF: Stage I & II GFR >=60 Normal to Mildly Decreased Stage III GFR 30-59 Moderately Decreased Stage IV GFR 15-29 Severely Decreased Stage V GFR <15 Very Little GFR Left ESRD GFR <15 on CHIEF OF SERVICE 2 note:<nlbl:demographic_[facility] ed> 3 Units are mL/min/1.73 m2 Chronic Kidney Disease Staging per NKF: Stage I & II GFR >=60 Normal to Mildly Decreased Stage III GFR 30-59 Moderately Decreased Stage IV GFR 15-29 Severely Decreased Stage V GFR <15 Very Little GFR Left ESRD GFR <15 on CHIEF OF SERVICE 4 note:<nlbl:demographic_[facility] ed> Procedures Date Code Description Status 02/09/2021 56507 Office/Outpatient Established Lo w MDM 20-29 Min Completed 11/09/2020 45947 Office/Outpatient Established Lo w MDM 20-29 Min Completed Medical Devices Description No Information Available Encounters Type Date Location Provider Dx Diagnosis Office Visit 02/09/2021 11:15a Main Office Catarina Gilmore PA-C I50.3 [...]
--- OUTSIDE RECORDS SUMMARY | 2021-03-01 03:16 | CCD ---
Author Author [facility] Organization [facility] Address Unknown Phone Unavailable Care Team Providers Care Stand Up Comedian Name Role Phone Catarina Alicia Unavailable PROBLEMS Type Condition ICD9-CM Code [id number] Code Onset Dates Condition S tatus W/U Status Risk SNOMED Code Notes Problem Vitamin B12 deficiency anemia, unspecified D51.9 Active confirmed 02842068 Problem Type 2 diabetes mellitus with diabetic nephropathy E11.21 Active confirmed 724630956 Problem roasterman (current) use of insulin Z79.4 Activ e confirmed 824289178 Problem Personal history of malignant neoplasm of prostate Z85.46 Active confirmed 580105496 Problem Obstructive sleep apnea (adult) (pediatric) G47.33 Active confirmed 16656218 Problem Essential (primary) hypertension I10 Active conf irmed 08095581 Problem Encounter for therapeutic drug level monitoring Z5 1.81 Active confirmed 682624369 Problem Mixed hyperlipidemia E78.2 Active confirmed 565717335 Problem Paroxysmal atrial fibrillation I48.0 Active confir med 741574492 Problem 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.43 Active confirmed 20485500 Problem Allergic rhinitis, unspecifi ed allergic rhinitis trigger, unspecified rhinitis seasonality J30.9 Active confirmed 39069169 Problem alf (current) use of anticoagulants Z79.01 Active confirmed 967120189 Problem Gout, unspecified M10.9 Active confirmed 90 961359 Problem Prostate cancer C61 Active confirmed 3990 96278 Problem Spinal stenosis, lumbosacral region M48.07 Acti ve confirmed 05251293 Problem Vitamin D deficiency, unspecified E55.9 Active con firmed 92063452 Problem Chronic diastolic heart failure I50.32 Active confi rmed 599986993 Problem Morbid (severe) obesity due to excess calories E66 .01 Active confirmed 47013032095245 Problem Body mass index (BMI) of 50-59.9 in adult Z68.43 Active confirmed 480665205 Problem Mild aortic stenosis I35.0 Active confirmed 66028982 ALLERGIES Allergen (clinical drug ingredient) Drug/Non Drug Allergy do cumented on EMR Reaction Allergy Type Onset Date Status Jardiance ABBI Non Drug Allergy Active omeprazole Prilosec([facility] Code:[address]-19) Gyncomastia Drug Allergy Active ENCOUNTERS from 1945 to 2020-12-07 Encounter Location Date Provider Diagnosis [place] [address] [facility] [phone] [place] [address] Nov, Catarina Alicia Peripheral autonomic neuropa thy due to diabetes mellitus E11.43 IMMUNIZATIONS Vaccine Route Administration Date Status Influenza [...] Education Language: Question Answer Notes Languages spoken: Bermud[place] Yazidism: Question Answer Notes Yazidism 33 None Drug and Alcohol Question Answer [...] Notes Start Da te End Date Status FiberCon 625 MG 2 tablets as needed Orally bid Jul, Active Verapamil HCl ER 120 MG Take 1 tablet By Mouth once a day Orally On ce a day Active Furosemide 40 MG 3 tablets Orally BID Active Atorvastatin Calcium 20 MG 1 tablet Orally Once a day Active Nystatin 807328 UNIT/GM 1 application Externally to groin skin folds Twice a day for 30 Days Nov, Active Blood Glucose Test - as directed Dx E11.9 Test strips, QID for 62 Active NovoLOG FlexPen 100 UNIT/ML as directed Subcutaneous w ith meals three times a day per sliding scale not to exceed 42 units in 24 hours Oct, Active Slow-Mag 535 (64 Mg) MG 1 tablet Orally Once a day Active Mucinex 600 MG 1 tablet as needed Orally every 12 hrs 06 , 2020 Active Basaglar KwikPen 100 UNIT/ML as directed Subcutaneous 30 uni ts AM, 20 units HS Active Flonase 50 MCG/ACT 1 spray in each nostril Nasally Once a day as needed Jan, Active Coumadin 5 MG 1/2 tab saturday and , 5mg row Orally Once a day for 90 days Active Lancets - dx e11.9 as directed QID September, Active Ergocalciferol 1.25 MG (93696 UT) 1 capsule Orally once a week f or 90 days Jul, Active Fluocinolone Acetonide 0.01 % 1 application Externally Twice a d ay Jul, Active Cyanocobalamin 100 MCG as directed Orally Jul, Active Calcitriol 0.25 MCG 1 capsule Orally Saturday-Dec, Active Embrace Blood Glucose Test dx code 250.02 1 stip In Vitro four time s a day Active PC Unifine Pentips 31G X 6 MM as directed dx: e11.21 _ Daily May, Not-Taking Glucagon Emergency 1 MG as directed Injection Daily as neede d for hypoglycemia Active Lansoprazole 30 MG 1 capsule Orally Once a day Active Bactrim DS 800-160 MG 1 tablet Orally as directed- 1 hour prior to cystoscopy Nov, Active Fluocinolone Acetonide 0.025 % apply topically to the right ear 2 times a day as needed as directed Externally once daily, up to twice a week. for 14 Active Fish Oil 1200 MG 2capsules Orally twice a day for 90 days Active Losartan Potassium 100 MG Take 1 tablet By Mouth once a day Orally Once a day for 90 days Active Allopurinol 300 MG take 1 tablet by mouth once daily once a day orally 90 days Orally Once a day Active PreserVision AREDS - as directed Orally BID Active Mucinex 600 MG 1 tablet as needed Orally every 12 hrs Active Lyrica 100 MG 1 capsule Orally BID for 90 day(s) Active PROCEDURES No Information [...] Dr. Tuttle 02/2019 Surgical History cysto 11/23/2020 Hospitalization History CHF 07/17/2010 Hospitalization History Surgical Related Goals Section No Information Health Concerns No Information MEDICAL EQUIPMENT No Information MENTAL STATUS No Information FUNCTIONAL STATUS No Information ASSESSMENTS Encounter Date Diagnosis Assessment Notes Treatment Notes Treatm ent Clinical Notes Nov, Peripheral autonomic neuropa thy due to diabetes mellitus (ICD-10 - E11.43) PLAN OF TREATMENT Medication Medication Name Sig Start Date Stop Date Nystatin 394389 UNIT/GM 1 application Externally to groin skin folds Twice a day for 30 Days Nov, Lyrica 100 MG 1 capsule Orally BID for 90 day(s) Coumadin 5 MG 1/2 tab saturday and , 5mg row Orally Once a day for 90 days Blood Glucose Test - as directed Dx E11.9 Test strips, QID for 6 2 Next Appt Details Provider Name:Dina Concepcion, 08:00:00 AM, [address], , [place], [address], Provider Name:Yuliana Martinez, 2020-12-30 11:1 5:00 AM, [address] [place] [address] , [place], [address], Provider Name:Melissa Alvarez, 2021-05-13 9 02:00:00 PM, [address] [place] [address], , [place], [address], Insurance Providers Payer Name Payer Address Payer Phone Insured Name Patient Relati onship to Insured Coverage Start Date Coverage End Date [facility] [address] [facility] [address] [phone] KOLTON KAMINSKI
--- OUTSIDE RECORDS SUMMARY | 2021-03-01 03:16 | CCD ---
Author Author [facility] Organization [facility] Address Unknown Phone Unavailable Care Team Providers Care Vehicle Technician Name Role Phone Catarina Alicia Unavailable PROBLEMS Type Condition ICD9-CM Code FKN61-BK Code Onset Dates Condition S tatus W/U Status Risk SNOMED Code Notes Problem Vitamin B12 deficiency anemia, unspecified D51.9 Active confirmed 62533883 Problem Type 2 diabetes mellitus with diabetic nephropathy E11.21 Active confirmed 246435778 Problem Obstructive sleep apnea (adult) (pediatric) G47.33 Active confirmed 37541001 Problem Essential (primary) hypertension I10 Active conf irmed 85047292 Problem Personal history of malignant neoplasm of prostate Z85.46 Active confirmed 126984712 Problem Mixed hyperlipidemia E78.2 Active confirmed 611482712 Problem Encounter for therapeutic drug level monitoring Z5 1.81 Active confirmed 034165382 Problem intermediate (current) use of insulin Z79.4 Activ e confirmed 206791860 Problem Paroxysmal atrial fibrillation I48.0 Active confir med 826079635 Problem 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.43 Active confirmed 73462661 Problem Allergic rhinitis, unspecifi ed allergic rhinitis trigger, unspecified rhinitis seasonality J30.9 Active confirmed 18830647 Problem intermediate (current) use of anticoagulants Z79.01 Active confirmed 029904454 Problem Gout, unspecified M10.9 Active confirmed 90 171293 Problem Malignant neoplasm of prostate C61 Active confir med 155647767 Problem Spinal stenosis, lumbosacral region M48.07 Acti ve confirmed 59110387 Problem Vitamin D deficiency, unspecified E55.9 Active con firmed 51700478 Problem Chronic diastolic heart failure I50.32 Active confi rmed 698219488 Problem Morbid (severe) obesity due to excess calories E66 .01 Active confirmed 92763998446089 Problem Body mass index (BMI) of 50-59.9 in adult Z68.43 Active confirmed 091904657 Problem Mild aortic stenosis I35.0 Active confirmed 76287119 ALLERGIES Allergen (clinical drug ingredient) Drug/Non Drug Allergy do cumented on EMR Reaction Allergy Type Onset Date Status Jardiance ABBI Non Drug Allergy Active omeprazole Prilosec([facility] Code:[address]-43) Gyncomastia Drug Allergy Active ENCOUNTERS from 1943 to 2021-01-25 Encounter Location Date Provider Diagnosis [facility] [address] [facility] [phone] [place] [address] 13 Jan, 2021 Catarina Alicia intermediate (current) use of a nticoagulants Z79.01 IMMUNIZATIONS Vaccine Route Administration Date Status Influenza (High Dose 65 & up) IM Intramuscular Mar 06, 2017 A dministered Influenza Pharmacy Given Unknown Mar 01, 2020 Adminis tered Influenza (High Dose 65 & up) IM Intramuscular Feb 16, 2016 A dministered Influenza (High Dose 65 & up) IM Intramuscular Feb 17, 2015 A dministered Influenza 6mo & up Fluzone Unknown August 04, 2015 Refus ed Influenza 6mo & up Fluzone Unknown July 22, 2014 Refus ed Influenza 18 yrs & older Flublok IM Intramuscular Feb 12, 2018 Administered Influenza 6mo & up Fluzone IM Intramuscular Feb 18, 2014 Admi nistered Influenza 18 yrs & older Flublok IM [...] Education Language: Question Answer Notes Languages spoken: [place] Sikhism: Question Answer Notes Sikhism 33 None Drug and Alcohol Question Answer Notes Total Score: 0 Interpretation: No problems reported BMI Care Goal Follow-Up Question Answer Notes Above Normal BMI Follow-Up Giving encouragement to exercise Tobacco Use: Question Answer Notes Are you a: former smoker How long has it been since you last smoked? > 10 years REASON FOR REFERRAL No Information VITAL SIGNS Weight 337 lbs Jan, Height 67 in Jan, BMI 52.78 kg/m2 Jan, Heart Rate 75 /min Jan, Respiratory Rate 18 /min Jan, Temperature 96.3 degrees Fahrenheit Jan, Oximetry 97 Jan, Blood pressure systolic 130 mm Hg Jan, Blood pressure diastolic 72 mm Hg Jan, MEDICATIONS Medication SIG (Take, [...] Daily as neede d for hypoglycemia [facility] code 250.02 1 [...] hour prior to cystoscopy Nov, Active Nyamyc 537190 UNIT/GM APPLY TO THE AFFECTED AREA(S ) [...] day topically twice a week /,satJul, Active Betamethasone Valerate 0.1 % 1 application Externally Once a day for 7 day(s) Dec, Active Ergocalciferol 1.25 MG (88927 UT) 1 capsule Orally once a we ek for 90 days weekly FridaysJul, Active Cyanocobalamin 100 MCG as directed Orally on [facility] discharge 07/18/20 0 Jul, Active Losartan [...] 90 day(s) Active PROCEDURES No Information RESULTS Component Value Reference Range PT-INR Fingerstick Reviewed date:01/23/2021 13:36:18 Interpretation: Performing Lab:[facility] [place], [place] [address] INR 2.2 Verified Patient's Name and yes Current Dose 1 2.5 / Current Dose 2 5mg row Tab Strength 5mg Indication for Anticoagulation afib Recent Bleeding no Internal QC Acceptable (Y/N) yes Therapeutic Range 2-3 Education Given (Date / Initials) New Dose 1 no change New Dose 2 Weekly Total Next PT-INR 4 weeks - kes - REASON FOR VISIT 4 Weeks w/ Dr Alicia (or mi) (Reason: PT/INR) MEDICAL (GENERAL) HISTORY Type Description Date Medical [...] repeat 5 y ears 06/2014 Surgical History [facility] Dr. 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 [employer] [facility] [address] [address] [facility] [address] [phone] KOLTON KAMINSKI
--- OUTSIDE RECORDS SUMMARY | 2021-03-01 03:16 | CCD | Continuity of Care Document ---
Author Author Gagandeep GILMORE-[facility] Organization Unknown Address [address] [place] [address], [facility] [place] [address] Phone [phone] Care Team Providers Care Assurance Assistant Name Role Phone Estefany Major RN ANP AUTM [phone] Parish Turner MD AUTM Brigid Gil MD AUTM [phone] Taya Elam MD AUTM [phone] Catarina Alicia MD AUTM [phone] Marii Patrick AUTM [phone] Problems Active Problems Provider Date Chronic diastolic [...] 20 years. Quit 1973 Smoking Status Reviewed: 11/09/20 Patient is a former smoker sm oked cigarettes up to 3ppd x 20 years. Quit 1973 Exercise Type/Frequency Does yardwork sporadical ly Exercise Limitations Back Pain Exercise Limitations Shortness Of Breath Allergies, Adverse Reactions, Alerts Description No Known Drug Allergies Medications Active Medications SIG Qnty Indications Ordering Provide r Date Ergocalciferol 1.25mg (32186 Ut) C apsules 1 by mouth once [...] Gagandeep Mendez MD 12/03/2017 Vitamin D (Ergocalciferol) 78244Nzkf Capsules 1 by mouth every weekly Georgie [...] twice every day I50.32 Brigid Gil MD Glucagon Emergency Kit For Low Blood Sug ar 1mg Kit Unknown Fiber 625mg Tablets daily Unknown Torsemide 100mg Tablets 1 tab by mouth every day Unknown Slow-Mag 71.5-119mg Tablets DR 1 tablet once a day Unknown Drisdol 1.25mg (18185 Ut) Capsules 1 capsule weekly Unknown Atorvastatin Calcium 20mg Tablets Take One Tablet By Mouth Once Daily Unknown Vitamin B-12 100mcg Tablets Take One Tablet By Mouth @8Am and Take One Tablet @10PM U nknown Immunizations Description No Information Available Vital Signs Date Vital Result Comment 11/09/2020 11:11am Weight 340.00 lb Home Weight 333lb Height 67 inches 5'7" BMI (Body Mass Index) 53.2 kg/m2 Heart Rate 64 /min Regular Respiratory Rate 16 /min BP Systolic Right Arm 136 mmHg sitting, large cuf f BP Diastolic Right Arm 66 mmHg sitting, large cu ff 08/08/2020 1:02pm Weight 336.00 lb Home Weight 330lb Height 67 inches 5'7" BMI (Body Mass Index) 52.6 kg/m2 Heart Rate 64 /min Respiratory Rate 16 /min BP Systolic Right Arm 136 mmHg sitting, large cuf f BP Diastolic Right Arm 74 mmHg sitting, large cu ff BP Systolic Left Arm 132 mmHg sitting BP Diastolic Left Arm 74 mmHg sitting Results Test Acquired Date Facility Test Result H/L Range Note Basic Metabolic Profile 02/02/2021 [facility] [phone] Glucose, Fasting 100 mg/dL Normal 70-100 Blood [...] mg/dL Low 8.8-10.2 Laboratory test finding 02/02/2021 [facility] [phone] Magnesium Level 2.3 mg/dL Normal 1.8-2.4 2 BMP 11/08/2020 [facility] (315)- - Calcium Ser/Plasma Mass/Vol 8.6 Sodium 137.4 Carbon Dioxide Ser/Plasm 30.3 Chloride Serum/Plasma 100 Potassium 4.42 Glucose 116 High 70-106 Blood Urea Nitrogen 47.5 High 7-18 Creatinine 1.7 High 0.55-1.3 G F R 39 CBC without Differential 11/08/2020 [facility] (315)- - White Blood Count 7.3 5.0-10.0 Red Blood Count 3.83 Low 4.70-6.10 Platelets 167 Low 172-450 Hemoglobin 11.9 Low 14.0-18.0 Hematocrit 38.0 Low 42.0-52.0 Laboratory test finding 11/08/2020 [facility] (315)- - Magnesium Level 2.10 Comprehensive Metabolic Profil 11/03/2020 [facility] [phone] Glucose, Fasting 123 mg/dL High 70-100 Blood [...] Albumin/Globulin Ratio 0.8 Normal Lipid Panel 11/03/2020 [facility] [phone] Triglycerides Level 121 mg/dL Normal <150 Cholesterol Level 126 mg/dL Normal <200 HDL Cholesterol 39 mg/dL Low >40 LDL Cholesterol 63 mg/dL Normal <100 Non-HDL-C 87 mg/dL Normal Cholesterol Risk Ratio 3.230 Normal <5 Laboratory test finding 11/03/2020 [facility] [phone] Magnesium Level 2.5 mg/dL High 1.8-2.4 4 1 Units are mL/min/1.73 m2 Chronic Kidney Disease Staging per NKF: Stage I & II GFR >=60 Normal to Mildly Decreased Stage III GFR 30-59 Moderately Decreased Stage IV GFR 15-29 Severely Decreased Stage V GFR <15 Very Little GFR Left ESRD GFR <15 on SANITOR 2 note:<nlbl:demographic_chang ed> 3 Units are mL/min/1.73 m2 Chronic Kidney Disease Staging per NKF: Stage I & II GFR >=60 Normal to Mildly Decreased Stage III GFR 30-59 Moderately Decreased Stage IV GFR 15-29 Severely Decreased Stage V GFR <15 Very Little GFR Left ESRD GFR <15 on SANITOR 4 note:<nlbl:demographic_chang ed> Procedures Date Code Description Status 11/09/2020 64094 Office/Outpatient Established Lo w MDM 20-29 Min Completed 08/08/2020 10357 Office/Outpatient Established Mo d MDM 30-39 Min Completed 08/08/2020 97266 ECG 12-Lead Completed Medical Devices Description No Information Available Encounters Type Date Location Provider Dx Diagnosis Office Visit 11/09/2020 11:15a Main Office QUINN Castillo-C I50.3 2 Chronic diastolic (congestive) heart failure Office Visit 08/08/2020 1:00p Main Office BRETT CastilloC I50.3 2 Chronic diastolic (congestive) heart failure I11.0 Hypertensive heart disease w ith heart failure I48.3 Typical atrial flutter R94.31 Abnormal electrocardiogram [ ECG] [EKG] I35.2 Nonrheumatic aortic (valve) stenosis with insufficiency I34.2 Nonrheumatic mitral (valve) stenosis I34.0 Nonrheumatic mitral (valve) insufficiency E78.2 Mixed hyperlipidemia G47.33 Obstructive sleep apnea (yossi lt) (pediatric) Z71.3 Dietary counseling and surve illance Assessments Date Code Description Provider 11/09/2020 I50.32 Chronic diastolic (congestive) h eart failure Catarina Gilmore PA-C 08/08/2020 I50.32 Chronic diastolic (congestive) h eart failure Catarina Gilmore PA-C 08/08/2020 I11.0 Hypertensive heart disease with heart failure Catarina Gilmore PA-C 08/08/2020 I48.3 Typical atrial flutter Catarina albright PA-C 08/08/2020 R94.31 Abnormal electrocardiogram [ECG] [EKG] Catarina Gilmore PA-C 08/08/2020 I35.2 Nonrheumatic aortic (valve) sten osis with insufficiency Catarina Gilmore PA-C 08/08/2020 I34.2 Nonrheumatic mitral (valve) sten osis Catarina Gilmore PA-C 08/08/2020 I34.0 Nonrheumatic mitral (valve) insu fficiency Catarina Gilmore PA-C 08/08/2020 E78.2 Mixed hyperlipidemia Catarina hauser PA-C 08/08/2020 G47.33 Obstructive sleep apnea (adult) (pediatric) Catarina Gilmore PA-C 08/08/2020 Z71.3 Dietary counseling and surveilla nce Catarina Gilmore PA-C Plan of Treatment Future Appointment(s):* 02/09/2021 11:15 am - Catarina Gilmore PA-C at Main Office 11/09/2020 - Catarina Gilmore PA-C* I50.32 Chronic diastolic (congestive) heart failure* Recommendations:* Follow a 2 grams sodium diet and 50 ounces fluid restriction per 24 hour and do daily weights. Call the office for weight gain of 3 lbs or more. * All * Follow up:* 3 month CV/CHF check. Functional Status Functional Condition Comment Date Status Independent with all ADL's Activ e Mental Status Description No Information Available Referrals Description No Information Available
--- OUTSIDE RECORDS SUMMARY | 2021-03-01 03:16 | CCD ---
Author Author [facility] Organization [facility] Address Unknown Phone Unavailable Care Team Providers Care Carpenter Bridge Name Role Phone Dina Concepcion Unavailable PROBLEMS Type Condition ICD9-CM Code LFU33-MR Code Onset Dates Condition S tatus W/U Status Risk SNOMED Code Notes Problem Vitamin B12 deficiency anemia, unspecified D51.9 Active confirmed 23552961 Problem Type 2 diabetes mellitus with diabetic nephropathy E11.21 Active confirmed 919493743 Problem Obstructive sleep apnea (adult) (pediatric) G47.33 Active confirmed 12848791 Problem Essential (primary) hypertension I10 Active conf irmed 15496442 Problem Personal history of malignant neoplasm of prostate Z85.46 Active confirmed 174640908 Problem Mixed hyperlipidemia E78.2 Active confirmed 936196447 Problem Encounter for therapeutic drug level monitoring Z5 1.81 Active confirmed 805020771 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 Z79.4 Activ e confirmed 122091972 Problem Paroxysmal atrial fibrillation I48.0 Active confir med 520575842 Problem 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.43 Active confirmed 31560477 Problem Allergic rhinitis, unspecifi ed allergic rhinitis trigger, unspecified rhinitis seasonality J30.9 Active confirmed 07235462 Problem USP (current) use of anticoagulants Z79.01 Active confirmed 290778965 Problem Gout, unspecified M10.9 Active confirmed 90 736456 Problem Malignant neoplasm of prostate C61 Active confir med 839039900 Problem Spinal stenosis, lumbosacral region M48.07 Acti ve confirmed 05361162 Problem Vitamin D deficiency, unspecified E55.9 Active con firmed 64183621 Problem Chronic diastolic heart failure I50.32 Active confi rmed 051291734 Problem Morbid (severe) obesity due to excess calories E66 .01 Active confirmed 20827468494543 Problem Body mass index (BMI) of 50-59.9 in adult Z68.43 Active confirmed 152219560 Problem Mild aortic stenosis I35.0 Active confirmed 23975576 ALLERGIES Allergen (clinical drug ingredient) Drug/Non Drug Allergy do cumented on EMR Reaction Allergy Type Onset Date Status Jardiance ABBI Non Drug Allergy Active omeprazole Prilosec([facility] Code:[address]-67) Gyncomastia Drug Allergy Active ENCOUNTERS from 1943 to 2020-12-23 Encounter Location Date Provider Diagnosis [facility] [address] [phone] [place] [address] Dec, Dina Concepcion Malignant neoplasm of prostate C61 ; Marion ss hematuria R31.0 and Acquired phimosis of penis N47.1 IMMUNIZATIONS Vaccine Route Administration Date Status Influenza Pharmacy Given Unknown Mar 01, 2020 [...] Education Language: Question Answer Notes Languages spoken: Georgian Presybeterian: Question Answer Notes Presybeterian 33 None Drug and Alcohol Question Answer Notes Total Score: 0 Interpretation: No problems reported BMI Care Goal Follow-Up Question Answer Notes Above Normal BMI Follow-Up Giving encouragement to exercise Tobacco Use: Question Answer Notes Are you a: former smoker How long has it been since you last smoked? > 10 years REASON FOR REFERRAL No Information VITAL SIGNS Weight 338 lbs Dec, Height 67 in Dec, BMI 52.93 kg/m2 Dec, Heart Rate 68 /min Dec, Respiratory Rate 20 /min Dec, Temperature 97.1 degrees Fahrenheit Dec, Oximetry 88 Dec, Blood pressure systolic 136 mm Hg Dec, Blood pressure diastolic 76 mm Hg Dec, MEDICATIONS Medication SIG (Take, Route, Frequency, Duration) Notes Start Da te End Date Status Nyamyc 732313 UNIT/GM APPLY TO THE AFFECTED AREA(S ) of groin SKIN folds topically TWICE DAILY for 15 Act isaiah PreserVision AREDS - as directed Orally BID Active Embrace Blood Glucose Test dx code 250.02 1 stip In Vitro four time s a day Active Ergocalciferol 1.25 MG (72834 UT) 1 capsule Orally once a we ek for 90 days weekly FridaysJul, Active PC Unifine Pentips 31G X 6 MM as directed dx: e11.21 _ Daily May, Not-Taking Fish Oil 1200 MG 2capsules Orally twice a day for 90 days Active Lancets - dx e11.9 as directed QID September, Active Blood Glucose Test - as directed Dx E11.9 Test strips, QID for 62 Active Allopurinol 300 MG take 1 tablet by mouth once daily once a day orally 90 days Orally Once a day Active Betamethasone Valerate 0.1 % 1 application Externally Once a day for 7 day(s) Dec, Active Lyrica 100 MG 1 capsule Orally BID for 90 day(s) Active Mucinex 600 MG 1 tablet as needed Orally every 12 hrs Active Mucinex 600 MG 1 tablet as needed Orally every 12 hrs 06 M , 2020 Active Atorvastatin Calcium 20 MG 1 tablet Orally Once a day Active FiberCon 625 MG 2 tablets as needed Orally bid on discharge 07/18/20 Jul, Active Basaglar KwikPen 100 UNIT/ML as directed Subcutaneous 30 uni ts AM, 20 units HS Active Cyanocobalamin 100 MCG as directed Orally on SMC discharge 07/18/20 0 Jul, Active Calcitriol 0.25 MCG 1 capsule Orally Saturday-Dec, Active Flonase 50 MCG/ACT 1 spray in each nostril Nasally Once a day as needed Jan, Active Fluocinolone Acetonide 0.025 % apply topically to the right ear 2 times a day as needed as directed Externally once daily, up to twice a week. for 14 Active Losartan Potassium 100 MG Take 1 tablet By Mouth once a day Orally Once a day for 90 days Active Bactrim DS 800-160 MG 1 tablet Orally as directed- 1 hour prior to cystoscopy Nov, Active Fluocinolone Acetonide 0.01 % 1 application Externally Twice a day topically twice a week /,sun Jul, Active NovoLOG FlexPen 100 UNIT/ML as directed Subcutaneous w ith meals three times a day per sliding scale not to exceed 42 units in 24 hours Oct, Active Glucagon Emergency 1 MG as directed Injection Daily as neede d for hypoglycemia Active Furosemide 40 MG 3 tablets Orally BID Active Slow-Mag 535 (64 Mg) MG 1 tablet Orally Once a day Active Verapamil HCl ER 120 MG Take 1 tablet By Mouth once a day Orally On a day Active Lansoprazole 30 MG 1 capsule Orally Once a day Active Coumadin 5 MG 1/2 tab saturday and , 5mg row Orally Once a day for 90 days DIRECTED Active PROCEDURES No Information RESULTS No Results REASON FOR VISIT dorsal slit MEDICAL (GENERAL) HISTORY Type Description [...] a risk" per pt Medical History Prostate ca--[place] 6/7 RICHARD SS bx 01/22 - s/p radical prostatectomy 2/13 T2 n0 mx; needs annual PSA in [...] repeat 5 y ears 06/2014 Surgical History [facility] Dr. Elam Right knee Scope 01/21/18 [...] Treatment Notes Treatm ent Clinical Notes Dec, Malignant neoplasm of prostate (ICD-10 - C61) Dec, Gross hematuria (ICD-10 - R31.0) Dec, Acquired phimosis of penis (ICD-10 - N47.1) PLAN OF TREATMENT Medication Medication Name Sig Start Date Stop Date Betamethasone Valerate 0.1 % 1 application Externally Once a day for 7 day(s) Dec, Treatment Notes Test Name Order Date Medication: 2% Lidocaine Dilutent 2020-12-16 Next Appt Details Provider Name:Yuliana Martinez, 2020-12-30 11:1 5:00 AM, [address] [facility], , [place], [address], Provider Name:Corrine Grant, 9 08:30:00 AM, [address], , [place], [address], Provider Name:Melissa Alvarez, 2021-05-13 9 02:00:00 PM, [address] [facility], , [place], [address], Insurance Providers Payer Name Payer Address Payer Phone Insured Name Patient Relati onship to Insured Coverage Start Date Coverage End Date [facility] [address] [address] [facility] [address] [phone] KOLTON KAMINSKI self
--- OUTSIDE RECORDS SUMMARY | 2021-03-01 03:16 | CCD | Continuity of Care Document ---
Author Author Gagandeep GILMORE-C Organization Unknown Address [address] [place] [address], [place] [address] Phone [phone] Care Team Providers Care Aluminum Polisher Name Role Phone Estefany Major RN ANP AUTM [phone] Parish Turner MD AUTM Brigid Gil MD AUTM [phone] Taya Elam MD AUTM [phone] Catarina Alicia MD AUTM [phone] Marii Patrick AUTM [phone] Problems Active Problems Provider Date Chronic diastolic [...] Indications Ordering Provide r Date Ergocalciferol 1.25mg (07740 Ut) C apsules 1 by mouth once [...] Gagandeep Mendez MD 12/03/2017 Vitamin D (Ergocalciferol) 18517Oqyf Capsules 1 by mouth every weekly Georgie [...] H/L Range Note Basic Metabolic Profile 02/02/2021 [facility] [phone] Glucose, Fasting 100 mg/dL Normal 70-100 Blood [...] mg/dL Low 8.8-10.2 Laboratory test finding 02/02/2021 [facility] [phone] Magnesium Level 2.3 mg/dL Normal 1.8-2.4 2 [...] Magnesium Level 2.10 Comprehensive Metabolic Profil 11/03/2020 [facility] [phone] Glucose, Fasting 123 mg/dL High 70-100 Blood [...] Albumin/Globulin Ratio 0.8 Normal Lipid Panel 11/03/2020 [facility] nter [phone] Triglycerides Level 121 mg/dL Normal <150 Cholesterol Level 126 mg/dL Normal <200 HDL Cholesterol 39 mg/dL Low >40 LDL Cholesterol 63 mg/dL Normal <100 Non-HDL-C 87 mg/dL Normal Cholesterol Risk Ratio 3.230 Normal <5 Laboratory test finding 11/03/2020 [facility] [phone] Magnesium Level 2.5 mg/dL High 1.8-2.4 4 1 Units are mL/min/1.73 m2 Chronic Kidney Disease Staging per NKF: Stage I & II GFR >=60 Normal to Mildly Decreased Stage III GFR 30-59 Moderately Decreased Stage IV GFR 15-29 Severely Decreased Stage V GFR <15 Very Little GFR Left ESRD GFR <15 on SCROLL SAW OPERATOR 2 note:<nlbl:demographic_[facility] ed> 3 Units are mL/min/1.73 m2 Chronic Kidney Disease Staging per NKF: Stage I & II GFR >=60 Normal to Mildly Decreased Stage III GFR 30-59 Moderately Decreased Stage IV GFR 15-29 Severely Decreased Stage V GFR <15 Very Little GFR Left ESRD GFR <15 on SCROLL SAW OPERATOR 4 note:<nlbl:demographic_[facility] ed> Procedures Date Code Description Status 02/09/2021 00145 Office/Outpatient Established Lo w MDM 20-29 Min Completed 11/09/2020 43678 Office/Outpatient Established Lo w MDM 20-29 Min Completed Medical Devices Description No Information Available Encounters Type Date Location Provider Dx Diagnosis Office Visit 02/09/2021 11:15a Main Office Catraina E Symenow, PA-C I50.3 2 Chronic diastolic [...]
--- OUTSIDE RECORDS SUMMARY | 2021-03-01 03:16 | CCD | Continuity of Care Document ---
Author Author Gagandeep GILMORE-C Organization Unknown Address [address] [place] [address], [facility] [place] [address] Phone [phone] Care Team Providers Care Manager Media Name Role Phone Estefany Major RN ANP AUTM [phone] Parish Turner MD AUTM Brigid Gil MD AUTM [phone] Taya Elam MD AUTM [phone] Catarina Alicia MD AUTM [phone] Marii Patrick AUTM [phone] Problems Active Problems Provider Date Chronic diastolic [...] Indications Ordering Provide r Date Ergocalciferol 1.25mg (22489 Ut) C apsules 1 by mouth once [...] Gagandeep Mendez MD 12/03/2017 Vitamin D (Ergocalciferol) 13848Qwtm Capsules 1 by mouth every weekly Georgie [...] H/L Range Note Basic Metabolic Profile 02/02/2021 [facility] [phone] Glucose, Fasting 100 mg/dL Normal 70-100 Blood [...] mg/dL Low 8.8-10.2 Laboratory test finding 02/02/2021 [facility] [phone] Magnesium Level 2.3 mg/dL Normal 1.8-2.4 2 [...] Magnesium Level 2.10 Comprehensive Metabolic Profil 11/03/2020 [facility] [phone] Glucose, Fasting 123 mg/dL High 70-100 Blood [...] Albumin/Globulin Ratio 0.8 Normal Lipid Panel 11/03/2020 [facility] nter [phone] Triglycerides Level 121 mg/dL Normal <150 Cholesterol Level 126 mg/dL Normal <200 HDL Cholesterol 39 mg/dL Low >40 LDL Cholesterol 63 mg/dL Normal <100 Non-HDL-C 87 mg/dL Normal Cholesterol Risk Ratio 3.230 Normal <5 Laboratory test finding 11/03/2020 [facility] [phone] Magnesium Level 2.5 mg/dL High 1.8-2.4 4 1 Units are mL/min/1.73 m2 Chronic Kidney Disease Staging per NKF: Stage I & II GFR >=60 Normal to Mildly Decreased Stage III GFR 30-59 Moderately Decreased Stage IV GFR 15-29 Severely Decreased Stage V GFR <15 Very Little GFR Left ESRD GFR <15 on ADMINISTRATIVE ASST 2 note:<nlbl:demographic_[facility] ed> 3 Units are mL/min/1.73 m2 Chronic Kidney Disease Staging per NKF: Stage I & II GFR >=60 Normal to Mildly Decreased Stage III GFR 30-59 Moderately Decreased Stage IV GFR 15-29 Severely Decreased Stage V GFR <15 Very Little GFR Left ESRD GFR <15 on ADMINISTRATIVE ASST 4 note:<nlbl:demographic_[facility] ed> Procedures Date Code Description Status 02/09/2021 58089 Office/Outpatient Established Lo w MDM 20-29 Min Completed 11/09/2020 94034 Office/Outpatient Established Lo w MDM 20-29 Min [...]
[2021-03-01 03:17] VITALS: BP 106/58
--- OUTSIDE RECORDS SUMMARY | 2021-03-01 03:17 | CCD ---
Author Author [facility] Organization 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.4 Activ e confirmed 486147671 Problem Personal history of malignant neoplasm of prostate Z85.46 Active confirmed 765675709 Problem Obstructive sleep apnea (adult) (pediatric) G47.33 Active confirmed 90352945 Problem Essential (primary) hypertension I10 Active conf irmed 60351167 Problem Encounter for therapeutic drug level monitoring Z5 1.81 Active confirmed 505592693 Problem Mixed hyperlipidemia E78.2 Active confirmed 483756750 Problem Paroxysmal atrial fibrillation I48.0 Active confir med 646438229 Problem 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.43 Active confirmed 16390493 Problem Allergic rhinitis, unspecifi ed allergic rhinitis trigger, unspecified rhinitis seasonality J30.9 Active confirmed 44077785 Problem FCI (current) use of anticoagulants Z79.01 Active confirmed 377727782 Problem Gout, unspecified M10.9 Active confirmed 90 083539 Problem Prostate cancer C61 Active confirmed 3990 57777 Problem Spinal stenosis, lumbosacral region M48.07 Acti ve confirmed 32729267 Problem Vitamin D deficiency, unspecified E55.9 Active con firmed 66262662 Problem Chronic diastolic heart failure I50.32 Active confi rmed 095076259 Problem Morbid (severe) obesity due to excess calories E66 .01 Active confirmed 57971965557318 Problem Body mass index (BMI) of 50-59.9 in adult Z68.43 Active confirmed 767228338 Problem Mild aortic stenosis I35.0 Active confirmed 57460623 ALLERGIES Allergen (clinical drug ingredient) Drug/Non Drug Allergy do cumented on EMR Reaction Allergy Type Onset Date Status Jardiance ABBI Non Drug Allergy Active omeprazole Prilosec([facility] Code:[address]-01) Gyncomastia Drug Allergy Active ENCOUNTERS from 1943 to 2020-12-07 Encounter Location Date Provider Diagnosis [place] [id number] [facility] [phone] [place] [address] Nov, Yuliana Minter Encounter for therapeutic dr joyce level monitoring Z51.81 ; FCI (current) use of anticoagulants Z79.01 ; Paroxysmal atrial fibrillation I48.0 and Candidiasis, intertriginous B37.2 IMMUNIZATIONS Vaccine Route Administration Date Status Influenza [...] Education Language: Question Answer Notes Languages spoken: Amharic Adventism: Question Answer Notes Adventism 33 None Drug and Alcohol Question Answer Notes Total Score: 0 Interpretation: No problems reported BMI Care Goal Follow-Up Question Answer Notes Above Normal BMI Follow-Up Giving encouragement to exercise Tobacco Use: Question Answer Notes Are you a: former smoker How long has it been since you last smoked? > 10 years REASON FOR REFERRAL No Information VITAL SIGNS Weight 342 lbs Nov, Height 67 in Nov, BMI 53.56 kg/m2 Nov, Heart Rate 77 /min Nov, Respiratory Rate 20 /min Nov, Temperature 97.3 degrees Fahrenheit Nov, Oximetry 94 Nov, Blood pressure systolic 130 mm Hg Nov, Blood pressure diastolic 70 mm Hg Nov, MEDICATIONS Medication SIG (Take, Route, Frequency, Duration) Notes Start Da te End Date Status Lyrica 100 MG 1 capsule Orally BID for 90 day(s) Active Verapamil HCl ER 120 MG Take 1 tablet By Mouth once a day Orally On a day Active FiberCon 625 MG 2 tablets as needed Orally bid Jul, Active Atorvastatin Calcium 20 MG 1 tablet Orally Once a day Active Nystatin 158094 UNIT/GM 1 application Externally to groin skin [...] every 12 hrs 06 M 2020 Active Basaglar KwikPen 100 UNIT/ML as [...] directed dx: e11.21 _ Daily May, Not-Taking Lancets - dx e11.9 as directed QID September, Active Bactrim DS 800-160 MG 1 tablet Orally as directed- 1 hour prior to cystoscopy Nov, Active Fluocinolone Acetonide 0.025 % apply topically to the right ear 2 times a day as needed as directed Externally once daily, up to twice a week. for 14 Active Calcitriol 0.25 MCG 1 capsule Orally Saturday-Dec, Active Fish Oil 1200 MG 2capsules Orally twice a day for 90 days Active Cyanocobalamin 100 MCG as directed Orally Jul, Active Glucagon Emergency 1 MG as directed Injection Daily as neede d for hypoglycemia Active Lansoprazole 30 MG 1 capsule Orally Once a day Active Embrace Blood Glucose Test dx code 250.02 1 stip In Vitro four time s a day Active Furosemide 40 MG 3 tablets Orally BID Active Ergocalciferol 1.25 MG (93839 UT) 1 capsule Orally once a week f or 90 days Jul, Active Fluocinolone Acetonide 0.01 % 1 application Externally Twice a d ay Jul, Active PreserVision AREDS - as directed Orally BID Active Losartan Potassium 100 MG Take 1 tablet By Mouth once a day Orally Once a day for 90 days Active Allopurinol 300 MG take 1 tablet by mouth once daily once a day orally 90 days Orally Once a day Active Mucinex 600 MG 1 tablet as needed Orally every 12 hrs Active PROCEDURES No Information RESULTS Component Value Reference Range PT-INR Fingerstick Reviewed date:12/02/2020 13:51:10 Interpretation: Performing Lab:[facility], ,[facility]01 INR 2.7 Verified Patient's Name and yes Current Dose 1 2.5 tues, thur Current Dose 2 5mg row Tab Strength 5mg Indication for Anticoagulation afib Recent Bleeding no Internal QC Acceptable (Y/N) yes Therapeutic Range 2-3 Education Given (Date / Initials) New Dose 1 same New Dose 2 Weekly Total 30mg Next PT-INR 4 weeks - - REASON FOR VISIT 2 Weeks (Reason: INR w/ [place])-per yuliana, PT/INR done MEDICAL (GENERAL) HISTORY Type Description Date Medical History Atrial fibrillation-paroxysmal; wafarin monitored here Medical History Hyperlipidemia Medical History Type 2 diabetes - Dr. Elam Medical History CKD3 - Dr. Ilya Gil Medical History Hypertension Medical History Chronic diastolic heart fail ure--echo 07/21, EF 75%, LA mm, mild ; echo 03/26: EF 65%, mild , LVH noted. 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 No obstructive componenet. Medical History B12 deficicency Medical History Central spinal canal stenosi s L/S spine L4-l5 MRI 03/21--saw Dr Chloe SANDERS, felt "too high a risk" per pt Medical History Prostate ca--[place] 6/7 RICHARD SS bx 01/22 - s/p [...] repeat 5 y ears 06/2014 Surgical History [facility] Dr. Elam Right knee Scope [...] Treatment Notes Treatm ent Clinical Notes Nov, Encounter for therapeutic drug level mon itoring (ICD-10 - Z51.81) Nov, intermediate project manager (current) use of anticoagulants (ICD-1 0 - Z79.01) Nov, Paroxysmal atrial fibrillation (ICD-10 - I48.0) Nov, Candidiasis, intertriginous (ICD-10 - B37.2) Advised and Educated on administration and side effects of meds prescribed and patient verbalized understanding of the same., supportive measures for symptom relief - keep clean, pat dry and apply powder, follow up if symptoms worsen or not improved with treatment PLAN OF TREATMENT Medication Medication Name Sig Start Date Stop Date Nystatin 946890 UNIT/GM 1 application Externally to groin skin folds Twice a day for 30 Days Nov, Lyrica 100 MG 1 capsule Orally BID for 90 day(s) Coumadin 5 MG 1/2 tab saturday and , 5mg row Orally Once a day for 90 days Blood Glucose Test - as directed Dx E11.9 Test strips, QID for 6 2 Treatment Notes Assessment Notes Clinical Notes Candidiasis, intertriginous Advised and Educated on administration and side effects of meds prescribed and patient verbalized understanding of the same., supportive measures for symptom relief - keep clean, pat dry and apply powder, follow up if symptoms worsen or not improved with treatment Next Appt Details 4 Weeks w/ KS or AH Reason:INR Provider Name:Dina Concepcion, 08:00:00 AM, [address] , , [place], [address], Provider Name:Yluiana Martinez, 2020-12-30 11:1 5:00 AM, [address] [place] [address] , [place], [address], Provider Name:Melissa Alvarez, 2021-05-13 9 02:00:00 PM, [address] [place] [address] , [place], [address], Follow Up:4 Weeks w/ KS or AHINR Insurance Providers Payer Name Payer Address Payer Phone Insured Name Patient Relati onship to Insured Coverage Start Date Coverage End Date [facility] [place] [facility] [address] [address] [facility] [id number] KOLTON KAMINSKI
--- OUTSIDE RECORDS SUMMARY | 2021-03-01 03:17 | CCD ---
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.4 Activ e confirmed 837060624 Problem Personal history of malignant neoplasm of prostate Z85.46 Active confirmed 292436374 Problem Obstructive sleep apnea (adult) (pediatric) G47.33 Active confirmed 71671310 Problem Essential (primary) hypertension I10 Active conf irmed 64095759 Problem Encounter for therapeutic drug level monitoring Z5 1.81 Active confirmed 795297567 Problem Mixed hyperlipidemia E78.2 Active confirmed 217533099 Problem Paroxysmal atrial fibrillation I48.0 Active confir med 966712642 Problem 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.43 Active confirmed 46450740 Problem Allergic rhinitis, unspecifi ed allergic rhinitis trigger, unspecified rhinitis seasonality J30.9 Active confirmed 89035070 Problem intermediate (current) use of anticoagulants Z79.01 Active confirmed 307216161 Problem Gout, unspecified M10.9 Active confirmed 90 070157 Problem Prostate cancer C61 Active confirmed 3990 66418 Problem Spinal stenosis, lumbosacral region M48.07 Acti ve confirmed 07603107 Problem Vitamin D deficiency, unspecified E55.9 Active con firmed 10821771 Problem Chronic diastolic heart failure I50.32 Active confi rmed 563472985 Problem Morbid (severe) obesity due to excess calories E66 .01 Active confirmed 36749344572475 Problem Body mass index (BMI) of 50-59.9 in adult Z68.43 Active confirmed 130531856 Problem Mild aortic stenosis I35.0 Active confirmed 26915100 ALLERGIES Allergen (clinical drug ingredient) Drug/Non Drug Allergy do cumented on EMR Reaction Allergy Type Onset Date Status Jardiance ABBI Non Drug Allergy Active omeprazole Prilosec([facility] Code:[address]-55) Gyncomastia Drug Allergy Active ENCOUNTERS from 1943 to 2020-11-30 Encounter Location Date Provider Diagnosis [place] [id number] [facility] [phone] [place] [address] Nov, Catarina Alicia Vitamin D deficiency, unspec ified E55.9 and Encounter for therapeutic drug level monitoring Z51.81 IMMUNIZATIONS Vaccine Route Administration Date Status Influenza [...] Education Language: Question Answer Notes Languages spoken: Singaporean Sabianism: Question Answer Notes Sabianism 33 None Drug and Alcohol Question Answer [...] Notes Start Da te End Date Status Lancets - dx e11.9 as directed QID September, Active Basaglar KwikPen 100 UNIT/ML as directed Subcutaneous 30 uni ts AM, 20 units HS Active Blood Glucose Test - as directed Dx E11.9 Test strips, QID for 9 0 days September, Active NovoLOG FlexPen 100 UNIT/ML as directed Subcutaneous w ith meals three times a day per sliding scale not to exceed 42 units in 24 hours Oct, Active Cyanocobalamin 100 MCG as directed Orally Jul, Active Calcitriol 0.25 MCG 1 capsule Orally Saturday-Dec, Active PC Unifine Pentips 31G X 6 MM as directed dx: e11.21 _ Daily May, Not-Taking Glucagon Emergency 1 MG as directed Injection Daily as neede d for hypoglycemia Active Atorvastatin Calcium 20 MG 1 tablet Orally Once a day Active Fluocinolone Acetonide 0.025 % apply topically to the right ear 2 times a day as needed as directed Externally once daily, up to twice a week. for 14 Active Lansoprazole 30 MG 1 capsule Orally Once a day Active Allopurinol 300 MG take 1 tablet by mouth once daily once a day orally 90 days Orally Once a day Active Mucinex 600 MG 1 tablet as needed Orally every 12 hrs Active Fluocinolone Acetonide 0.01 % 1 application Externally Twice a d ay Jul, Active Fish Oil 1200 MG 2capsules Orally twice a day for 90 days Active Mucinex 600 MG 1 tablet as needed Orally every 12 hrs 06 2020 Active Furosemide 40 MG 3 tablets Orally BID Active Embrace Blood Glucose Test dx code 250.02 1 stip In Vitro four time s a day Active Flonase 50 MCG/ACT 1 spray in each nostril Nasally Once a day as needed Jan, Active Lyrica 100 MG 1 capsule Orally BID A ctive FiberCon 625 MG 2 tablets as needed Orally bid Jul, Active Bactrim DS 800-160 MG 1 tablet Orally as directed- 1 hour prior to cystoscopy Nov, Active PreserVision AREDS - as directed Orally BID Active Coumadin 5 MG 1/2 tab saturday and , 5mg row Orally Once a day for 90 days Active Slow-Mag 535 (64 Mg) MG 1 tablet Orally Once a day Active Ergocalciferol 1.25 MG (97550 UT) 1 capsule Orally once a week f or 90 days Jul, Active Losartan Potassium 100 MG Take 1 tablet By Mouth once a day Orally Once a day for 90 days Active Verapamil HCl ER 120 MG Take 1 tablet By Mouth once a day Orally On a day Active PROCEDURES No Information RESULTS No Results REASON FOR VISIT refill- multiple MEDICAL (GENERAL) HISTORY Type Description Date Medical [...] a risk" per pt Medical History Prostate ca--[place] 6/7 RICHARD SS bx 01/22 - [...] Treatment Notes Treatm ent Clinical Notes Nov, Vitamin D deficiency, unspecified (ICD-10 - E55. 9) Nov, Encounter for therapeutic drug level mon itoring (ICD-10 - Z51.81) PLAN OF TREATMENT Medication Medication Name Sig Start Date Stop Date Ergocalciferol 1.25 MG (61062 UT) 1 capsule Orally once a we ek for 90 days Jul, Losartan Potassium 100 MG Take 1 tablet By Mouth once a day Orally Once a day for 90 days Coumadin 5 MG 1/2 tab saturday and , 5mg row Orally Once a day for 90 days Next Appt Details Provider Name:Yuliana Martinez, 2020-12-02 01:3 0:00 PM, [address] [place] [address] , [place], [address], Provider Name:Dina Concepcion, 08:00:00 AM, [address], , [place], [address], Provider Name:Melissa Alvarez, 2021-05-13 9 02:00:00 PM, [address] [facility], , [place], [address], Insurance Providers Payer Name Payer Address Payer Phone Insured Name Patient Relati onship to Insured Coverage Start Date Coverage End Date [facility] [employer] [facility] [address] [address] [facility] [address] [phone] KOLTON KAMINSKI
--- OUTSIDE RECORDS SUMMARY | 2021-03-01 03:17 | CCD ---
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 Z79.4 Activ e confirmed 255226421 Problem Personal history of malignant neoplasm of prostate Z85.46 Active confirmed 487926797 Problem Obstructive sleep apnea (adult) (pediatric) G47.33 Active confirmed 86414629 Problem Essential (primary) hypertension I10 Active conf irmed 13736258 Problem Encounter for therapeutic drug level monitoring Z5 1.81 Active confirmed 912011498 Problem Mixed hyperlipidemia E78.2 Active confirmed 700543018 Problem Paroxysmal atrial fibrillation I48.0 Active confir med 690734220 Problem 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.43 Active confirmed 13352133 Problem Allergic rhinitis, unspecifi ed allergic rhinitis trigger, unspecified rhinitis seasonality J30.9 Active confirmed 12099941 Problem residential (current) use of anticoagulants Z79.01 Active confirmed 483850905 Problem Gout, unspecified M10.9 Active confirmed 90 723114 Problem Prostate cancer C61 Active confirmed 3990 75040 Problem Spinal stenosis, lumbosacral region M48.07 Acti ve confirmed 22943186 Problem Vitamin D deficiency, unspecified E55.9 Active con firmed 79165889 Problem Chronic diastolic heart failure I50.32 Active confi rmed 816685239 Problem Morbid (severe) obesity due to excess calories E66 .01 Active confirmed 53751635927538 Problem Body mass index (BMI) of 50-59.9 in adult Z68.43 Active confirmed 142183785 Problem Mild aortic stenosis I35.0 Active confirmed 14329271 ALLERGIES Allergen (clinical drug ingredient) Drug/Non Drug Allergy do cumented on EMR Reaction Allergy Type Onset Date Status Jardiance ABBI Non Drug Allergy Active omeprazole Prilosec([facility] Code:[address]-40) Gyncomastia Drug Allergy Active ENCOUNTERS from 1945 to 2020-12-06 Encounter Location Date Provider Diagnosis [place] [address] [facility] [phone] [place] [address] Nov, Catarina Alicia Peripheral autonomic neuropa thy [...] Education Language: Question Answer Notes Languages spoken: Malagasy Jehovah'S Witness: Question Answer Notes Jehovah'S Witness 33 None Drug and Alcohol Question Answer [...] day Orally On ce a day Active FiberCon 625 MG 2 tablets as needed Orally bid Jul, Active Atorvastatin Calcium 20 MG 1 tablet Orally Once a day Active Nystatin 308536 UNIT/GM 1 application Externally to groin skin [...] 12 hrs 06 M , 2020 Active Basaglar KwikPen 100 UNIT/ML [...] tablets Orally BID Active Ergocalciferol 1.25 MG (82491 UT) 1 capsule Orally once a week [...] 12 hrs Active PROCEDURES No Information RESULTS No Results REASON FOR VISIT refill- lyrica MEDICAL (GENERAL) HISTORY Type Description Date Medical [...] a risk" per pt Medical History Prostate ca--[place] 6/7 RICHARD SS bx 01/22 - s/p [...] Name Sig Start Date Stop Date Nystatin 239959 UNIT/GM 1 application Externally to groin skin [...] Appt Details Provider Name:Dina Concepcion, 08:00:00 AM, [address], , [place], [address], Provider Name:Yuliana Martinez, 2020-12-30 11:1 5:00 AM, [address] [place] [address] , [place], [address], Provider Name:Melissa Alvarez, 2021-05-13 9 02:00:00 PM, [address] [place] [address] , [place], [address], Insurance Providers Payer Name Payer Address Payer Phone Insured Name Patient Relati onship to Insured Coverage Start Date Coverage End Date [facility] [employer] [facility] [id number] [facility] [phone] KOLTON KAMINSKI
--- OUTSIDE RECORDS SUMMARY | 2021-03-01 03:18 | CCD ---
Author Author [facility] Organization [facility] Address Unknown Phone Unavailable Care Team Providers Care Executive Assistant To General Counsel Name Role Phone Moriah, L Estefany PARACHUTE MANUFACTURING SUPERVISOR Unavailable Unavailable Moriah, L Estefany PARACHUTE MANUFACTURING SUPERVISOR Unavailable Unavailable Moriah, L Estefany PARACHUTE MANUFACTURING SUPERVISOR Unavailable Unavailable Moriah, L Estefany PARACHUTE MANUFACTURING SUPERVISOR Unavailable Unavailable Moriah, L Estefany PARACHUTE MANUFACTURING SUPERVISOR Unavailable Unavailable Moriah, L Estefany PARACHUTE MANUFACTURING SUPERVISOR Unavailable Unavailable Moriah, L Estefany PARACHUTE MANUFACTURING SUPERVISOR Unavailable Unavailable Moriah, L Estefany PARACHUTE MANUFACTURING SUPERVISOR Unavailable Unavailable Moriah, L Estefany PARACHUTE MANUFACTURING SUPERVISOR Unavailable Unavailable Mroiah, L Estefany PARACHUTE MANUFACTURING SUPERVISOR Unavailable Unavailable Moriah, L Estefany PARACHUTE MANUFACTURING SUPERVISOR Unavailable Unavailable Moriah, L Estefany PARACHUTE MANUFACTURING SUPERVISOR Unavailable Unavailable Moriah, L Estefany PARACHUTE MANUFACTURING SUPERVISOR Unavailable Unavailable Moriah, L Estefany PARACHUTE MANUFACTURING SUPERVISOR Unavailable Unavailable Moriah, L Estefany PARACHUTE MANUFACTURING SUPERVISOR Unavailable Unavailable Moriah, L Estefany PARACHUTE MANUFACTURING SUPERVISOR Unavailable Unavailable Moriah, L Estefany PARACHUTE MANUFACTURING SUPERVISOR Unavailable Unavailable Moriah, L Estefany PARACHUTE MANUFACTURING SUPERVISOR Unavailable Unavailable Moirah, L Estefany PARACHUTE MANUFACTURING SUPERVISOR Unavailable Unavailable Moriah, L Estefany PARACHUTE MANUFACTURING SUPERVISOR Unavailable Unavailable Moriah, L Estefany PARACHUTE MANUFACTURING SUPERVISOR Unavailable Unavailable Moriah, L Estefany PARACHUTE MANUFACTURING SUPERVISOR Unavailable Unavailable Moriah, L Estefany PARACHUTE MANUFACTURING SUPERVISOR Unavailable Unavailable Moriah, L Estefany PARACHUTE MANUFACTURING SUPERVISOR Unavailable Unavailable Moriah, L Estefany PARACHUTE MANUFACTURING SUPERVISOR Unavailable Unavailable Sil Pina Unavailable Unavailable Sil Pina Unavailable Unavailable Sil Pina Unavailable Unavailable Sil Pina Unavailable Unavailable Symenow, Sil Catarina PA Unavailable Unavailable Symenow, Sil Catarina PA Unavailable Unavailable Symenow, Sil Catarina PA Unavailable Unavailable Symenow, Sil Catarina PA Unavailable Unavailable Symenow, Sil Catarina PA Unavailable Unavailable Symenow, Sil Catarina PA Unavailable Unavailable Symenow, Sil Catarina PA Unavailable Unavailable Symenow, Sil Catarina PA Unavailable Unavailable Symenow, Sil Catarina PA Unavailable Unavailable Symenow, Sil Catarina PA Unavailable Unavailable Symenow, Sil Catarina PA Unavailable Unavailable Symenow, Sil Catarina PA Unavailable Unavailable Symenow, Sil Catarina PA Unavailable Unavailable Symenow, Sil Catarina PA Unavailable Unavailable Symenow, Sil Catarina PA Unavailable Unavailable Symenow, Sil Catarina PA Unavailable Unavailable Symenow, Sil Catarina PA Unavailable Unavailable Symenow, Sil Catarina PA Unavailable Unavailable Symenow, Sil Catarina PA Unavailable Unavailable Symenow, Sil Catarina PA Unavailable Unavailable Symenow, Sil Catarina PA Unavailable Unavailable Symenow, Sil Catarina PA Unavailable Unavailable Symenow, Sil Catarina PA Unavailable Unavailable Symenow, Sil Catarina PA Unavailable Unavailable Symenow, Sil Catarina PA Unavailable Unavailable Symenow, Sil Catarina PA Unavailable Unavailable Symenow, Sil Catarina PA Unavailable Unavailable Symenow, Sil Catarina PA Unavailable Unavailable Symenow, Sil Catarina PA Unavailable Unavailable Symenow, Sil Catarina PA Unavailable Unavailable Doremus, E Dionne PA Unavailable Unavailable Doremus, E Dionne PA Unavailable Unavailable Doremus, E Dionne PA Unavailable Unavailable Doremus, E Dionne PA Unavailable Unavailable Doremus, E Dionne PA Unavailable Unavailable Doremus, E Dionne PA Unavailable Unavailable Doremus, E Dionne PA Unavailable Unavailable Doremus, E Dionne PA Unavailable Unavailable Doremus, E Dionne PA Unavailable Unavailable Doremus, E Dionne PA Unavailable Unavailable Doremus, E Dionne PA Unavailable Unavailable Doremus, E Dionne PA Unavailable Unavailable Doremus, E Dionne PA Unavailable Unavailable Doremus, E Dionne PA Unavailable Unavailable Doremus, E Dionne PA Unavailable Unavailable Doremus, E Dionne PA Unavailable Unavailable Doremus, E Dionne PA Unavailable Unavailable Doremus, E Dionne PA Unavailable Unavailable Doremus, E Dionne PA Unavailable Unavailable TIRSO, B IRWIN PARACHUTE MANUFACTURING SUPERVISOR Unavailable Unavailable TIRSO, B IRWIN PARACHUTE MANUFACTURING SUPERVISOR Unavailable Unavailable TIRSO, B IRWIN PARACHUTE MANUFACTURING SUPERVISOR Unavailable Unavailable TIRSO, B IRWIN PARACHUTE MANUFACTURING SUPERVISOR Unavailable Unavailable TIRSO, B IRWIN PARACHUTE MANUFACTURING SUPERVISOR Unavailable Unavailable TIRSO, B IRWIN PARACHUTE MANUFACTURING SUPERVISOR Unavailable Unavailable TIRSO, B IRWIN PARACHUTE MANUFACTURING SUPERVISOR Unavailable Unavailable TIRSO, B IRWIN PARACHUTE MANUFACTURING SUPERVISOR Unavailable Unavailable TIRSO, B IRWIN PARACHUTE MANUFACTURING SUPERVISOR Unavailable Unavailable TIRSO, B IRWIN PARACHUTE MANUFACTURING SUPERVISOR Unavailable Unavailable TIRSO, B IRWIN PARACHUTE MANUFACTURING SUPERVISOR Unavailable Unavailable TIRSO, B IRWIN PARACHUTE MANUFACTURING SUPERVISOR Unavailable Unavailable TIRSO, B IRWIN PARACHUTE MANUFACTURING SUPERVISOR Unavailable Unavailable TIRSO, B IRWIN PARACHUTE MANUFACTURING SUPERVISOR Unavailable Unavailable TIRSO, B IRWIN PARACHUTE MANUFACTURING SUPERVISOR Unavailable Unavailable TIRSO, B IRWIN PARACHUTE MANUFACTURING SUPERVISOR Unavailable Unavailable TIRSO, B IRWIN PARACHUTE MANUFACTURING SUPERVISOR Unavailable Unavailable TIRSO, B IRWIN PARACHUTE MANUFACTURING SUPERVISOR Unavailable Unavailable TIRSO, B IRWIN PARACHUTE MANUFACTURING SUPERVISOR Unavailable Unavailable TIRSO, B IRWIN PARACHUTE MANUFACTURING SUPERVISOR Unavailable Unavailable ITRSO, B IRWIN PARACHUTE MANUFACTURING SUPERVISOR Unavailable Unavailable TIRSO, B IRWIN PARACHUTE MANUFACTURING SUPERVISOR Unavailable Unavailable TIRSO, B IRWIN PARACHUTE MANUFACTURING SUPERVISOR Unavailable Unavailable TIRSO, B IRWIN PARACHUTE MANUFACTURING SUPERVISOR Unavailable Unavailable TIROS, B IRWIN PARACHUTE MANUFACTURING SUPERVISOR Unavailable Unavailable TIRSO, B IRWIN PARACHUTE MANUFACTURING SUPERVISOR Unavailable Unavailable TIRSO, B IRWIN PARACHUTE MANUFACTURING SUPERVISOR Unavailable Unavailable TIRSO, B IRWIN PARACHUTE MANUFACTURING SUPERVISOR Unavailable Unavailable TIRSO, B IRWIN PARACHUTE MANUFACTURING SUPERVISOR Unavailable Unavailable TIRSO, B IRWIN PARACHUTE MANUFACTURING SUPERVISOR Unavailable Unavailable TIRSO, B IRWIN PARACHUTE MANUFACTURING SUPERVISOR Unavailable Unavailable TIRSO, B IRWIN PARACHUTE MANUFACTURING SUPERVISOR Unavailable Unavailable TIRSO, B IRWIN PARACHUTE MANUFACTURING SUPERVISOR Unavailable Unavailable TIRSO, B IRWIN PARACHUTE MANUFACTURING SUPERVISOR Unavailable Unavailable TIRSO, B IRWIN PARACHUTE MANUFACTURING SUPERVISOR Unavailable Unavailable TIRSO, B IRWIN PARACHUTE MANUFACTURING SUPERVISOR Unavailable Unavailable TIRSO, B IRWIN PARACHUTE MANUFACTURING SUPERVISOR Unavailable Unavailable TIRSO, B IRWIN PARACHUTE MANUFACTURING SUPERVISOR Unavailable Unavailable TIRSO, B IRWIN PARACHUTE MANUFACTURING SUPERVISOR Unavailable Unavailable TIRSO, B IRWIN PARACHUTE MANUFACTURING SUPERVISOR Unavailable Unavailable TIRSO, B IRWIN PARACHUTE MANUFACTURING SUPERVISOR Unavailable Unavailable TIRSO, B IRWIN PARACHUTE MANUFACTURING SUPERVISOR Unavailable Unavailable TIRSO, B IRWIN PARACHUTE MANUFACTURING SUPERVISOR Unavailable Unavailable TIRSO, B IRWIN PARACHUTE MANUFACTURING SUPERVISOR Unavailable Unavailable TIRSO, B IRWIN PARACHUTE MANUFACTURING SUPERVISOR Unavailable Unavailable TIRSO, B IRWIN PARACHUTE MANUFACTURING SUPERVISOR Unavailable Unavailable TIRSO, B IRWIN PARACHUTE MANUFACTURING SUPERVISOR Unavailable Unavailable TIRSO, B IRWIN PARACHUTE MANUFACTURING SUPERVISOR Unavailable Unavailable TIRSO, B RIWIN PARACHUTE MANUFACTURING SUPERVISOR Unavailable Unavailable TIRSO, B IRWIN PARACHUTE MANUFACTURING SUPERVISOR Unavailable Unavailable TIRSO, B IRWIN PARACHUTE MANUFACTURING SUPERVISOR Unavailable Unavailable TIRSO, B IRWIN PARACHUTE MANUFACTURING SUPERVISOR Unavailable Unavailable TIRSO, B IRWIN PARACHUTE MANUFACTURING SUPERVISOR Unavailable Unavailable TIRSO, B IRWIN PARACHUTE MANUFACTURING SUPERVISOR Unavailable Unavailable TIRSO, B IRWIN PARACHUTE MANUFACTURING SUPERVISOR Unavailable Unavailable TIRSO, B IRWIN PARACHUTE MANUFACTURING SUPERVISOR Unavailable Unavailable TIRSO, B IRWIN PARACHUTE MANUFACTURING SUPERVISOR Unavailable Unavailable TIRSO, B IRWIN PARACHUTE MANUFACTURING SUPERVISOR Unavailable Unavailable TIRSO, B IRWIN PARACHUTE MANUFACTURING SUPERVISOR Unavailable Unavailable TIRSO, B IRWIN PARACHUTE MANUFACTURING SUPERVISOR Unavailable Unavailable TIRSO, B IRWIN PARACHUTE MANUFACTURING SUPERVISOR Unavailable Unavailable TIRSO, B IRWIN PARACHUTE MANUFACTURING SUPERVISOR Unavailable Unavailable Re-disclosure Warning The records that you are about to access may contain information from federally-assisted alcohol or drug abuse programs. If such information is present, then the following federally mandated warning applies: This information has been disclosed to you from records protected by federal confidentiality rules (42 CFR part 2). The federal rules prohibit you from making any further disclosure of this information unless further disclosure is expressly permitted by the written consent of the person to whom it pertains or as otherwise permitted by 42 CFR part 2. A general authorization for the release of medical or other information is NOT sufficient for this purpose. The Federal rules restrict any use of the information to criminally investigate or prosecute any alcohol or drug abuse patient.The records that you are about to access may contain highly sensitive health information, the redisclosure of which is protected by Article 27-F of the [facility] Public Health law. If you continue you may have access to information: Regarding HIV / AIDS; Provided by facilities licensed or operated by the [facility] Office of Mental Health; or Provided by the [facility] Office for People With Developmental Disabilities. If such information is present, then the following [facility] mandated warning applies: This information has been disclosed to you from confidential records which are protected by state law. State law prohibits you from making any further disclosure of this information without the specific written consent of the person to whom it pertains, or as otherwise permitted by law. Any unauthorized further disclosure in violation of state law may result in a fine or snf sentence or both. A general authorization for the release of medical or other information is NOT sufficient authorization for further disc losure. Family History Family Member Name Family Member Gender Family Member Status Date o f Status Description Data Source(s) Unknown Unknown Problem MEDENT ([facility]) Unknown Male Problem MEDENT ([facility]) Unknown Male Problem MEDENT ([facility] Unknown Female Problem MEDENT ([facility] () Unknown Male Problem [facility] ([facility] () Encounters Encounter Providers Location Date Indications Data Source(s ) Unknown [address] [facility] [id number] 02/20/2021 12:00:00 AM EDT [facility] Unknown [address] [id number] 02/13/2021 12:00:00 AM EDT [facility] Out[facility] Attender: Catarina BALL Main Office 02/09/2021 11:15:00 AM EDT MEDENT ([facility]) Outpatient [address] [id number] 01/23/2021 12:00:00 AM EDT eCW1 ([facility] Outpatient [address] [id number] 01/19/2021 12:00:00 AM EDT eCW1 ([facility]) Unknown [address] [facility] [place] [address] 01/19/2021 12:00:00 AM EDT eCW1 ([facility]) Outpatient [address] [facility] [place] [address] 12/30/2020 12:00:00 AM EDT eCW1 ([facility]) Outpatient [address] [facility] [id number] 12/16/2020 12:00:00 AM EDT eCW1 ([facility]) Unknown [address] [facility] [place] [address] 12/06/2020 12:00:00 AM EDT [facility]CW1 [facility]) [place] [address] [facility] [place] [address] 12/05/2020 12:00:00 AM EDT [facility] Office Visit, Est Pt., Level 3 PC [address] [place] [address] 12/02/2020 12:00:00 AM EDT eCW1 ([facility]) Unknown [address] [facility] [address] 11/30/2020 12:00:00 AM EDT [facility]CW1 [facility]) (Cysto1) Urology [address] [place] [address] 11/23/2020 12:00:00 AM EDT [facility]CW1 ([facility]) Outpatient [address] [facility] [address] 11/18/2020 12:00:00 AM EDT [facility]CW1 [facility]) Outpatient [address] [facility] [place] [address] 11/18/2020 12:00:00 AM EDT eCW1 ([facility]) Office Visit, Est Pt., Level 4 PC [address] [place] [address] 11/11/2020 12:00:00 AM EDT eCW1 ([facility]) Outpatient Attender: Catarina BALL Main Office 11/09/2020 11:15:00 AM EDT MEDENT ([facility]) Outpatient [address] [facility] [address] 11/04/2020 12:00:00 AM EDT [facility]CW1 [facility]) Outpatient Attender: Estefany Sanford/Keke/Simón/Reyes 11/01/2020 04:00:00 PM EDT MEDENT ([facility]) Outpatient [address] [facility] [place] [address] 10/28/2020 12:00:00 AM EDT eCW1 ([facility] Outpatient [address] [facility] [place] [address] 10/21/2020 12:00:00 AM EDT eCW1 ([facility]) Outpatient Attender: Estefany Sanford/Keke/Simón/Reyes 10/12/2020 02:00:00 PM EDT MEDENT ([facility]) Unknown [address] [facility] [address] 09/26/2020 12:00:00 AM EDT eCW1 [facility] Office Visit, Est Pt., Level 2 PC [address] [place] [address] 09/22/2020 12:00:00 AM EDT eCW1 ([facility]) Unknown [address] [facility] [place] [address] 09/20/2020 12:00:00 AM EDT eCW1 ([facility]) Unknown [address] [facility] [place] [address] 09/05/2020 12:00:00 AM EDT eCW1 ([facility]) Unknown [address] [facility] [place] [address] 08/16/2020 12:00:00 AM EDT eCW1 ([facility]) Outpatient [address] [facility] [place] [address] 08/11/2020 12:00:00 AM EDT eCW1 ([facility]) Unknown [address] [facility] [place] [address] 08/11/2020 12:00:00 AM EDT eCW1 ([facility]) Outpatient Attender: Catarina BALL Main Office 08/08/2020 01:00:00 PM EDT MEDENT ([facility]) Out[place] [address] [facility] [place] [address] 07/22/2020 12:00:00 AM EST eCW1 ([facility]) Unknown [address] [facility] [address] 07/22/2020 12:00:00 AM EST eCW1 ([facility]) Unknown [address] [facility] [place] [address] 07/20/2020 12:00:00 AM EST eCW1 ([facility]) Unknown [address] [facility] [address] 07/18/2020 12:00:00 AM EST [facility]CW1 [facility]) Outpatient Attender: Estefany Sanford/Keke/Simón/Reyes 07/13/2020 02:00:00 PM EST MED[facility] ([facility]) Unknown [address] [facility] [place] [address] 07/13/2020 12:00:00 AM EST eCW1 ([facility]) Office Visit, Est Pt., Level 3 PC [address] [place] [address] 07/01/2020 12:00:00 AM EST eCW1 ([facility]) Unknown [address] [facility] [place] [address] 06/15/2020 12:00:00 AM EST eCW1 ([facility]) Outpatient [address] [facility] [place] [address] 06/03/2020 12:00:00 AM EST eCW1 ([facility]) Outpatient [address] [facility] [place] [address] 05/31/2020 12:00:00 AM EST eCW1 ([facility]) Unknown [address] [facility] [place] [address] 05/30/2020 12:00:00 AM EST [facility]CW1 ([facility]) Unknown [address] [facility] [place] [address] 05/20/2020 12:00:00 AM EST [facility]CW1 ([facility]) Unknown [address] [facility] [address] 05/17/2020 12:00:00 AM EST eCW1 ([facility]) Outpatient [address] [facility] [address] 05/12/2020 12:00:00 AM EST eCW1 ([facility]) Unknown [address] [facility] [place] [address] 05/06/2020 12:00:00 AM EST eCW1 ([facility]) Office Visit, Est Pt., Level 3 PC [address] [place] [address] 05/05/2020 12:00:00 AM EST eCW1 ([facility]) Outpatient Attender: Catarina BALL Main Office 05/03/2020 11:45:00 AM EST MEDENT ([facility]) Unknown [address] [facility] [place] [address] 05/03/2020 12:00:00 AM EST eCW1 ([facility]) Unknown [address] [facility] [place] [address] 04/29/2020 12:00:00 AM EST eCW1 ([facility]) Outpatient [address] [facility] [place] [address] 04/28/2020 12:00:00 AM EST eCW1 ([facility]) Unknown [address] [facility] [place] [address] 04/25/2020 12:00:00 AM EST eCW1 ([facility]) Office Visit, Est Pt., Level 2 PC [address] [place] [address] 04/06/2020 12:00:00 AM EST eCW1 ([facility]) Unknown [address] [facility] [place] [address] 04/05/2020 12:00:00 AM EST [facility] Outpatient [address] [facility] [place] [address] 03/31/2020 12:00:00 AM EST eCW1 ([facility]) Outpatient Attender: IRWIN CHAHAL NP Physical Therapy 12:00:00 PM EST MEDENT ([facility]) Unknown [address] [facility] [place] [address] 03/15/2020 12:00:00 AM EST [facility]CW1 [facility] Unknown [address] [facility] [address] 03/15/2020 12:00:00 AM EST eCW1 ([facility]) Unknown [address] [facility] [place] [address] 03/07/2020 12:00:00 AM EDT eCW1 ([facility]) Outpatient [address] [facility] [place] [address] 03/04/2020 12:00:00 AM EDT eCW1 ([facility]) Outpatient Attender: Catarina BALL Main Office 02/01/2020 01:30:00 PM EDT MEDENT ([facility]) [facility] [address] [facility] [address] 01/11/2020 12:00:00 AM EDT eCW1 ([facility]) Outpatient Attender: Dionne BALL Physical Therapy 11:30:00 AM EDT MEDENT ([facility]) Immunizations Vaccine Date Status Description Data Source(s) COVID-19 VACCINE Moderna 08/19/2020 12:00:00 AM EDT completed [facility] Vaccine Series Complete: YESThis Data wa s Submitted to [facility]. COVID-19 VACCINE Moderna 07/22/2020 12:00:00 AM EST completed [facility] Vaccine Series Complete: NOThis Data was Submitted to [facility]. IIV3. This is one of two codes replacing CVX 15, which is being retired. 03/01/2020 07:14:00 AM EDT completed eCW1 ([facility]) IIV3. This is one of two codes replacing CVX 15, which is being retired. 03/01/2020 07:14:00 AM EDT completed eCW1 ([facility]) IIV3. This is one of two codes replacing CVX 15, which is being retired. 03/01/2020 07:14:00 AM EDT completed eCW1 ([facility]) IIV3. This is one of two codes replacing CVX 15, which is being retired. 03/01/2020 07:14:00 AM EDT completed eCW1 ([facility]) IIV3. This is one of two codes replacing CVX 15, which is being retired. 03/01/2020 07:14:00 AM EDT completed eCW1 ([facility]) IIV3. This is one of two codes replacing CVX 15, which is being retired. 03/01/2020 07:14:00 AM EDT completed eCW1 ([facility]) IIV3. This is one of two codes replacing CVX 15, which is being retired. 03/01/2020 07:14:00 AM EDT completed eCW1 ([facility]) IIV3. This is one of two codes replacing CVX 15, which is being retired. 03/01/2020 07:14:00 AM EDT completed eCW1 ([facility]) IIV3. This is one of two codes replacing CVX 15, which is being retired. 03/01/2020 07:14:00 AM EDT completed eCW1 ([facility]) IIV3. This is one of two codes replacing CVX 15, which is being retired. 03/01/2020 07:14:00 AM EDT completed eCW1 ([facility]) IIV3. This is one of two codes replacing CVX 15, which is being retired. 03/01/2020 07:14:00 AM EDT completed eCW1 ([facility]) IIV3. This is one of two codes replacing CVX 15, which is being retired. 03/01/2020 07:14:00 AM EDT completed eCW1 ([facility]) IIV3. This is one of two codes replacing CVX 15, which is being retired. 03/01/2020 07:14:00 AM EDT completed eCW1 ([facility]) IIV3. This is one of two codes replacing CVX 15, which is being retired. 03/01/2020 07:14:00 AM EDT completed eCW1 ([facility]) IIV3. This is one of two codes replacing CVX 15, which is being retired. 03/01/2020 07:14:00 AM EDT completed eCW1 ([facility]) IIV3. This is one of two codes replacing CVX 15, which is being retired. 03/01/2020 07:14:00 AM EDT completed eCW1 ([facility]) IIV3. This is one of two codes replacing CVX 15, which is being retired. 03/01/2020 07:14:00 AM EDT completed eCW1 ([facility]) IIV3. This is one of two codes replacing CVX 15, which is being retired. 03/01/2020 07:14:00 AM EDT completed eCW1 ([facility]) IIV3. This is one of two codes replacing CVX 15, which is being retired. 03/01/2020 07:14:00 AM EDT completed eCW1 ([facility]) IIV3. This is one of two codes replacing CVX 15, which is being retired. 03/01/2020 07:14:00 AM EDT completed eCW1 ([facility]) IIV3. This is one of two codes replacing CVX 15, which is being retired. 03/01/2020 07:14:00 AM EDT completed eCW1 ([facility]) IIV3. This is one of two codes replacing CVX 15, which is being retired. 03/01/2020 07:14:00 AM EDT completed eCW1 ([facility]) IIV3. This is one of two codes replacing CVX 15, which is being retired. 03/01/2020 07:14:00 AM EDT completed eCW1 ([facility]) IIV3. This is one of two codes replacing CVX 15, which is being retired. 03/01/2020 07:14:00 AM EDT completed eCW1 ([facility]) IIV3. This is one of two codes replacing CVX 15, which is being retired. 03/01/2020 07:14:00 AM EDT completed eCW1 ([facility]) IIV3. This is one of two codes replacing CVX 15, which is being retired. 03/01/2020 07:14:00 AM EDT completed eCW1 ([facility]) IIV3. This is one of two codes replacing CVX 15, which is being retired. 03/01/2020 07:14:00 AM EDT completed eCW1 ([facility]) IIV3. This is one of two codes replacing CVX 15, which is being retired. 03/01/2020 07:14:00 AM EDT completed eCW1 ([facility]) IIV3. This is one of two codes replacing CVX 15, which is being retired. 03/01/2020 07:14:00 AM EDT completed eCW1 ([facility]) IIV3. This is one of two codes replacing CVX 15, which is being retired. 03/01/2020 07:14:00 AM EDT completed eCW1 ([facility]) IIV3. This is one of two codes replacing CVX 15, which is being retired. 03/01/2020 07:14:00 AM EDT completed eCW1 ([facility]) IIV3. This is one of two codes replacing CVX 15, which is being retired. 03/01/2020 07:14:00 AM EDT completed eCW1 ([facility]) IIV3. This is one of two codes replacing CVX 15, which is being retired. 03/01/2020 07:14:00 AM EDT completed eCW1 ([facility]) IIV3. This is one of two codes replacing CVX 15, which is being retired. 03/01/2020 07:14:00 AM EDT completed eCW1 ([facility]) IIV3. This is one of two codes replacing CVX 15, which is being retired. 03/01/2020 07:14:00 AM EDT completed eCW1 ([facility]) IIV3. This is one of two codes replacing CVX 15, which is being retired. 03/01/2020 07:14:00 AM EDT completed eCW1 ([facility]) IIV3. This is one of two codes replacing CVX 15, which is being retired. 03/01/2020 07:14:00 AM EDT completed eCW1 ([facility]) IIV3. This is one of two codes replacing CVX 15, which is being retired. 03/01/2020 07:14:00 AM EDT completed eCW1 ([facility]) IIV3. This is one of two codes replacing CVX 15, which is being retired. 03/01/2020 07:14:00 AM EDT completed eCW1 ([facility]) IIV3. This is one of two codes replacing CVX 15, which is being retired. 03/01/2020 07:14:00 AM EDT completed eCW1 ([facility]) IIV3. This is one of two codes replacing CVX 15, which is being retired. 03/01/2020 07:14:00 AM EDT completed eCW1 ([facility]) IIV3. This is one of two codes replacing CVX 15, which is being retired. 03/01/2020 07:14:00 AM EDT completed eCW1 ([facility]) IIV3. This is one of two codes replacing CVX 15, which is being retired. 03/01/2020 07:14:00 AM EDT completed eCW1 ([facility]) IIV3. This is one of two codes replacing CVX 15, which is being retired. 03/01/2020 07:14:00 AM EDT completed eCW1 ([facility]) IIV3. This is one of two codes replacing CVX 15, which is being retired. 03/01/2020 07:14:00 AM EDT completed eCW1 ([facility]) IIV3. This is one of two codes replacing CVX 15, which is being retired. 03/01/2020 07:14:00 AM EDT completed eCW1 ([facility]) IIV3. This is one of two codes replacing CVX 15, which is being retired. 03/01/2020 07:14:00 AM EDT completed eCW1 ([facility]) IIV3. This is one of two codes replacing CVX 15, which is being retired. 03/01/2020 07:14:00 AM EDT completed eCW1 ([facility]) IIV3. This is one of two codes replacing CVX 15, which is being retired. 03/01/2020 07:14:00 AM EDT completed eCW1 ([facility]) Medications Medication Brand Name Start Date Product Form Dose Route Admi nistrative Instructions Pharmacy Instructions Status Indications Reaction Description Data Source(s) Betamethasone 1 MG/ML Topical Cream Betamethasone Deshler rate 0.1 % Betamethasone Valerate 0.1 % 12/16/2020 12:00:00 AM EDT 1.0 {application} active Betamethasone Valerate 0.1 % [facility] Betamethasone 1 MG/ML Topical Cream Betamethasone Sarah rate 0.1 % Betamethasone Valerate 0.1 % 12/16/2020 12:00:00 AM EDT 1.0 {application} active Betamethasone Valerate 0.1 % [facility]CW[facility]) Betamethasone 1 MG/ML Topical Cream Betamethasone Sarah rate 0.1 % Betamethasone Valerate 0.1 % 12/16/2020 12:00:00 AM EDT 1.0 {application} active Betamethasone Valerate 0.1 % eCW1 ([facility]) Betamethasone 1 MG/ML Topical Cream Betamethasone Deshler rate 0.1 % Betamethasone Valerate 0.1 % 12/16/2020 12:00:00 AM EDT 1.0 {application} active Betamethasone Valerate 0.1 % eCW1 ([facility]) Betamethasone 1 MG/ML Topical Cream Betamethasone Deshler rate 0.1 % Betamethasone Valerate 0.1 % 12/16/2020 12:00:00 AM EDT 1.0 {application} active Betamethasone Valerate 0.1 % eCW1 ([facility]) Betamethasone 1 MG/ML Topical Cream Betamethasone Deshler rate 0.1 % Betamethasone Valerate 0.1 % 12/16/2020 12:00:00 AM EDT 1.0 {application} active Betamethasone Valerate 0.1 % eCW1 ([facility]) Betamethasone 1 MG/ML Topical Cream Betamethasone Deshler rate 0.1 % Betamethasone Valerate 0.1 % 12/16/2020 12:00:00 AM EDT 1.0 {application} active Betamethasone Valerate 0.1 % [facility]CW1 [facility]) Nystatin 100 UNT/MG Topical Powder Nystatin 823572 UNI T/GM Nystatin 052221 UNIT/GM 12/02/2020 12:00:00 AM EDT 1.0 {application} active Nystatin 917862 UNIT/GM eCW1 ([facility]) Nystatin 100 UNT/MG Topical Powder Nystatin 133059 UNI T/GM Nystatin 819672 UNIT/GM 12/02/2020 12:00:00 AM EDT 1.0 {application} active Nystatin 240015 UNIT/GM eCW1 ([facility]) Nystatin 100 UNT/MG Topical Powder Nystatin 807748 UNI T/GM Nystatin 229964 UNIT/GM 12/02/2020 12:00:00 AM EDT 1.0 {application} active Nystatin 329330 UNIT/GM eCW1 ([facility]) Sulfamethoxazole 800 MG / Trimethoprim 1 60 MG Oral Tablet [Bactrim] Bactrim DS 800-160 MG Bactrim DS 800-160 MG 11/18/2020 12:00:00 AM EDT 1.0 {table t} active Bactrim DS 800-160 MG eCW1 ( [facility]) Sulfamethoxazole 800 MG / Trimethoprim 1 60 MG Oral Tablet [Bactrim] Bactrim DS 800-160 MG Bactrim DS 800-160 MG 11/18/2020 12:00:00 AM EDT 1.0 {table t} active Bactrim DS 800-160 MG eCW1 ( [facility]) Sulfamethoxazole 800 MG / Trimethoprim 1 60 MG Oral Tablet [Bactrim] Bactrim DS 800-160 MG Bactrim DS 800-160 MG 11/18/2020 12:00:00 AM EDT 1.0 {table t} active Bactrim DS 800-160 MG eCW1 ( [facility]) Sulfamethoxazole 800 MG / Trimethoprim 1 60 MG Oral Tablet [Bactrim] Bactrim DS 800-160 MG Bactrim DS 800-160 MG 11/18/2020 12:00:00 AM EDT 1.0 {table t} active Bactrim DS 800-160 MG eCW1 ( [facility]) Sulfamethoxazole 800 MG / Trimethoprim 1 60 MG Oral Tablet [Bactrim] Bactrim DS 800-160 MG Bactrim DS 800-160 MG 11/18/2020 12:00:00 AM EDT 1.0 {table t} active Bactrim DS 800-160 MG eCW1 ( [facility]) Sulfamethoxazole 800 MG / Trimethoprim 1 60 MG Oral Tablet [Bactrim] Bactrim DS 800-160 MG Bactrim DS 800-160 MG 11/18/2020 12:00:00 AM EDT 1.0 {table t} active Bactrim DS 800-160 MG eCW1 ( [facility]) Sulfamethoxazole 800 MG / Trimethoprim 1 60 MG Oral Tablet [Bactrim] Bactrim DS 800-160 MG Bactrim DS 800-160 MG 11/18/2020 12:00:00 AM EDT 1.0 {table t} active Bactrim DS 800-160 MG eCW1 ( [facility]) Sulfamethoxazole 800 MG / Trimethoprim 1 60 MG Oral Tablet [Bactrim] Bactrim DS 800-160 MG Bactrim DS 800-160 MG 11/18/2020 12:00:00 AM EDT 1.0 {table t} active Bactrim DS 800-160 MG eCW1 ( [facility]) Sulfamethoxazole 800 MG / Trimethoprim 1 60 MG Oral Tablet [Bactrim] Bactrim DS 800-160 MG Bactrim DS 800-160 MG 11/18/2020 12:00:00 AM EDT 1.0 {table t} active Bactrim DS 800-160 MG eCW1 ( [facility]) Sulfamethoxazole 800 MG / Trimethoprim 1 60 MG Oral Tablet [Bactrim] Bactrim DS 800-160 MG Bactrim DS 800-160 MG 11/18/2020 12:00:00 AM EDT 1.0 {table t} active Bactrim DS 800-160 MG eCW1 ( [facility]) Sulfamethoxazole 800 MG / Trimethoprim 1 60 MG Oral Tablet [Bactrim] Bactrim DS 800-160 MG Bactrim DS 800-160 MG 11/18/2020 12:00:00 AM EDT 1.0 {table t} active Bactrim DS 800-160 MG eCW1 ( [facility]) Sulfamethoxazole 800 MG / Trimethoprim 1 60 MG Oral Tablet [Bactrim] Bactrim DS 800-160 MG Bactrim DS 800-160 MG 11/18/2020 12:00:00 AM EDT 1.0 {table t} active Bactrim DS 800-160 MG eCW1 ( [facility]) Sulfamethoxazole 800 MG / Trimethoprim 1 60 MG Oral Tablet [Bactrim] Bactrim DS 800-160 MG Bactrim DS 800-160 MG 11/18/2020 12:00:00 AM EDT 1.0 {table t} active Bactrim DS 800-160 MG eCW1 ( [facility]) Sulfamethoxazole 800 MG / Trimethoprim 1 60 MG Oral Tablet [Bactrim] Bactrim DS 800-160 MG Bactrim DS 800-160 MG 11/18/2020 12:00:00 AM EDT 1.0 {table t} active Bactrim DS 800-160 MG eCW1 ( [facility]) Sulfamethoxazole 800 MG / Trimethoprim 1 60 MG Oral Tablet [Bactrim] Bactrim DS 800-160 MG Bactrim DS 800-160 MG 11/18/2020 12:00:00 AM EDT 1.0 {table t} active Bactrim DS 800-160 MG eCW1 ( [facility]) Ergocalciferol 03541 UNT Oral Capsule Ergocalciferol 11/08/2020 12:00:00 AM EDT ORAL active MEDENT ( [facility]) Cyanocobalamin 11/08/2020 12:00:00 AM EDT ORAL act isaiah MEDENT ([facility]) 30 ACTUAT fluticasone furoate 0.1 MG/ACT UAT / vilanterol 0.025 MG/ACTUAT Dry Powder Inhaler [Breo] Breo Ellipta 10/12/2020 12:00:00 AM EDT RESPIRATORY active [facility] ([facility]) 30 ACTUAT fluticasone furoate 0.1 MG/ACT UAT / vilanterol 0.025 MG/ACTUAT Dry Powder Inhaler [Breo] Breo Ellipta 10/12/2020 12:00:00 AM EDT RESPIRATORY active MEDENT ([facility] ) Cyanocobalamin 100 MCG UNK 07/16/2020 12:00:00 AM EST active Cyanocobalamin 100 MCG eCW1 ([facility]) Fluocinolone Acetonide 0.1 MG/ML Topical Cream Fluocin olone Acetonide 0.01 % Fluocinolone Acetonide 0.01 % 07/16/2020 12:00:00 AM EST 1.0 {appli cation} active Fluocinolone Acetonide 0. 01 % eCW1 ([facility]) Fluocinolone Acetonide 0.1 MG/ML Topical Cream Fluocin olone Acetonide 0.01 % Fluocinolone Acetonide 0.01 % 07/16/2020 12:00:00 AM EST 1.0 {appli cation} active Fluocinolone Acetonide 0. 01 % eCW1 ([facility]) 12 HR Guaifenesin 600 MG Extended Release Oral Tablet [Mucinex] Mucinex 600 MG Mucinex 600 MG 07/16/2020 12:00:00 AM EST 1.0 {tablet_as_needed} active Mucinex 600 MG eCW1 ([facility]) Fluocinolone Acetonide 0.1 MG/ML Topical Cream Fluocin olone Acetonide 0.01 % Fluocinolone Acetonide 0.01 % 07/16/2020 12:00:00 AM EST 1.0 {appli cation} active Fluocinolone Acetonide 0. 01 % eCW1 ([facility]) 12 HR Guaifenesin 600 MG Extended Release Oral Tablet [Mucinex] Mucinex 600 MG Mucinex 600 MG 07/16/2020 12:00:00 AM EST 1.0 {tablet_as_needed} active Mucinex 600 MG eCW1 ([facility]) 12 HR Guaifenesin 600 MG Extended Release Oral Tablet [Mucinex] Mucinex 600 MG Mucinex 600 MG 07/16/2020 12:00:00 AM EST 1.0 {tablet_as_needed} active Mucinex 600 MG eCW1 ([facility]) 12 HR Guaifenesin 600 MG Extended Release Oral Tablet [Mucinex] Mucinex 600 MG Mucinex 600 MG 07/16/2020 12:00:00 AM EST 1.0 {tablet_as_needed} active Mucinex 600 MG eCW1 ([facility]) FiberCon 625 MG UNK 07/16/2020 12:00:00 AM EST 2.0 {tablets_ as_needed} active FiberCon 625 MG eCW1 ([facility]) Fluocinolone Acetonide 0.1 MG/ML Topical Cream Fluocin olone Acetonide 0.01 % Fluocinolone Acetonide 0.01 % 07/16/2020 12:00:00 AM EST 1.0 {appli cation} active Fluocinolone Acetonide 0. 01 % eCW1 ([facility]) 12 HR Guaifenesin 600 MG Extended Release Oral Tablet [Mucinex] Mucinex 600 MG Mucinex 600 MG 07/16/2020 12:00:00 AM EST 1.0 {tablet_as_needed} active Mucinex 600 MG eCW1 ([facility]) Fluocinolone Acetonide 0.1 MG/ML Topical Cream Fluocin olone Acetonide 0.01 % Fluocinolone Acetonide 0.01 % 07/16/2020 12:00:00 AM EST 1.0 {appli cation} active eCW1 ([facility]) FiberCon 625 MG UNK 07/16/2020 12:00:00 AM EST 2.0 {tablets_ as_needed} active FiberCon 625 MG eCW1 ([facility]) Cyanocobalamin 100 MCG UNK 07/16/2020 12:00:00 AM EST active Cyanocobalamin 100 MCG eCW1 ([facility]) Fluocinolone Acetonide 0.1 MG/ML Topical Cream Fluocin olone Acetonide 0.01 % Fluocinolone Acetonide 0.01 % 07/16/2020 12:00:00 AM EST 1.0 {appli cation} active Fluocinolone Acetonide 0. 01 % eCW1 ([facility]) Ergocalciferol 93424 UNT Oral Capsule Ergocalciferol 1 .25 MG (14233 UT) Ergocalciferol 1.25 MG (78053 UT) 07/16/2020 12:00:00 AM EST 1.0 {c apsule} active Ergocalciferol 1.25 MG (5 0000 UT) eCW1 ([facility]) calcium polycarbophil 625 MG Oral Tablet [FiberCon] Fi berCon 625 MG FiberCon 625 MG 07/16/2020 12:00:00 AM EST 2.0 {tablets_as_needed} active FiberCon 625 MG eCW1 ([facility]) Ergocalciferol 35708 UNT Oral Capsule Ergocalciferol 1 .25 MG (52018 UT) Ergocalciferol 1.25 MG (97153 UT) 07/16/2020 12:00:00 AM EST 1.0 {c apsule} active Ergocalciferol 1.25 MG (5 0000 UT) eCW1 ([facility]) Ergocalciferol 87709 UNT Oral Capsule Ergocalciferol 1 .25 MG (56082 UT) Ergocalciferol 1.25 MG (85325 UT) 07/16/2020 12:00:00 AM EST 1.0 {c apsule} active Ergocalciferol 1.25 MG (5 0000 UT) eCW1 ([facility]) Ergocalciferol 81872 UNT Oral Capsule Ergocalciferol 1 .25 MG (48143 UT) Ergocalciferol 1.25 MG (40346 UT) 07/16/2020 12:00:00 AM EST 1.0 {c apsule} active Ergocalciferol 1.25 MG (5 0000 UT) eCW1 ([facility]) Ergocalciferol 90516 UNT Oral Capsule Ergocalciferol 1 .25 MG (41862 UT) Ergocalciferol 1.25 MG (50325 UT) 07/16/2020 12:00:00 AM EST 1.0 {c apsule} active Ergocalciferol 1.25 MG (5 0000 UT) eCW1 ([facility]) Cyanocobalamin 100 MCG UNK 07/16/2020 12:00:00 AM EST active Cyanocobalamin 100 MCG eCW1 ([facility]) Fluocinolone Acetonide 0.1 MG/ML Topical Cream Fluocin olone Acetonide 0.01 % Fluocinolone Acetonide 0.01 % 07/16/2020 12:00:00 AM EST 1.0 {appli cation} active Fluocinolone Acetonide 0. 01 % eCW1 ([facility]) Ergocalciferol 93509 UNT Oral Capsule Ergocalciferol 1 .25 MG (91658 UT) Ergocalciferol 1.25 MG (34302 UT) 07/16/2020 12:00:00 AM EST 1.0 {c apsule} active Ergocalciferol 1.25 MG (5 0000 UT) eCW1 ([facility]) calcium polycarbophil 625 MG Oral Tablet [FiberCon] Fi berCon 625 MG FiberCon 625 MG 07/16/2020 12:00:00 AM EST 2.0 {tablets_as_needed} active FiberCon 625 MG eCW1 ([facility]) 12 HR Guaifenesin 600 MG Extended Release Oral Tablet [Mucinex] Mucinex 600 MG Mucinex 600 MG 07/16/2020 12:00:00 AM EST 1.0 {tablet_as_needed} active Mucinex 600 MG eCW1 ([facility]) Fluocinolone Acetonide 0.1 MG/ML Topical Cream Fluocin olone Acetonide 0.01 % Fluocinolone Acetonide 0.01 % 07/16/2020 12:00:00 AM EST 1.0 {appli cation} active Fluocinolone Acetonide 0. 01 % eCW1 ([facility]) Cyanocobalamin 100 MCG UNK 07/16/2020 12:00:00 AM EST active Cyanocobalamin 100 MCG eCW1 ([facility]) Cyanocobalamin 100 MCG UNK 07/16/2020 12:00:00 AM EST active Cyanocobalamin 100 MCG eCW1 ([facility]) Ergocalciferol 15703 UNT Oral Capsule Ergocalciferol 1 .25 MG (27096 UT) Ergocalciferol 1.25 MG (39036 UT) 07/16/2020 12:00:00 AM EST 1.0 {c apsule} active Ergocalciferol 1.25 MG (5 0000 UT) eCW1 ([facility]) Cyanocobalamin 100 MCG UNK 07/16/2020 12:00:00 AM EST active Cyanocobalamin 100 MCG eCW1 ([facility]) calcium polycarbophil 625 MG Oral Tablet [FiberCon] Fi berCon 625 MG FiberCon 625 MG 07/16/2020 12:00:00 AM EST 2.0 {tablets_as_needed} active FiberCon 625 MG eCW1 ([facility]) calcium polycarbophil 625 MG Oral Tablet [FiberCon] Fi berCon 625 MG FiberCon 625 MG 07/16/2020 12:00:00 AM EST 2.0 {tablets_as_needed} active FiberCon 625 MG eCW1 ([facility]) Ergocalciferol 55394 UNT Oral Capsule Ergocalciferol 1 .25 MG (80500 UT) Ergocalciferol 1.25 MG (23450 UT) 07/16/2020 12:00:00 AM EST 1.0 {c apsule} active Ergocalciferol 1.25 MG (5 0000 UT) eCW1 ([facility]) 12 HR Guaifenesin 600 MG Extended Release Oral Tablet [Mucinex] Mucinex 600 MG Mucinex 600 MG 07/16/2020 12:00:00 AM EST 1.0 {tablet_as_needed} active Mucinex 600 MG eCW1 ([facility]) 12 HR Guaifenesin 600 MG Extended Release Oral Tablet [Mucinex] Mucinex 600 MG Mucinex 600 MG 07/16/2020 12:00:00 AM EST 1.0 {tablet_as_needed} active Mucinex 600 MG eCW1 ([facility]) 12 HR Guaifenesin 600 MG Extended Release Oral Tablet [Mucinex] Mucinex 600 MG Mucinex 600 MG 07/16/2020 12:00:00 AM EST 1.0 {tablet_as_needed} active Mucinex 600 MG eCW1 ([facility]) 12 HR Guaifenesin 600 MG Extended Release Oral Tablet [Mucinex] Mucinex 600 MG Mucinex 600 MG 07/16/2020 12:00:00 AM EST 1.0 {tablet_as_needed} active Mucinex 600 MG eCW1 ([facility]) Cyanocobalamin 100 MCG UNK 07/16/2020 12:00:00 AM EST active Cyanocobalamin 100 MCG eCW1 ([facility]) FiberCon 625 MG UNK 07/16/2020 12:00:00 AM EST 2.0 {tablets_ as_needed} active FiberCon 625 MG eCW1 ([facility]) calcium polycarbophil 625 MG Oral Tablet [FiberCon] Fi berCon 625 MG FiberCon 625 MG 07/16/2020 12:00:00 AM EST 2.0 {tablets_as_needed} active FiberCon 625 MG eCW1 ([facility]) calcium polycarbophil 625 MG Oral Tablet [FiberCon] Fi berCon 625 MG FiberCon 625 MG 07/16/2020 12:00:00 AM EST 2.0 {tablets_as_needed} active FiberCon 625 MG eCW1 ([facility]) 12 HR Guaifenesin 600 MG Extended Release Oral Tablet [Mucinex] Mucinex 600 MG Mucinex 600 MG 07/16/2020 12:00:00 AM EST 1.0 {tablet_as_needed} active Mucinex 600 MG eCW1 ([facility]) Ergocalciferol 74455 UNT Oral Capsule Ergocalciferol 1 .25 MG (44141 UT) Ergocalciferol 1.25 MG (03195 UT) 07/16/2020 12:00:00 AM EST 1.0 {c apsule} active Ergocalciferol 1.25 MG (5 0000 UT) eCW1 ([facility]) 12 HR Guaifenesin 600 MG Extended Release Oral Tablet [Mucinex] Mucinex 600 MG Mucinex 600 MG 07/16/2020 12:00:00 AM EST 1.0 {tablet_as_needed} active Mucinex 600 MG eCW1 ([facility]) calcium polycarbophil 625 MG Oral Tablet [FiberCon] Fi berCon 625 MG FiberCon 625 MG 07/16/2020 12:00:00 AM EST 2.0 {tablets_as_needed} active eCW1 ([facility]) Cyanocobalamin 100 MCG UNK 07/16/2020 12:00:00 AM EST active Cyanocobalamin 100 MCG eCW1 ([facility]) Cyanocobalamin 100 MCG UNK 07/16/2020 12:00:00 AM EST active Cyanocobalamin 100 MCG eCW1 ([facility]) Ergocalciferol 88445 UNT Oral Capsule Ergocalciferol 1 .25 MG (15010 UT) Ergocalciferol 1.25 MG (15248 UT) 07/16/2020 12:00:00 AM EST 1.0 {c apsule} active Ergocalciferol 1.25 MG (5 0000 UT) eCW1 ([facility]) calcium polycarbophil 625 MG Oral Tablet [FiberCon] Fi berCon 625 MG FiberCon 625 MG 07/16/2020 12:00:00 AM EST 2.0 {tablets_as_needed} active FiberCon 625 MG eCW1 ([facility]) Cyanocobalamin 100 MCG UNK 07/16/2020 12:00:00 AM EST active Cyanocobalamin 100 MCG eCW1 ([facility]) Ergocalciferol 78823 UNT Oral Capsule Ergocalciferol 1 .25 MG (80254 UT) Ergocalciferol 1.25 MG (51494 UT) 07/16/2020 12:00:00 AM EST 1.0 {c apsule} active Ergocalciferol 1.25 MG (5 0000 UT) eCW1 ([facility]) Ergocalciferol 53152 UNT Oral Capsule Ergocalciferol 1 .25 MG (31684 UT) Ergocalciferol 1.25 MG (33187 UT) 07/16/2020 12:00:00 AM EST 1.0 {c apsule} active Ergocalciferol 1.25 MG (5 0000 UT) eCW1 ([facility]) 12 HR Guaifenesin 600 MG Extended Release Oral Tablet [Mucinex] Mucinex 600 MG Mucinex 600 MG 07/16/2020 12:00:00 AM EST 1.0 {tablet_as_needed} active Mucinex 600 MG eCW1 ([facility]) Cyanocobalamin 100 MCG UNK 07/16/2020 12:00:00 AM EST active Cyanocobalamin 100 MCG eCW1 ([facility]) Fluocinolone Acetonide 0.1 MG/ML Topical Cream Fluocin olone Acetonide 0.01 % Fluocinolone Acetonide 0.01 % 07/16/2020 12:00:00 AM EST 1.0 {appli cation} active Fluocinolone Acetonide 0. 01 % eCW1 ([facility]) Cyanocobalamin 100 MCG UNK 07/16/2020 12:00:00 AM EST active Cyanocobalamin 100 MCG eCW1 ([facility]) calcium polycarbophil 625 MG Oral Tablet [FiberCon] Fi berCon 625 MG FiberCon 625 MG 07/16/2020 12:00:00 AM EST 2.0 {tablets_as_needed} active FiberCon 625 MG eCW1 ([facility]) Ergocalciferol 05959 UNT Oral Capsule Ergocalciferol 1 .25 MG (71885 UT) Ergocalciferol 1.25 MG (70244 UT) 07/16/2020 12:00:00 AM EST 1.0 {c apsule} active Ergocalciferol 1.25 MG (5 0000 UT) eCW1 ([facility]) 12 HR Guaifenesin 600 MG Extended Release Oral Tablet [Mucinex] Mucinex 600 MG Mucinex 600 MG 07/16/2020 12:00:00 AM EST 1.0 {tablet_as_needed} active Mucinex 600 MG eCW1 ([facility]) Fluocinolone Acetonide 0.1 MG/ML Topical Cream Fluocin olone Acetonide 0.01 % Fluocinolone Acetonide 0.01 % 07/16/2020 12:00:00 AM EST 1.0 {appli cation} active Fluocinolone Acetonide 0. 01 % eCW1 ([facility]) Cyanocobalamin 100 MCG UNK 07/16/2020 12:00:00 AM EST active Cyanocobalamin 100 MCG eCW1 ([facility]) Ergocalciferol 48984 UNT Oral Capsule Ergocalciferol 1 .25 MG (01492 UT) Ergocalciferol 1.25 MG (20237 UT) 07/16/2020 12:00:00 AM EST 1.0 {c apsule} active Ergocalciferol 1.25 MG (5 0000 UT) eCW1 ([facility]) Ergocalciferol 60223 UNT Oral Capsule Ergocalciferol 1 .25 MG (75439 UT) Ergocalciferol 1.25 MG (74081 UT) 07/16/2020 12:00:00 AM EST 1.0 {c apsule} active Ergocalciferol 1.25 MG (5 0000 UT) eCW1 ([facility]) Fluocinolone Acetonide 0.1 MG/ML Topical Cream Fluocin olone Acetonide 0.01 % Fluocinolone Acetonide 0.01 % 07/16/2020 12:00:00 AM EST 1.0 {appli cation} active Fluocinolone Acetonide 0. 01 % eCW1 ([facility]) Ergocalciferol 17601 UNT Oral Capsule Ergocalciferol 1 .25 MG (46760 UT) Ergocalciferol 1.25 MG (75738 UT) 07/16/2020 12:00:00 AM EST 1.0 {c apsule} active Ergocalciferol 1.25 MG (5 0000 UT) eCW1 ([facility]) Fluocinolone Acetonide 0.1 MG/ML Topical Cream Fluocin olone Acetonide 0.01 % Fluocinolone Acetonide 0.01 % 07/16/2020 12:00:00 AM EST 1.0 {appli cation} active Fluocinolone Acetonide 0. 01 % eCW1 ([facility]) Cyanocobalamin 100 MCG UNK 07/16/2020 12:00:00 AM EST active Cyanocobalamin 100 MCG eCW1 ([facility]) FiberCon 625 MG UNK 07/16/2020 12:00:00 AM EST 2.0 {tablets_ as_needed} active FiberCon 625 MG eCW1 ([facility]) Ergocalciferol 99113 UNT Oral Capsule Ergocalciferol 1 .25 MG (42266 UT) Ergocalciferol 1.25 MG (40511 UT) 07/16/2020 12:00:00 AM EST 1.0 {c apsule} active Ergocalciferol 1.25 MG (5 0000 UT) eCW1 ([facility]) Cyanocobalamin 100 MCG UNK 07/16/2020 12:00:00 AM EST active Cyanocobalamin 100 MCG eCW1 ([facility]) calcium polycarbophil 625 MG Oral Tablet [FiberCon] Fi berCon 625 MG FiberCon 625 MG 07/16/2020 12:00:00 AM EST 2.0 {tablets_as_needed} active FiberCon 625 MG eCW1 ([facility]) 12 HR Guaifenesin 600 MG Extended Release Oral Tablet [Mucinex] Mucinex 600 MG Mucinex 600 MG 07/16/2020 12:00:00 AM EST 1.0 {tablet_as_needed} active Mucinex 600 MG eCW1 ([facility]) Cyanocobalamin 100 MCG UNK 07/16/2020 12:00:00 AM EST active Cyanocobalamin 100 MCG eCW1 ([facility]) calcium polycarbophil 625 MG Oral Tablet [FiberCon] Fi berCon 625 MG FiberCon 625 MG 07/16/2020 12:00:00 AM EST 2.0 {tablets_as_needed} active FiberCon 625 MG eCW1 ([facility]) Fluocinolone Acetonide 0.1 MG/ML Topical Cream Fluocin olone Acetonide 0.01 % Fluocinolone Acetonide 0.01 % 07/16/2020 12:00:00 AM EST 1.0 {appli cation} active Fluocinolone Acetonide 0. 01 % eCW1 ([facility]) Ergocalciferol 85772 UNT Oral Capsule Ergocalciferol 1 .25 MG (36620 UT) Ergocalciferol 1.25 MG (93131 UT) 07/16/2020 12:00:00 AM EST 1.0 {c apsule} active Ergocalciferol 1.25 MG (5 0000 UT) eCW1 ([facility]) Fluocinolone Acetonide 0.1 MG/ML Topical Cream Fluocin olone Acetonide 0.01 % Fluocinolone Acetonide 0.01 % 07/16/2020 12:00:00 AM EST 1.0 {appli cation} active Fluocinolone Acetonide 0. 01 % [facility]) Fluocinolone Acetonide 0.1 MG/ML Topical Cream Fluocin olone Acetonide 0.01 % Fluocinolone Acetonide 0.01 % 07/16/2020 12:00:00 AM EST 1.0 {appli cation} active Fluocinolone Acetonide 0. 01 % [facility]) Cyanocobalamin 100 MCG UNK 07/16/2020 12:00:00 AM EST active Cyanocobalamin 100 MCG [facility] ([facility]) calcium polycarbophil 625 MG Oral Tablet [FiberCon] Fi berCon 625 MG FiberCon 625 MG 07/16/2020 12:00:00 AM EST 2.0 {tablets_as_needed} active FiberCon 625 MG [facility] ([facility]) Fluocinolone Acetonide 0.1 MG/ML Topical Cream Fluocin olone Acetonide 0.01 % Fluocinolone Acetonide 0.01 % 07/16/2020 12:00:00 AM EST 1.0 {appli cation} active Fluocinolone Acetonide 0. 01 % [facility] calcium polycarbophil 625 MG Oral Tablet [FiberCon] Fi berCon 625 MG FiberCon 625 MG 07/16/2020 12:00:00 AM EST 2.0 {tablets_as_needed} active FiberCon 625 MG [facility]) 12 HR Guaifenesin 600 MG Extended Release Oral Tablet [Mucinex] Mucinex 600 MG Mucinex 600 MG 07/16/2020 12:00:00 AM EST 1.0 {tablet_as_needed} active Mucinex 600 MG eCW1 ([facility]) 12 HR Guaifenesin 600 MG Extended Release Oral Tablet [Mucinex] Mucinex 600 MG Mucinex 600 MG 07/16/2020 12:00:00 AM EST 1.0 {tablet_as_needed} active Mucinex 600 MG eCW1 ([facility]) Cyanocobalamin 100 MCG UNK 07/16/2020 12:00:00 AM EST active Cyanocobalamin 100 MCG eCW1 [facility]) Ergocalciferol 69199 UNT Oral Capsule Ergocalciferol 1 .25 MG (18611 UT) Ergocalciferol 1.25 MG (38646 UT) 07/16/2020 12:00:00 AM EST 1.0 {c apsule} active Ergocalciferol 1.25 MG (5 0000 UT) eCW1 ([facility]) Cyanocobalamin 100 MCG UNK 07/16/2020 12:00:00 AM EST active Cyanocobalamin 100 MCG eCW1 ([facility]) 12 HR Guaifenesin 600 MG Extended Release Oral Tablet [Mucinex] Mucinex 600 MG Mucinex 600 MG 07/16/2020 12:00:00 AM EST 1.0 {tablet_as_needed} active Mucinex 600 MG eCW1 ([facility]) calcium polycarbophil 625 MG Oral Tablet [FiberCon] Fi berCon 625 MG FiberCon 625 MG 07/16/2020 12:00:00 AM EST 2.0 {tablets_as_needed} active FiberCon 625 MG eCW1 ([facility]) Cyanocobalamin 100 MCG UNK 07/16/2020 12:00:00 AM EST active Cyanocobalamin 100 MCG eCW1 ([facility]) Ergocalciferol 59543 UNT Oral Capsule Ergocalciferol 1 .25 MG (62493 UT) Ergocalciferol 1.25 MG (69094 UT) 07/16/2020 12:00:00 AM EST 1.0 {c apsule} active Ergocalciferol 1.25 MG (5 0000 UT) eCW1 ([facility]) Cyanocobalamin 100 MCG UNK 07/16/2020 12:00:00 AM EST active Cyanocobalamin 100 MCG eCW1 ([facility]) Cyanocobalamin 100 MCG UNK 07/16/2020 12:00:00 AM EST active Cyanocobalamin 100 MCG eCW1 ([facility]) Cyanocobalamin 100 MCG UNK 07/16/2020 12:00:00 AM EST active Cyanocobalamin 100 MCG eCW1 ([facility]) 12 HR Guaifenesin 600 MG Extended Release Oral Tablet [Mucinex] Mucinex 600 MG Mucinex 600 MG 07/16/2020 12:00:00 AM EST 1.0 {tablet_as_needed} active Mucinex 600 MG eCW1 ([facility]) 12 HR Guaifenesin 600 MG Extended Release Oral Tablet [Mucinex] Mucinex 600 MG Mucinex 600 MG 07/16/2020 12:00:00 AM EST 1.0 {tablet_as_needed} active Mucinex 600 MG eCW1 ([facility]) 12 HR Guaifenesin 600 MG Extended Release Oral Tablet [Mucinex] Mucinex 600 MG Mucinex 600 MG 07/16/2020 12:00:00 AM EST 1.0 {tablet_as_needed} active eCW1 ([facility]) Cyanocobalamin 100 MCG UNK 07/16/2020 12:00:00 AM EST active Cyanocobalamin 100 MCG eCW1 ([facility]) Fluocinolone Acetonide 0.1 MG/ML Topical Cream Fluocin olone Acetonide 0.01 % Fluocinolone Acetonide 0.01 % 07/16/2020 12:00:00 AM EST 1.0 {appli cation} active Fluocinolone Acetonide 0. 01 % [facility]CW1 [facility]) calcium polycarbophil 625 MG Oral Tablet [FiberCon] Fi berCon 625 MG FiberCon 625 MG 07/16/2020 12:00:00 AM EST 2.0 {tablets_as_needed} active FiberCon 625 MG eCW1 ([facility]) calcium polycarbophil 625 MG Oral Tablet [FiberCon] Fi berCon 625 MG FiberCon 625 MG 07/16/2020 12:00:00 AM EST 2.0 {tablets_as_needed} active FiberCon 625 MG eCW1 ([facility]) Fluocinolone Acetonide 0.1 MG/ML Topical Cream Fluocin olone Acetonide 0.01 % Fluocinolone Acetonide 0.01 % 07/16/2020 12:00:00 AM EST 1.0 {appli cation} active Fluocinolone Acetonide 0. 01 % eCW1 ([facility]) Fluocinolone Acetonide 0.1 MG/ML Topical Cream Fluocin olone Acetonide 0.01 % Fluocinolone Acetonide 0.01 % 07/16/2020 12:00:00 AM EST 1.0 {appli cation} active Fluocinolone Acetonide 0. 01 % eCW1 ([facility]) Fluocinolone Acetonide 0.1 MG/ML Topical Cream Fluocin olone Acetonide 0.01 % Fluocinolone Acetonide 0.01 % 07/16/2020 12:00:00 AM EST 1.0 {appli cation} active Fluocinolone Acetonide 0. 01 % eCW1 [facility]) Ergocalciferol 06043 UNT Oral Capsule Ergocalciferol 1 .25 MG (25902 UT) Ergocalciferol 1.25 MG (01123 UT) 07/16/2020 12:00:00 AM EST 1.0 {c apsule} active Ergocalciferol 1.25 MG (5 0000 UT) eCW1 ([facility]) Fluocinolone Acetonide 0.1 MG/ML Topical Cream Fluocin olone Acetonide 0.01 % Fluocinolone Acetonide 0.01 % 07/16/2020 12:00:00 AM EST 1.0 {appli cation} active Fluocinolone Acetonide 0. 01 % eCW1 ([facility]) Cyanocobalamin 100 MCG UNK 07/16/2020 12:00:00 AM EST active eCW1 ([facility]) Fluocinolone Acetonide 0.1 MG/ML Topical Cream Fluocin olone Acetonide 0.01 % Fluocinolone Acetonide 0.01 % 07/16/2020 12:00:00 AM EST 1.0 {appli cation} active Fluocinolone Acetonide 0. 01 % eCW1 [facility]) Ergocalciferol 21433 UNT Oral Capsule Ergocalciferol 1 .25 MG (66389 UT) Ergocalciferol 1.25 MG (28640 UT) 07/16/2020 12:00:00 AM EST 1.0 {c apsule} active Ergocalciferol 1.25 MG (5 0000 UT) eCW1 ([facility]) calcium polycarbophil 625 MG Oral Tablet [FiberCon] Fi berCon 625 MG FiberCon 625 MG 07/16/2020 12:00:00 AM EST 2.0 {tablets_as_needed} active FiberCon 625 MG eCW1 ([facility]) 12 HR Guaifenesin 600 MG Extended Release Oral Tablet [Mucinex] Mucinex 600 MG Mucinex 600 MG 07/16/2020 12:00:00 AM EST 1.0 {tablet_as_needed} active Mucinex 600 MG eCW1 ([facility]) Fluocinolone Acetonide 0.1 MG/ML Topical Cream Fluocin olone Acetonide 0.01 % Fluocinolone Acetonide 0.01 % 07/16/2020 12:00:00 AM EST 1.0 {appli cation} active Fluocinolone Acetonide 0. 01 % eCW1 ([facility]) Ergocalciferol 92278 UNT Oral Capsule Ergocalciferol 1 .25 MG (88659 UT) Ergocalciferol 1.25 MG (03462 UT) 07/16/2020 12:00:00 AM EST 1.0 {c apsule} active eCW1 ([facility]) Ergocalciferol 41266 UNT Oral Capsule Ergocalciferol 1 .25 MG (38492 UT) Ergocalciferol 1.25 MG (53792 UT) 07/16/2020 12:00:00 AM EST 1.0 {c apsule} active Ergocalciferol 1.25 MG (5 0000 UT) eCW1 ([facility]) Cyanocobalamin 100 MCG UNK 07/16/2020 12:00:00 AM EST active Cyanocobalamin 100 MCG eCW1 ([facility]) 12 HR Guaifenesin 600 MG Extended Release Oral Tablet [Mucinex] Mucinex 600 MG Mucinex 600 MG 07/16/2020 12:00:00 AM EST 1.0 {tablet_as_needed} active Mucinex 600 MG eCW1 ([facility]) 12 HR Guaifenesin 600 MG Extended Release Oral Tablet [Mucinex] Mucinex 600 MG Mucinex 600 MG 07/16/2020 12:00:00 AM EST 1.0 {tablet_as_needed} active Mucinex 600 MG eCW1 ([facility]) Fluocinolone Acetonide 0.1 MG/ML Topical Cream Fluocin olone Acetonide 0.01 % Fluocinolone Acetonide 0.01 % 07/16/2020 12:00:00 AM EST 1.0 {appli cation} active Fluocinolone Acetonide 0. 01 % eCW1 ([facility]) Cyanocobalamin 100 MCG UNK 07/16/2020 12:00:00 AM EST active Cyanocobalamin 100 MCG eCW1 ([facility]) Cyanocobalamin 100 MCG UNK 07/16/2020 12:00:00 AM EST active Cyanocobalamin 100 MCG eCW1 ([facility]) Fluocinolone Acetonide 0.1 MG/ML Topical Cream Fluocin olone Acetonide 0.01 % Fluocinolone Acetonide 0.01 % 07/16/2020 12:00:00 AM EST 1.0 {appli cation} active Fluocinolone Acetonide 0. 01 % eCW1 [facility]) Fluocinolone Acetonide 0.1 MG/ML Topical Cream Fluocin olone Acetonide 0.01 % Fluocinolone Acetonide 0.01 % 07/16/2020 12:00:00 AM EST 1.0 {appli cation} active Fluocinolone Acetonide 0. 01 % eCW1 [facility]) 12 HR Guaifenesin 600 MG Extended Release Oral Tablet [Mucinex] Mucinex 600 MG Mucinex 600 MG 07/16/2020 12:00:00 AM EST 1.0 {tablet_as_needed} active Mucinex 600 MG eCW1 ([facility]) calcium polycarbophil 625 MG Oral Tablet [FiberCon] Fi berCon 625 MG FiberCon 625 MG 07/16/2020 12:00:00 AM EST 2.0 {tablets_as_needed} active FiberCon 625 MG eCW1 ([facility]) Ergocalciferol 60931 UNT Oral Capsule Ergocalciferol 1 .25 MG (36637 UT) Ergocalciferol 1.25 MG (46124 UT) 07/16/2020 12:00:00 AM EST 1.0 {c apsule} active Ergocalciferol 1.25 MG (5 0000 UT) eCW1 ([facility]) Fluocinolone Acetonide 0.1 MG/ML Topical Cream Fluocin olone Acetonide 0.01 % Fluocinolone Acetonide 0.01 % 07/16/2020 12:00:00 AM EST 1.0 {appli cation} active Fluocinolone Acetonide 0. 01 % eCW1 [facility]) Ergocalciferol 86268 UNT Oral Capsule Ergocalciferol 1 .25 MG (86369 UT) Ergocalciferol 1.25 MG (84895 UT) 07/16/2020 12:00:00 AM EST 1.0 {c apsule} active Ergocalciferol 1.25 MG (5 0000 UT) eCW1 ([facility]) 12 HR Guaifenesin 600 MG Extended Release Oral Tablet [Mucinex] Mucinex 600 MG Mucinex 600 MG 07/16/2020 12:00:00 AM EST 1.0 {tablet_as_needed} active Mucinex 600 MG eCW1 ([facility]) Fluocinolone Acetonide 0.1 MG/ML Topical Cream Fluocin olone Acetonide 0.01 % Fluocinolone Acetonide 0.01 % 07/16/2020 12:00:00 AM EST 1.0 {appli cation} active Fluocinolone Acetonide 0. 01 % eCW1 [facility]) 12 HR Guaifenesin 600 MG Extended Release Oral Tablet [Mucinex] Mucinex 600 MG Mucinex 600 MG 07/16/2020 12:00:00 AM EST 1.0 {tablet_as_needed} active Mucinex 600 MG eCW1 ([facility]) calcium polycarbophil 625 MG Oral Tablet [FiberCon] Fi berCon 625 MG FiberCon 625 MG 07/16/2020 12:00:00 AM EST 2.0 {tablets_as_needed} active FiberCon 625 MG eCW1 ([facility]) Ergocalciferol 67172 UNT Oral Capsule Ergocalciferol 1 .25 MG (58464 UT) Ergocalciferol 1.25 MG (49263 UT) 07/16/2020 12:00:00 AM EST 1.0 {c apsule} active Ergocalciferol 1.25 MG (5 0000 UT) eCW1 ([facility]) Cyanocobalamin 100 MCG UNK 07/16/2020 12:00:00 AM EST active Cyanocobalamin 100 MCG eCW1 ([facility]) calcium polycarbophil 625 MG Oral Tablet [FiberCon] Fi berCon 625 MG FiberCon 625 MG 07/16/2020 12:00:00 AM EST 2.0 {tablets_as_needed} active FiberCon 625 MG eCW1 ([facility]) FiberCon 625 MG UNK 07/16/2020 12:00:00 AM EST 2.0 {tablets_ as_needed} active FiberCon 625 MG eCW1 ([facility]) calcium polycarbophil 625 MG Oral Tablet [FiberCon] Fi berCon 625 MG FiberCon 625 MG 07/16/2020 12:00:00 AM EST 2.0 {tablets_as_needed} active FiberCon 625 MG eCW1 ([facility]) calcium polycarbophil 625 MG Oral Tablet [FiberCon] Fi berCon 625 MG FiberCon 625 MG 07/16/2020 12:00:00 AM EST 2.0 {tablets_as_needed} active FiberCon 625 MG eCW1 [facility]) 12 HR Guaifenesin 600 MG Extended Release Oral Tablet [Mucinex] Mucinex 600 MG Mucinex 600 MG 07/16/2020 12:00:00 AM EST 1.0 {tablet_as_needed} active Mucinex 600 MG eCW1 ([facility]) Ergocalciferol 06818 UNT Oral Capsule Ergocalciferol 1 .25 MG (20467 UT) Ergocalciferol 1.25 MG (44250 UT) 07/16/2020 12:00:00 AM EST 1.0 {c apsule} active Ergocalciferol 1.25 MG (5 0000 UT) eCW1 ([facility]) FiberCon 625 MG UNK 07/16/2020 12:00:00 AM EST 2.0 {tablets_ as_needed} active FiberCon 625 MG eCW1 ([facility]) 12 HR Guaifenesin 600 MG Extended Release Oral Tablet [Mucinex] Mucinex 600 MG Mucinex 600 MG 07/16/2020 12:00:00 AM EST 1.0 {tablet_as_needed} active Mucinex 600 MG eCW1 ([facility]) Fluocinolone Acetonide 0.1 MG/ML Topical Cream Fluocin olone Acetonide 0.01 % Fluocinolone Acetonide 0.01 % 07/16/2020 12:00:00 AM EST 1.0 {appli cation} active Fluocinolone Acetonide 0. 01 % eCW1 [facility] calcium polycarbophil 625 MG Oral Tablet [FiberCon] Fi berCon 625 MG FiberCon 625 MG 07/16/2020 12:00:00 AM EST 2.0 {tablets_as_needed} active FiberCon 625 MG eCW1 ([facility]) Ergocalciferol 33526 UNT Oral Capsule Ergocalciferol 1 .25 MG (64339 UT) Ergocalciferol 1.25 MG (87754 UT) 07/16/2020 12:00:00 AM EST 1.0 {c apsule} active Ergocalciferol 1.25 MG (5 0000 UT) eCW1 ([facility]) torsemide 20 MG Oral Tablet Torsemide 06/02/2020 12:00:00 AM EST ORAL completed MEDENT ([facility]) Glucagon 1 MG Injection Glucagon Emergency Kit For Low Blood Sugar 01/31/2020 12:00:00 AM EDT active M EDENT ([facility]) Basaglar Kwikpen Basaglar Kwikpen 01/31/2020 12:00:00 AM EDT active [facility] ([facility]) Calcitriol 0.63840 MG Oral Capsule Calcitriol 01/31/2020 12:00:00 AM EDT ORAL active [facility] ([facility]) pregabalin 100 MG Oral Capsule [Lyrica] Lyrica 01/31/2020 12:00:0 0 AM EDT ORAL active [facility]ENT ([facility]) Vitamin B 12 0.1 MG Oral Tablet Vitamin B-12 01/31/2020 12:00:00 AM E DT ORAL active MEDENT ([facility]) Insurance Providers Payer name Policy type / Coverage type Policy ID Covered green party ID Covered green party's relationship to horan Policy Horan Plan Information [employer] Commercial [id number] 2..1. [id number] Self [id number] [employer] Commercial [id number] 2..1. [id number] Self [id number] [employer] Commercial [id number] 2..1. [id number] Self [id number] [employer] Commercial [id number] 2.84.1. 412553.3.227.99.572.53590.0 Self [id number] [employer] Commercial [id number] Self [id number] [employer] Commercial [id number] Self [employer] Commercial [id number] 2.16.840.1. 545745.3.227.99.572.46877.0 Self [id number] [employer] Commercial [id number] 2.16.840.1. 164788.3.227.99.572.67696.0 Self [id number] MEDICARE [id number] A [employer] Commercial [id number] 2.16.840.1. 566569.3.227.99.572.54294.0 Self [id number] [employer] Commercial [id number] 2.16.840.1. 206071.3.227.99.572.55791.0 Self [id number] [employer] Commercial [id number] 2.16.840.1. 926222.3.227.99.572.94101.0 Self [id number] [employer] Commercial [id number] 2.16.840.1.357784.3.227.99.177.1 7103.0 Self [id number] [employer] Option Medigap Part B [id number] 2.16.840.1.368818.3.227.99.991.67406.0 Self [id number] [employer] Option Medigap Part B [id number] 2.16.840.1.931930.3.227.99.991.00818.0 Self 0 [id number] [employer] Option Medigap Part B [id number] 2.16.840.1.421795.3.227.99.991.04289.0 Self 0 [id number] [employer] Option Medigap Part B [id number] 2.16.840.1.155736.3.227.99.991.32684.0 Self 0 [id number] [employer] Option Medigap Part B [id number] 2.16.840.1.552276.3.227.99.991.58306.0 Self 0 [id number] [employer] Option Medigap Part B [id number] 2.16.840.1.879576.3.227.99.991.54200.0 Self 0 [id number] [employer] Option Medigap Part B [id number] 2.16.840.1.101539.3.227.99.991.44352.0 Self 0 [id number] [employer] Option Medigap Part B [id number] 2.16.840.1.189692.3.227.99.991.16939.0 Self 0 [id number] Amer [employer] Option Medigap Part B [id number] 2.16.840.1.854584.3.227.99.991.87184.0 Self [id number] [employer] Ppo Commercial [id number] 2.16.840.1.026888.3.2 27.99.572.57012.0 Self [id number] [employer] Ppo Commercial [id number] 2.16.840.1.097822.3.2 27.99.572.31941.0 Self [id number] [employer] Ppo Commercial [id number] 2.16.840.1.179819.3.2 27.99.572.26269.0 Self [id number] [employer] Ppo Commercial [id number] 2.16.840.1.257295.3.2 27.99.572.05143.0 Self [id number] [employer] Ppo Commercial [id number] 2.16.840.1.363448.3.2 27.99.572.99268.0 Self [id number] [employer] Ppo Commercial [id number] 2.16.840.1.333796.3.2 27.99.572.37918.0 Self [id number] [employer] Ppo Commercial [id number] 2.16.840.1.127156.3.2 27.99.572.26046.0 Self [id number] [employer] Ppo Commercial [id number] 2.16.840.1.185023.3.2 27.99.572.55909.0 Self [id number] [employer]po Commercial [id number] 2.16.840.1.142197.3.2 27.99.572.29837.0 Self [id number] [employer] Commercial [id number] Self [id number] [employer] Ppo Commercial [id number] Self [employer] Medigap Part B [id number] 2.16.840.1.457167.3.227. 99.991.35141.0 Self [id number] [employer] Commercial [id number] 2.16.840.1.955113.3.227.99.991.5 6975.0 Self [id number] [employer] [id number] SP [id number] [employer] [id number] SP [id number] ANSI-Medicare Part B [id number] [facility] Maintenance [facility] ( O) [id number] ANSI-Medicare Part B [id number] ANS-Health Maintenance Organization ( O) [id number] ANS-Health Maintenance Organization ( O) [id number] ANSI-Medicare Part B [id number] [employer] Commercial [id number] 2.16.840.1.045918.3.227.99.991.858759.0 Self [id number] ANSI-Medicare Part B [id number] ANSI-Health Maintenance Organization ( O) [id number] ANSI-Health Maintenance Organization ( O) [id number] ANSI-Medicare Part B [id number] ANS-Health Maintenance Organization ( O) [id number] ANSI-Medicare Part B [id number] [facility]-Health Maintenance Organization ( O) [id number] ANSI-Medicare Part B [id number] [employer] Commercial [id number] 2.16.840.1.680479.3.227.99.991.30399.0 Self [id number] [employer] Commercial [id number] 2.16.840.1.208468.3.227.99.991.28087.0 Self [id number] ANS-Health Maintenance Organization ( O) [id number] ANSI-Medicare Part B [id number] ANSI-Medicare Part B [id number] [facility]-Health Maintenance Organization ( O) [id number] ANSI-Medicare Part B [id number] [facility]-Health Maintenance Organization ( O) [id number] [employer] Commercial [id number] ..840.1.092408.3.227.99.991.968627.0 Self [id number] ANSI-Medicare Part B [id number] ANS-Health Maintenance Organization ( O) [id number] [employer] MCR - To Ppo Commercial [id number] 2.16.840.1.576098.3.227.99.572.98909.0 Self [id number] [employer] MCR - To Ppo Commercial [id number] 2.16.840.1.986495.3.227.99.572.22461.0 Self [id number] ANSI-Medicare Part B [id number] ANSI-Health Maintenance Organization ( O) [id number] ANS-Health Maintenance Organization ( O) [id number] ANSI-Medicare Part B [id number] ANSI-Health Maintenance Organization ( O) [id number] ANSI-Medicare Part B [id number] ANSI-Health Maintenance Organization ( O) [id number] ANSI-Medicare Part B [id number] ANS-Health Maintenance Organization ( O) [id number] ANSI-Medicare Part B [id number] ANSI-Health Maintenance Organization ( O) [id number]-8x96-11mj-0k102o893585 ANSI-Medicare Part B 65x43hma-9721-8df9-n843-9kl301wp1x36 97j91gkt-9400-0mf5-b237-0li087gz1s84 ANSI-Medicare Part B bk5agkm2-0pdz-2018-ib56-0t349d53y248 mw2rqik0-2baz-6494-yn00-2g869j77h497 [facility]-Health Maintenance Organization ( O) 4oh4894k-l677-7316-y1fx-6713604u1056 1nn6676i-j945-3019-k8uj-9297221n4107 Today's Option Commercial [id number] 2939.0 Self [id number] [employer] Commercial [id number] Self [id number] [facility]-Health Maintenance Organization ( O) 9tqp3538-5unc-17ry-944c-57w911219mm1 2djb8482-2fme-43wx-748r-29x784829mb6 ANSI-Medicare Part B [id number]3283x157hf0 g19050o6-97s5-0t08-0088-18017d734em2 [facility]-Health Maintenance Organization ( O) 9odvs120-pfu2-86m1-u220-7539wbatme92 4anrd289-kum5-59r1-k981-7428vahcfu07 ANSI-Medicare Part B dkg6c752-v69j-496i-dz88-t07mb8cc4x1j ien1e073-z81j-474j-fg80-q51qg6aj1v0e [facility] Commercial [id number] Self [id number] ANSI-Medicare Part B qfvyw6n7-oz07-5713-yw45-50t542ds69a1 pebjn1e3-la20-5426-lr07-67r728yg79p6 ANSI-Health Maintenance Organization ( O) [id number]-b0g7-6w2m-x40z-[id number] [id number]-v2d0-6b6x-f54b-pw3z384370j9 [facility]-Health Maintenance Organization ( O) 9813530s-0573-3n9s-564j-830p96o02954 2410993m-5555-3w1o-870r-223l48c68348 ANSI-Medicare Part B [id number]-0357-9ngg-atqo-802k3p17d6f1 0m3801pf-4747-0dvu-fnee-163y2q64i3t3 ANSI-Medicare Part B x0r13s51-us25-5auu-aw34-5zal4b93e8bu w5d30q63-ne09-2aza-ar88-4sps0p79j6ec [facility]-Health Maintenance Organization ( O) 5d029k8l-u51b-7e10-qskt-7qut31839526 7j515k3k-n43f-6u07-qbve-2hqf87144495 ANSI-Medicare Part B t3i5r5p7-8ajv-79z1-b35t-7x5zz2pu1215 g4y9v7z3-6krx-89v9-u05j-6m5eh6js7848 ANSI-Health Maintenance Organization (HM O) 09l97487-k6ym-7otl-pl24-050325m525n3 00f43732-n2rf-0kso-pg82-954406r249v7 ANSI-Health Maintenance Organization ( O) 89di6818-htx4-2v4s-94q2-e179854axcf0 08eg1242-cdo5-0d3f-19k3-d482852ycvm0 ANSI-Medicare Part B 711c4nyn-r1n6-5l75-e8xg-26m51fq66x3v 224l2zwg-t7f1-8r59-f4to-59p30pg07r1r [employer] [id number] SP [id number] [employer] OPTIONS [id number] SP [id number] ANSI-Medicare Part B 9x27c2z5-61xn-59j4-j90s-434ee18pv129 8u32t4i0-01hx-72b2-w78k-936zb67eh199 ANSI-Medicare Part B 975840zz-326p-270n-c7j7-717628p7y110 002113ui-061p-942i-h0c8-071974i6r529 ANSI-Medicare Part B 03g94g96-lih2-2812-7e54-v8367078914h 48u56p16-ary4-4430-1a22-r1700630183k ANSI-Medicare Part B 0v84m2xb-10ja-3821-q15s-a3qy483h677o 0m06y6vb-28lx-7906-y74f-s3cq933o483q ANSI-Medicare Part B j02m4309-7k85-57c7-592s-yo88m6ojrbz6 i25a4339-1e45-51q1-853m-sh73e9gwadg3 Today's Option Commercial [id number] 2939.0 Self [id number] ANSI-Medicare Part B s0pqk93c-d0u4-4qd1-779w-c6015972p1s3 w7jbz15c-g7x8-6qv8-420w-g5612159i7z9 ANSI-Medicare Part B o1e6d5i1-241b-93a2-127r-g2t27194h660 y3f6h8h6-557b-75k0-101j-b0h31299c556 ANSI-Medicare Part B 38v49m2t-43i9-6r28-3193-5p586rz01wk2 44b83q3g-64v1-2u80-2139-8m135rm91jx6 ANSI-Medicare Part B wa14f550-xc25-2810-y0gu-bq541bhwe212 zj16n492-yw92-9969-p2rd-rf582esdr487 ANSI-Medicare Part B 0s8cg0ku-n726-17w1-ej25-r11470ar1b4s 6j9rw0sb-h717-64g9-lf44-j76808lu9v4s ANSI-Medicare Part B t8s5a5he-4f49-5x09-p6c5-xm145310ugu7 [id number] ANSI-Medicare Part B [id number] ANSI-Medicare Part B [id number] ANSI-Medicare Part B [id number] ANSI-Medicare Part B [id number] TODAYS OPTIONS [id number] SP [id number] ANSI-Medicare Part B [id number] ANSI-Medicare Part B [id number] ANSI-Medicare Part B [id number] Today's Option Commercial [id number] 2939.0 Self [id number] ANSI-Medicare Part B [id number] ANSI-Medicare Part B [id number] ANSI-Medicare Part B [id number] ANSI-Medicare Part B [id number] ANSI-Medicare Part B [id number] ANSI-Medicare Part B [id number] ANSI-Medicare Part B [id number] ANSI-Medicare Part B [id number] ANSI-Medicare Part B [id number] Today's Option Commercial [id number] 2939.0 Self [id number] TODAYS OPTIONS/PUERTO RICAN O [id number] S [id number] Today's Option Commercial [id number] 2939.0 Self [id number] Today's Option Commercial [id number] 2939.0 Self [id number] [facility] Medigap Part B [id number] Self [id number] TODAYS OPTIONS [id number] SP [id number] TODAYS OPTIONS [id number] SP [id number] [facility] Medigap Part B [id number] Self TODAYS OPTION -O/P [id number] 18 0 [id number] TODAYS OPTIONS/PUERTO RICAN P [id number] S [id number] ANSI-Medicare Part B [id number] MEDICARE [id number] SP [id number] [employer] O [id number] S [id number] Wellcare MCR - To Ppo Commercial [id number] Self [id number] [place] Medigap Part B [id number] Self [id number] ANSI-Medicare Part B [id number] ANSI-Health Maintenance Organization ( O) [id number] ANSI-Medicare Part B [id number] ANSI-Health Maintenance Organization ( O) [id number] ANSI-Medicare Part B [id number] ANSI-Health Maintenance Organization ( O) [id number] ANSI-Health Maintenance Organization ( O) [id number] ANSI-Medicare Part B [id number] ANSI-Medicare Part B [id number] ANSI-Health Maintenance Organization ( O) [id number] ANSI-Medicare Part B [id number] ANSI-Health Maintenance Organization ( O) [id number] ANSI-Medicare Part B [id number] [facility]-Health Maintenance Organization ( O) [id number] ANSI-Medicare Part B [id number] [facility]-Health Maintenance Organization (HM O) [id number] [facility] [id number] [facility] [id number] ANSI-Medicare Part B [id number] ANS-Health Maintenance Organization ( O) [id number] ANSI-Health Maintenance Organization ( O) [id number] ANSI-Medicare Part B [id number] ANSI-Medicare Part B [id number] [facility] ( O) [id number] ANSI-Medicare Part B [id number] [facility]-Health Maintenance Organization ( O) [id number] ANSI-Medicare Part B [id number] ANSI-Health Maintenance Organization ( O) [id number] ANSI-Medicare Part B [id number] ANS-Health Maintenance Organization ( O) [id number] ANSI-Health Maintenance Organization ( O) [id number] ANSI-Medicare Part B [id number] ANS-Health Maintenance Organization ( O) [id number] ANSI-Medicare Part B [id number] Problems, Conditions, and Diagnoses Code Display Name Description Problem Type Effective Dates Data Source(s) C61 Malignant tumor of prostate Malignant neoplasm of pros multani Problem 12/16/2020 12:00:00 AM EDT [facility] C61 [id number] Prostate cancer Problem 11/23/2020 12:00:00 AM EDT eCW1 [facility]) [id number] Dyspnea Dyspnea Problem 07/13/2020 12:00:00 AM IVANNA BURRELL ([facility]) G47.33 Obstructive sleep apnea syndrome Obstructive sle ep apnea syndrome Problem 07/13/2020 12:00:00 AM RJ BURRELL ([facility] ) R06.02 Dyspnea Dyspnea Problem 07/13/2020 12:00:00 AM ES T MEDENT ([facility], ) I48.91 Atrial fibrillation Atrial fibrillation Problem 1 06/29/2019 12:00:00 AM EST [facility]CW[facility]) I48.2 Chronic atrial fibrillation Chronic atrial fibrillatio n Problem 04/06/2020 12:00:00 AM EST eCW1 [facility]) Z79.01 Long-term current use of anticoagulant L angi term (current) use of anticoagulants Problem 03/31/2020 12:00:00 AM EST eCW1 ([facility]) Surgeries/Procedures Procedure Description Date Indications Data Source(s) OFFICE OUTPATIENT VISIT 15 MINUTES 02/09/2021 12:00:00 AM EDT MEDENT ([facility]) OFFICE OUTPATIENT VISIT 15 MINUTES 11/09/2020 12:00:00 AM EDT MEDENT ([facility]) OFFICE OUTPATIENT VISIT 25 MINUTES 11/01/2020 12:00:00 AM EDT MEDENT ([facility], ) Spirometry 10/12/2020 12:00:00 AM EDT M EDENT ([facility]) OFFICE OUTPATIENT VISIT 25 MINUTES 10/12/2020 12:00:00 AM EDT MEDENT ([facility], ) ECG ROUTINE ECG W/LEAST 12 LDS W/I&R 08/08/2020 12:00: 00 AM EDT MEDENT ([facility]) OFFICE OUTPATIENT VISIT 25 MINUTES 08/08/2020 12:00:00 AM EDT MEDENT ([facility]) OFFICE OUTPATIENT VISIT 15 MINUTES 07/13/2020 12:00:00 AM EST MEDENT ([facility], ) ECHO TTHRC R-T 2D W/WOM-MODE COMPL SPEC&COLR DOP 03/08 12:00:00 AM EDT MEDENT ([facility]) ECG ROUTINE ECG W/LEAST 12 LDS W/I&R 02/01/2020 12:00: 00 AM EDT MEDENT ([facility]) ARTHROCENTESIS ASPIR&/INJECTION MAJOR JT/BURSA 020 12:00:00 AM EDT MEDENT ([facility] ) Results ID Date Data Source [id number] 02/02/2021 01:34:00 PM EDT [facility] Name Value Range Interpretation Code Description Data Shannon rce(s) Supporting Document(s) Magnesium [Mass/volume] in Serum or Plasma 2.3 mg/dL 1.8-2.4 MEDENT ([facility]) <content>note:<nlbl:demographic_changed> </content>
<content></content> ID Date Data Source [id number] 02/02/2021 01:34:00 PM EDT MEDENT ([facility]) Name Value Range Interpretation Code Description Data Shannon rce(s) Supporting Document(s) Blood Urea Nitrogen 66 mg/dL 7-18 MEDENT ([facility]) Glucose, Fasting 100 mg/dL 70-100 MED[facility] ([facility]) Glomerular Filtration Rate 32.4 MED ENT ([facility]) <content>Units are mL/min/1.73 m2</content>
<content></content>
<content>Chronic Kidney Disease Staging per NKF:</content>
<content></content>
<content>Stage I & II GFR >=60 Normal to Mildly Decreased</content>
<content>Stage III GFR 30- 59 Moderately Decreased</content>
<content>Stage IV GFR 15-29 Severely Decreased</content>
<content>Stage V GFR <15 Very Little GFR Left</content>
<content>ESRD GFR <15 on FLATBED DRIVER</content>
<content></content> Creatinine For GFR 2.12 mg/dL 0.70-1.30 MEDENT ([facility]) Sodium Level 140 meq/L 136-145 MED[facility] ([facility]) Potassium Serum 5.0 meq/L 3.5-5.1 MED[facility] ([facility]) Carbon Dioxide Level 32 meq/L 21-32 MEDENT ([facility]) Chloride Level 102 meq/L 98-107 [facility] Anion Gap 6 meq/L 8-16 MEDENT ([facility]) Calcium Level 8.1 mg/dL 8.8-10.2 MEDENT ([facility]) ID Date Data Source 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 11/18/2020 12:00:00 AM EDT eC W1 [facility]) Name Value Range Interpretation Code Description Data Shannon rce(s) Supporting Document(s) URINE eCW1 ([facility]) ID Date Data Source URINE CULTURE 11/18/2020 12:00:00 AM EDT eCW1 ([facility]) Name Value Range Interpretation Code Description Data Shannon rce(s) Supporting Document(s) URINE CULTURE eCW1 [facility]) ID Date Data Source UA URINALYSIS 11/18/2020 12:00:00 AM EDT eCW1 ([facility]) Name Value Range Interpretation Code Description Data Shannon rce(s) Supporting Document(s) UA URINALYSIS eCW1 ([facility]) ID Date Data Source [id number] 11/08/2020 08:19:00 AM EDT MEDENT ([facility]) Name Value Range Interpretation Code Description Data Shannon rce(s) Supporting Document(s) Magnesium Level 2.10 MEDENT ([facility]) ID Date Data Source [id number] 11/08/2020 08:19:00 AM EDT MEDENT ([facility]) Name Value Range Interpretation Code Description Data Shannon rce(s) Supporting Document(s) White Blood Count 7.3 5.0-10.0 MEDENT ([facility]) Red Blood Count 3.83 4.70-6.10 [facility] Platelets 167 172-450 [facility] Hemoglobin 11.9 14.0-18.0 [facility] ([facility]) Hematocrit 38.0 42.0-52.0 MED[facility] ([facility]) ID Date Data Source [id number] 11/08/2020 08:19:00 AM EDT MEDENT ([facility]) Name Value Range Interpretation Code Description Data Shannon rce(s) Supporting Document(s) Calcium [Mass/volume] in Serum or Plasma 8.6 MEDENT ([facility]) Carbon dioxide, total [Moles/volume] in Serum or Plasma 30.3 MEDENT ([facility]) Chloride [Moles/volume] in Serum or Plasma 100 MEDENT ([facility]) Sodium 137.4 MEDENT ([facility] Glucose 116 70-106 MEDENT ([facility] Potassium [Moles/volume] in Serum or Plasma 4.42 MEDENT ([facility]) Blood Urea Nitrogen 47.5 7-18 MEDENT (Ca [facility]) Glomerular filtration rate/1.73 sq M.pre dicted [Volume Rate/Area] in Serum or Plasma by Creatinine-based formula (MDRD) 39 [facility] [place] Creatinine 1.7 0.55-1.3 [facility] [place] ID Date Data Source [id number] 11/08/2020 10:06:00 AM EDT [facility] Name Value Range Interpretation Code Description Data Shannon rce(s) Supporting Document(s) Trich vag by LEONARDA [facility] TESTS RESULT FLAG UNI TS REF RANGE LAB Trich vag by LEONARDA Negative (Negative) 01 FLAG LEGEND: L-Low Normal,H-High Normal,LL-Alert Low,HH-Alert High <-Panic Low,>-Panic High,A-Abnormal,AA-Critical Abnormal Performed at:01 RN [facility] [address] [address] Nathaly Cobian MD, ID Date Data Source [id number] 11/03/2020 10:13:00 AM EDT [facility] Name Value Range Interpretation Code Description Data Shannon rce(s) Supporting Document(s) Magnesium [Mass/volume] in Serum or Plasma 2.5 mg/dL 1.8-2.4 MEDENT ([facility]) <content>note:<nlbl:demographic_changed> </content>
<content></content> ID Date Data Source [id number] 11/03/2020 10:13:00 AM EDT [facility] Name Value Range Interpretation Code Description Data Shannon rce(s) Supporting Document(s) Triglycerides Level 121 mg/dL MEDENT ([facility]) Cholesterol Level 126 mg/dL MED[facility] ([facility]) HDL Cholesterol 39 mg/dL MED[facility] ([facility]) LDL Cholesterol 63 mg/dL MED[facility] ([facility]) Non-HDL-C 87 mg/dL [facility] Cholesterol Risk Ratio 3.230 MEDENT ([facility]) ID Date Data Source [id number] 11/03/2020 10:13:00 AM EDT [facility] Name Value Range Interpretation Code Description Data Shannon rce(s) Supporting Document(s) Creatinine For GFR 1.88 mg/dL 0.70-1.30 MEDENT ([facility]) Blood Urea Nitrogen 64 mg/dL 7-18 MED[facility] ([facility]) Glucose, Fasting 123 mg/dL 70-100 MEDENT ([facility]) Potassium Serum 4.2 meq/L 3.5-5.1 MED[facility] ([facility]) Glomerular Filtration Rate 37.2 MED ENT ([facility]) <content>Units are mL/min/1.73 m2</content>
<content></content>
<content>Chronic Kidney Disease Staging per NKF:</content>
<content></content>
<content>Stage I & II GFR >=60 Normal to Mildly Decreased</content>
<content>Stage III GFR 30- 59 Moderately Decreased</content>
<content>Stage IV GFR 15-29 Severely Decreased</content>
<content>Stage V GFR <15 Very Little GFR Left</content>
<content>ESRD GFR <15 on FLATBED DRIVER</content>
<content></content> Sodium Level 137 meq/L 136-145 MEDENT ([facility]) Chloride Level 101 meq/L 98-107 MEDENT ([facility]) Calcium Level 7.9 mg/dL 8.8-10.2 MEDENT ([facility]) Carbon Dioxide Level 31 meq/L 21-32 MEDENT ([facility]) Anion Gap 5 meq/L 8-16 MED[facility] ([facility]) Alt/SGPT 24 U/L 12-78 MED[facility] ([facility]) Ast/Sgot 22 U/L 7-37 MED[facility] ([facility]) Alkaline Phosphatase 91 U/L 45-117 MEDENT ([facility]) Bilirubin,Total 0.5 mg/dL 0.2-1.0 MEDENT ([facility]) Total Protein 6.6 GM/DL 6.4-8.2 MED[facility] ([facility]) Albumin/Globulin Ratio 0.8 MEDENT ([facility]) Albumin 3.0 GM/DL 3.2-5.2 MED[facility] ([facility]) ID Date Data Source [id number] 10/12/2020 02:03:00 PM EDT MEDENT ([facility], ) Name Value Range Interpretation Code Description Data Shannon rce(s) Supporting Document(s) PDFReport Laboratory test result MEDENT ([facility], ) FVC-Pred 3.66 L MEDENT ([facility], ) FVC-%Pred-Pre 50 L MEDENT ([facility], ) FVC-Pre 1.83 L MEDENT ([facility], ) Fev1-Pre 1.24 L MEDENT ([facility], ) FVC-LLN 2.80 L MEDENT ([facility], ) Fev1-Pred 2.61 L MEDENT ([facility], ) Fev1-LLN 1.89 L MEDENT ([facility], ) Fev1-%Pred-Pre 47 L MEDENT ([facility], ) Fev6-Pred 3.41 L MEDENT ([facility], ) Fev6-Pre 1.76 L MEDENT ([facility]) Fev6-%Pred-Pre 51 L MEDENT ([facility], ) Fev6-LLN 2.57 L MEDENT ([facility], ) Rww5laq-Cga 68 % MEDENT ([facility]) Jgh6cgj-Pizd 72 % MEDENT ([facility]) Lip6arf-BRR 62 % MEDENT ([facility]) Ncl0wbj-%Pred-Pre 93 % MEDENT ([facility]) Sro8pah-%Pred-Pre 103 % MEDENT ([facility]) Gsh1eyx-Pplv 93 % MEDENT ([facility], ) Eco2dsu-Utm 96 % MEDENT ([facility]) FEFMax-Pred 6.94 L/E/sec MEDENT ([facility], ) FEFMax-Pre 2.37 L/E/sec MEDENT ([facility], ) FEFMax-%Pred-Pre 34 L/E/sec MEDENT ([facility]) Iso6469-Gpwr 1.85 L/E/sec MEDENT ([facility]) FEFMax-LLN 4.81 L/E/sec MEDENT ([facility]) Egq0377-Jam 0.65 L/E/sec MEDENT ([facility]) Tzo5783-%Pred-Pre 35 L/E/sec MEDENT ([facility]) Rld3653-YSO 0.38 L/E/sec MEDENT ([facility]) Oyw2dxx2-Ynpy 77 % MEDENT ([facility]) ExpTime-Pre 7.08 sec MEDENT ([facility]) Hwh2umx1-%Pred-Pre 91 % MEDENT ([facility]) Mtq1ank1-TOR 68 % MEDENT ([facility]) Nmc0bxs7-Pjr 70 % MEDENT ([facility]) ID Date Data Source Basic Metabolic Profile (BMP) 08/11/2020 12:00:00 AM EDT eCW 1 [facility]) Name Value Range Interpretation Code Description Data Shannon rce(s) Supporting Document(s) 75 70-100 GLUCOSE, FASTING eCW1 ([facility]) 53 7-18 BLOOD UREA NITROGEN eCW1 ([facility]) 39.4 >42 GLOMERULAR FILTRATION RATE eCW 1 ([facility]) 142 136-145 SODIUM LEVEL eCW1 ([facility]) 1.79 0.70-1.30 CREATININE FOR GFR eCW1 ([facility]) 4.7 3.5-5.1 POTASSIUM SERUM eCW1 ([facility]) 35 21-32 CARBON DIOXIDE LEVEL eCW1 ([facility]) 103 98-107 CHLORIDE LEVEL eCW1 ([facility]) 8.2 8.8-10.2 CALCIUM LEVEL eCW1 ([facility]) ID Date Data Source CBC - Complete Blood Count 08/11/2020 12:00:00 AM EDT eCW1 [facility] Name Value Range Interpretation Code Description Data Shannon rce(s) Supporting Document(s) 7.5 4.0-10.0 WHITE BLOOD COUNT eCW1 ([facility]) 3.99 4.30-6.10 RED BLOOD COUNT eCW1 ([facility]) 42.1 42.0-52.0 HEMATOCRIT eCW1 ([facility]) 12.7 13.5-17.5 HEMOGLOBIN eCW1 ([facility]) 105.5 80.0-96.0 MEAN CORPUSCULAR VOLUME e CW1 ([facility]) 14.1 11.5-14.5 RED CELL DISTRIBUTION WID TH eCW1 ([facility]) 31.8 27.0-33.0 MEAN CORPUSCULAR HEMOGLOB IN eCW1 ([facility]) 30.2 32.0-36.5 MEAN CORPUSCULAR HGB CONC eCW1 ([facility]) 169 150-450 PLATELET COUNT, AUTOMATED eCW1 ([facility]) ID Date Data Source NT-PRO BNP 08/11/2020 12:00:00 AM EDT eCW1 ([facility]) Name Value Range Interpretation Code Description Data Shannon rce(s) Supporting Document(s) [phone] NT-PRO BNP eCW1 ([facility]) ID Date Data Source [id number] 08/02/2020 01:54:00 PM EDT MEDENT ([facility]) Name Value Range Interpretation Code Description Data Shannon rce(s) Supporting Document(s) Glucose, Fasting 141 mg/dL 70-100 MEDENT ([facility]) Blood Urea Nitrogen 57 mg/dL 7-18 [facility] ([facility]) Creatinine For GFR 1.87 mg/dL 0.70-1.30 MED[facility] ([facility]) Glomerular Filtration Rate 37.5 MED ENT ([facility]) <content>Units are mL/min/1.73 m2</content>
<content></content>
<content>Chronic Kidney Disease Staging per [facility]:</content>
<content></content>
<content>Stage I & II GFR >=60 Normal to Mildly Decreased</content>
<content>Stage III GFR 30- 59 Moderately Decreased</content>
<content>Stage IV GFR 15-29 Severely Decreased</content>
<content>Stage V GFR <15 Very Little GFR Left</content>
<content>ESRD GFR <15 on FLATBED DRIVER</content>
<content></content> Sodium Level 141 meq/L 136-145 [facility] ([facility]) Potassium Serum 4.4 meq/L 3.5-5.1 [facility] ([facility]) Chloride Level 104 meq/L 98-107 [facility] ([facility]) Carbon Dioxide Level 33 meq/L 21-32 MED[facility] ([facility]) Anion Gap 4 meq/L 8-16 [facility] Calcium Level 8.5 mg/dL 8.8-10.2 [facility] ([facility]) ID Date Data Source [id number] 07/21/2020 12:32:00 PM EST [facility] ([facility]) Name Value Range Interpretation Code Description Data Shannon rce(s) Supporting Document(s) Natriuretic peptide.B prohormone N-Terminal [Mass/volu me] in Serum or Plasma 303 [facility] ([facility]) ID Date Data Source [id number] 07/14/2020 11:20:00 AM EST [facility] Name Value Range Interpretation Code Description Data Shannon rce(s) Supporting Document(s) SARS-CoV-2 (COVID 19) NEGATIVE - SARS-CoV-2 (COVID19) [facility] This lab was ordered by [facility] a nd reported by [facility]. ID Date Data Source [id number] 04/28/2020 02:44:00 PM EST MEDENT ([facility]) Name Value Range Interpretation Code Description Data Shannon rce(s) Supporting Document(s) Magnesium [Mass/volume] in Serum or Plasma 2.5 mg/dL 1.8-2.4 MEDENT ([facility]) <content>note:<nlbl:demographic_changed> </content>
<content></content> ID Date Data Source [id number] 04/28/2020 02:44:00 PM EST MEDENT ([facility]) Name Value Range Interpretation Code Description Data Shannon rce(s) Supporting Document(s) Glucose, Fasting 83 mg/dL 70-100 [facility] ([facility]) Blood Urea Nitrogen 53 mg/dL 7-18 MEDENT ([facility]) Creatinine For GFR 1.89 mg/dL 0.70-1.30 MEDENT ([facility]) Glomerular Filtration Rate 37.0 MED ENT ([facility]) <content>Units are mL/min/1.73 m2</content>
<content></content>
<content>Chronic Kidney Disease Staging per NKF:</content>
<content></content>
<content>Stage I & II GFR >=60 Normal to Mildly Decreased</content>
<content>Stage III GFR 30- 59 Moderately Decreased</content>
<content>Stage IV GFR 15-29 Severely Decreased</content>
<content>Stage V GFR <15 Very Little GFR Left</content>
<content>ESRD GFR <15 on FLATBED DRIVER</content>
<content></content> Sodium Level 140 meq/L 136-145 MEDENT ([facility]) Carbon Dioxide Level 33 meq/L 21-32 MEDENT ([facility]) Chloride Level 103 meq/L 98-107 MEDENT ([facility]) Potassium Serum 4.8 meq/L 3.5-5.1 MEDENT ([facility]) Calcium Level 9.0 mg/dL 8.8-10.2 MEDENT ([facility]) Anion Gap 4 meq/L 8-16 [facility] ID Date Data Source PSA MONITOR (HX PROSTATE CA/ABNORMAL PSA) 04/28/2020 12:00:0 0 AM EST [facility] Name Value Range Interpretation Code Description Data Shannon rce(s) Supporting Document(s) < 0.01 < 4.00 PROSTATIC SPECIFIC AG MON ITOR eCW1 ([facility]) ID Date Data Source [id number] 03/18/2020 01:14:00 PM EST MEDENT ([facility]) Name Value Range Interpretation Code Description Data Shannon rce(s) Supporting Document(s) Glucose [Mass/volume] in Serum or Plasma 152 MEDENT ([facility]) Hemoglobin A1c/Hemoglobin.total in Blood 6.0 MEDENT ([facility]) ID Date Data Source PT-INR Fingerstick 03/04/2020 12:15:26 PM EDT eCW1 ([facility]) Name Value Range Interpretation Code Description Data Shannon rce(s) Supporting Document(s) 2.1 INR eCW1 ([facility]) yes ndraper Verified Patient's Name and eCW1 ([facility]) 5mg tabs Tab Strength eCW1 ([facility]) 5mg row Current Dose 2 eCW1 ([facility]) 2.5 fridays Current Dose 1 eCW1 ([facility]) no Recent Bleeding eCW1 ([facility]) a fib Indication for Anticoagul ation eCW1 ([facility]) yes Internal QC Acceptable (Y/N) e CW1 ([facility]) Education Given (Date / Initia ls) eCW1 ([facility]) New Dose 2 eCW1 ([facility]) 2-3 Therapeutic Range eCW1 ([facility]) no change New Dose 1 eCW1 ([facility]) 4 weeks Next PT-INR eCW1 ([facility]) kes - eCW1 ([facility]) Weekly Total eCW1 ([facility]) ID Date Data Source [id number] 02/29/2020 01:48:00 PM EDT MEDENT ([facility]) Name Value Range Interpretation Code Description Data Shannon rce(s) Supporting Document(s) Magnesium [Mass/volume] in Serum or Plasma 2.4 mg/dL 1.8-2.4 MEDENT ([facility]) <content>note:<nlbl:demographic_changed> </content>
<content></content> ID Date Data Source [id number] 02/29/2020 01:48:00 PM EDT MEDENT ([facility]) Name Value Range Interpretation Code Description Data Shannon rce(s) Supporting Document(s) Glucose, Fasting 67 mg/dL 70-100 MEDENT ([facility]) Blood Urea Nitrogen 63 mg/dL 7-18 MEDENT ([facility]) Creatinine For GFR 1.99 mg/dL 0.70-1.30 MEDENT ([facility]) Glomerular Filtration Rate 34.9 MED ENT ([facility]) <content>Units are mL/min/1.73 m2</content>
<content></content>
<content>Chronic Kidney Disease Staging per NKF:</content>
<content></content>
<content>Stage I & II GFR >=60 Normal to Mildly Decreased</content>
<content>Stage III GFR 30- 59 Moderately Decreased</content>
<content>Stage IV GFR 15-29 Severely Decreased</content>
<content>Stage V GFR <15 Very Little GFR Left</content>
<content>ESRD GFR <15 on FLATBED DRIVER</content>
<content></content> Potassium Serum 4.4 meq/L 3.5-5.1 MEDENT ([facility]) Sodium Level 140 meq/L 136-145 MED[facility] ([facility]) Carbon Dioxide Level 33 meq/L 21-32 MEDENT ([facility]) Chloride Level 101 meq/L 98-107 MEDENT ([facility]) Anion Gap 6 meq/L 8-16 [facility] Calcium Level 8.4 mg/dL 8.8-10.2 MEDENT ([facility]) ID Date Data Source [id number] 01/29/2020 01:30:00 PM EDT MEDENT ([facility]) Name Value Range Interpretation Code Description Data Shannon rce(s) Supporting Document(s) Magnesium [Mass/volume] in Serum or Plasma 2.4 mg/dL 1.8-2.4 MEDENT ([facility]) <content>note:<nlbl:demographic_changed> </content>
<content></content> ID Date Data Source [id number] 01/29/2020 01:30:00 PM EDT [facility] Name Value Range Interpretation Code Description Data Shannon rce(s) Supporting Document(s) Glucose, Fasting 138 mg/dL 70-100 MEDENT ([facility]) Blood Urea Nitrogen 63 mg/dL 7-18 MED[facility] ([facility]) Creatinine For GFR 1.74 mg/dL 0.70-1.30 MEDENT ([facility]) Glomerular Filtration Rate 40.8 MED ENT ([facility]) <content>Units are mL/min/1.73 m2</content>
<content></content>
<content>Chronic Kidney Disease Staging per NKF:</content>
<content></content>
<content>Stage I & II GFR >=60 Normal to Mildly Decreased</content>
<content>Stage III GFR 30- 59 Moderately Decreased</content>
<content>Stage IV GFR 15-29 Severely Decreased</content>
<content>Stage V GFR <15 Very Little GFR Left</content>
<content>ESRD GFR <15 on FLATBED DRIVER</content>
<content></content> Sodium Level 143 meq/L 136-145 [facility] ([facility]) Potassium Serum 4.4 meq/L 3.5-5.1 [facility] ([facility]) Carbon Dioxide Level 32 meq/L 21-32 MED[facility] ([facility]) Chloride Level 105 meq/L 98-107 MED[facility] ([facility]) Anion Gap 6 meq/L 8-16 [facility] Calcium Level 8.5 mg/dL 8.8-10.2 [facility]ENT ([facility]) Procedure Social History Code Duration Value Status Description Data Source(s ) Smoking 02/09/2021 12:00:00 AM EDT Patient is a former smoker completed Patient is a former smoker [facility] ([facility]) Smoking 01/23/2021 12:00:00 AM EDT Former Smoker completed Former Smoker [facility] Smoking 01/23/2021 12:00:00 AM EDT Former Smoker completed Former Smoker eCW1 ([facility]) Smoking 01/23/2021 12:00:00 AM EDT Former Smoker completed Former Smoker eCW1 ([facility]) Smoking 01/23/2021 12:00:00 AM EDT Former Smoker completed Former Smoker eCW1 ([facility]) Smoking 01/19/2021 12:00:00 AM EDT Former Smoker completed Former Smoker eCW1 ([facility]) Smoking 12/30/2020 12:00:00 AM EDT Former Smoker completed Former Smoker eCW1 ([facility]) Smoking 12/16/2020 12:00:00 AM EDT Former Smoker completed Former Smoker eCW1 ([facility]) Smoking 12/02/2020 12:00:00 AM EDT Former Smoker completed Former Smoker eCW1 ([facility]) Smoking 12/02/2020 12:00:00 AM EDT Former Smoker completed Former Smoker eCW1 ([facility]) Smoking 12/02/2020 12:00:00 AM EDT Former Smoker completed Former Smoker eCW1 ([facility]) Smoking 11/23/2020 12:00:00 AM EDT Former Smoker completed Former Smoker eCW1 ([facility]) Smoking 11/23/2020 12:00:00 AM EDT Former Smoker completed Former Smoker eCW1 ([facility]) Smoking 11/23/2020 12:00:00 AM EDT Former Smoker completed Former Smoker eCW1 ([facility]) Smoking 11/18/2020 12:00:00 AM EDT Former Smoker completed Former Smoker eCW1 ([facility]) Smoking 11/18/2020 12:00:00 AM EDT Former Smoker completed Former Smoker eCW1 ([facility]) Smoking 11/03/2020 12:00:00 AM EDT Former Smoker completed Former Smoker eCW1 ([facility]) Smoking 11/01/2020 12:00:00 AM EDT Patient is a former smoker completed Patient is a former smoker MEDENT ([facility] ) Smoking 10/28/2020 12:00:00 AM EDT Former Smoker completed Former Smoker eCW1 ([facility]) Smoking 10/21/2020 12:00:00 AM EDT Former Smoker completed Former Smoker eCW1 ([facility]) Smoking 09/22/2020 12:00:00 AM EDT Former Smoker completed Former Smoker eCW1 ([facility]) Smoking 09/22/2020 12:00:00 AM EDT Former Smoker completed Former Smoker eCW1 ([facility]) Smoking 08/11/2020 12:00:00 AM EDT Former Smoker completed Former Smoker eCW1 ([facility]) Smoking 08/11/2020 12:00:00 AM EDT Former Smoker completed Former Smoker eCW1 ([facility]) Smoking 08/11/2020 12:00:00 AM EDT Former Smoker completed Former Smoker eCW1 ([facility]) Smoking 08/11/2020 12:00:00 AM EDT Former Smoker completed Former Smoker eCW1 ([facility]) Smoking 08/11/2020 12:00:00 AM EDT Former Smoker completed Former Smoker eCW1 ([facility]) Smoking 07/22/2020 12:00:00 AM EST Former Smoker completed Former Smoker eCW1 ([facility]) Smoking 07/22/2020 12:00:00 AM EST Former Smoker completed Former Smoker eCW1 ([facility]) Smoking 07/22/2020 12:00:00 AM EST Former Smoker completed Former Smoker eCW1 ([facility]) Smoking 07/01/2020 12:00:00 AM EST Former Smoker completed Former Smoker eCW1 ([facility]) Smoking 07/01/2020 12:00:00 AM EST Former Smoker completed Former Smoker eCW1 ([facility]) Smoking 07/01/2020 12:00:00 AM EST Former Smoker completed Former Smoker eCW1 ([facility]) Smoking 06/03/2020 12:00:00 AM EST Former Smoker completed Former Smoker eCW1 ([facility]) Smoking 06/03/2020 12:00:00 AM EST Former Smoker completed Former Smoker eCW1 ([facility]) Smoking 05/12/2020 12:00:00 AM EST Former Smoker completed Former Smoker eCW1 ([facility]) Smoking 05/12/2020 12:00:00 AM EST Former Smoker completed Former Smoker eCW1 ([facility]) Smoking 05/12/2020 12:00:00 AM EST Former Smoker completed Former Smoker eCW1 ([facility]) Smoking 05/12/2020 12:00:00 AM EST Former Smoker completed Former Smoker eCW1 ([facility]) Smoking 05/12/2020 12:00:00 AM EST Former Smoker completed Former Smoker eCW1 ([facility]) Smoking 05/05/2020 12:00:00 AM EST Former Smoker completed Former Smoker eCW1 ([facility]) Smoking 05/05/2020 12:00:00 AM EST Former Smoker completed Former Smoker eCW1 ([facility]) Smoking 04/28/2020 12:00:00 AM EST Former Smoker completed Former Smoker eCW1 ([facility]) Smoking 04/28/2020 12:00:00 AM EST Former Smoker completed Former Smoker eCW1 ([facility]) Smoking 04/28/2020 12:00:00 AM EST Former Smoker completed Former Smoker eCW1 ([facility]) Smoking 04/06/2020 12:00:00 AM EST Former Smoker completed Former Smoker eCW1 ([facility]) Smoking 04/06/2020 12:00:00 AM EST Former Smoker completed Former Smoker eCW1 ([facility]) Smoking 04/06/2020 12:00:00 AM EST Former Smoker completed Former Smoker eCW1 ([facility]) Smoking 03/31/2020 12:00:00 AM EST Former Smoker completed Former Smoker eCW1 ([facility]) Smoking 03/18/2020 12:00:00 AM EST Patient is a former smoker completed Patient is a former smoker MEDENT ([facility]) Smoking 03/04/2020 12:00:00 AM EDT Former Smoker completed Former Smoker eCW1 ([facility]) Smoking 03/04/2020 12:00:00 AM EDT Former Smoker completed Former Smoker eCW1 ([facility]) Smoking 03/04/2020 12:00:00 AM EDT Former Smoker completed Former Smoker eCW1 ([facility]) Smoking 03/04/2020 12:00:00 AM EDT Former Smoker completed Former Smoker eCW1 ([facility]) Vital Signs ID Date Data Source UNK Name Value Range Interpretation Code Description Data Source(s) Diastolic blood pressure 64 mm[Hg] 64 mm[Hg] MEDENT ([facility]) sitting, large cuff Heart rate 64 /min 64 /min [facility] ([facility]) Regular Respiratory rate 16 /min 16 /min MEDENT ( [facility]) Systolic blood pressure 124 mm[Hg] 124 mm[Hg] M EDENT ([facility]) sitting, large cuff Body weight 336.00 [lb_av] 336.00 [lb_av] MEDEN T ([facility]) Body height 67 [in_i] 67 [in_i] [facility] ([facility]) 5'7" Body mass index (BMI) [Ratio] 52.6 kg/m2 52.6 k g/m2 MED[facility] ([facility]) Body weight 337 [lb_av] 337 [lb_av] eCW1 ([facility]) Body height 67 [in_i] 67 [in_i] eCW1 ([facility]) Body mass index (BMI) [Ratio] 52.78 kg/m2 52.78 kg/m2 eCW1 ([facility]) Heart rate 75 /min 75 /min eCW1 ([facility]) Respiratory rate 18 /min 18 /min eCW1 ([facility]) Body temperature 96.3 [degF] 96.3 [degF] eCW1 ( [facility]) Systolic blood pressure 130 mm[Hg] 130 mm[Hg] e CW1 ([facility]) Diastolic blood pressure 72 mm[Hg] 72 mm[Hg] eCW1 ([facility]) Body weight 340 [lb_av] 340 [lb_av] eCW1 ([facility]) Body weight 154.22 kg 154.22 kg eCW1 ([facility]) Body height 67 [in_i] 67 [in_i] eCW1 ([facility]) Body mass index (BMI) [Ratio] 53.25 kg/m2 53.25 kg/m2 eCW1 ([facility]) Heart rate 69 /min 69 /min eCW1 ([facility]) Respiratory rate 19 /min 19 /min eCW1 ([facility]) Body temperature 96.8 [degF] 96.8 [degF] eCW1 ( [facility]) Systolic blood pressure 144 mm[Hg] 144 mm[Hg] e CW1 ([facility]) Diastolic blood pressure 78 mm[Hg] 78 mm[Hg] eCW1 ([facility]) Body weight 338 [lb_av] 338 [lb_av] eCW1 ([facility]) Body weight 153.31 kg 153.31 kg eCW1 ([facility]) Body height 67 [in_i] 67 [in_i] eCW1 ([facility]) Body mass index (BMI) [Ratio] 52.93 kg/m2 52.93 kg/m2 eCW1 ([facility]) Heart rate 78 /min 78 /min eCW1 ([facility]) Respiratory rate 20 /min 20 /min eCW1 ([facility]) Body temperature 96.6 [degF] 96.6 [degF] eCW1 ( [facility]) Systolic blood pressure 140 mm[Hg] 140 mm[Hg] e CW1 ([facility]) Diastolic blood pressure 70 mm[Hg] 70 mm[Hg] eCW1 ([facility]) Body weight 338 [lb_av] 338 [lb_av] eCW1 ([facility]) Body height 67 [in_i] 67 [in_i] eCW1 ([facility]) Body mass index (BMI) [Ratio] 52.93 kg/m2 52.93 kg/m2 eCW1 ([facility]) Heart rate 68 /min 68 /min eCW1 ([facility]) Respiratory rate 20 /min 20 /min eCW1 ([facility]) Body temperature 97.1 [degF] 97.1 [degF] eCW1 ( [facility]) Systolic blood pressure 136 mm[Hg] 136 mm[Hg] e CW1 ([facility]) Diastolic blood pressure 76 mm[Hg] 76 mm[Hg] eCW1 ([facility]) Body temperature 97.3 [degF] 97.3 [degF] eCW1 ( [facility]) Systolic blood pressure 130 mm[Hg] 130 mm[Hg] e CW1 ([facility]) Diastolic blood pressure 70 mm[Hg] 70 mm[Hg] eCW1 ([facility]) Body weight 342 [lb_av] 342 [lb_av] eCW1 ([facility]) Body height 67 [in_i] 67 [in_i] eCW1 ([facility]) Body mass index (BMI) [Ratio] 53.56 kg/m2 53.56 kg/m2 eCW1 ([facility]) Heart rate 77 /min 77 /min eCW1 ([facility]) Respiratory rate 20 /min 20 /min eCW1 ([facility]) Body weight 340 [lb_av] 340 [lb_av] eCW1 ([facility]) Body height 67 [in_i] 67 [in_i] eCW1 ([facility]) Body mass index (BMI) [Ratio] 53.25 kg/m2 53.25 kg/m2 eCW1 ([facility]) Heart rate 72 /min 72 /min eCW1 ([facility]) Respiratory rate 20 /min 20 /min eCW1 ([facility]) Body temperature 96.7 [degF] 96.7 [degF] eCW1 ( [facility]) Systolic blood pressure 132 mm[Hg] 132 mm[Hg] e CW1 ([facility]) Diastolic blood pressure 76 mm[Hg] 76 mm[Hg] eCW1 ([facility]) Body weight 340 [lb_av] 340 [lb_av] eCW1 ([facility]) Body height 67 [in_i] 67 [in_i] eCW1 ([facility]) Body mass index (BMI) [Ratio] 53.25 kg/m2 53.25 kg/m2 eCW1 ([facility]) Heart rate 70 /min 70 /min eCW1 ([facility]) Respiratory rate 22 /min 22 /min eCW1 ([facility]) Body temperature 97.2 [degF] 97.2 [degF] eCW1 ( [facility]) Systolic blood pressure 130 mm[Hg] 130 mm[Hg] e CW1 ([facility]) Diastolic blood pressure 70 mm[Hg] 70 mm[Hg] eCW1 ([facility]) Respiratory rate 19 /min 19 /min eCW1 ([facility]) Body weight 339 [lb_av] 339 [lb_av] eCW1 ([facility]) Body height 67 [in_i] 67 [in_i] eCW1 ([facility]) Body mass index (BMI) [Ratio] 53.09 kg/m2 53.09 kg/m2 eCW1 ([facility]) Heart rate 61 /min 61 /min eCW1 ([facility]) Body temperature 96.7 [degF] 96.7 [degF] eCW1 ( [facility]) Systolic blood pressure 111 mm[Hg] 111 mm[Hg] e CW1 ([facility]) Diastolic blood pressure 68 mm[Hg] 68 mm[Hg] eCW1 ([facility]) Body weight 339 [lb_av] 339 [lb_av] eCW1 ([facility]) Body height 67 [in_i] 67 [in_i] eCW1 ([facility]) Body mass index (BMI) [Ratio] 53.09 kg/m2 53.09 kg/m2 eCW1 ([facility]) Heart rate 68 /min 68 /min eCW1 ([facility]) Respiratory rate 20 /min 20 /min eCW1 ([facility]) Body temperature 96.3 [degF] 96.3 [degF] eCW1 ( [facility]) Systolic blood pressure 140 mm[Hg] 140 mm[Hg] e CW1 ([facility]) Diastolic blood pressure 80 mm[Hg] 80 mm[Hg] eCW1 ([facility]) Diastolic blood pressure 66 mm[Hg] 66 mm[Hg] MEDENT ([facility]) sitting, large cuff Body mass index (BMI) [Ratio] 53.2 kg/m2 53.2 k g/m2 MED[facility] ([facility]) Respiratory rate 16 /min 16 /min MEDENT ( [facility]) Body weight 340.00 [lb_av] 340.00 [lb_av] MEDEN T ([facility]) Body height 67 [in_i] 67 [in_i] MEDENT ([facility]) 5'7" Heart rate 64 /min 64 /min MED[facility] ([facility]) Regular Systolic blood pressure 136 mm[Hg] 136 mm[Hg] M EDENT ([facility]) sitting, large cuff Body weight 339.4 [lb_av] 339.4 [lb_av] eCW1 ([facility]) Body height 67 [in_i] 67 [in_i] eCW1 ([facility]) Body mass index (BMI) [Ratio] 53.15 kg/m2 53.15 kg/m2 eCW1 ([facility]) Heart rate 78 /min 78 /min eCW1 ([facility]) Respiratory rate 18 /min 18 /min eCW1 ([facility]) Body temperature 97.6 [degF] 97.6 [degF] eCW1 ( [facility]) Systolic blood pressure 138 mm[Hg] 138 mm[Hg] e CW1 ([facility]) Diastolic blood pressure 82 mm[Hg] 82 mm[Hg] eCW1 ([facility]) Body weight 339.00 [lb_av] 339.00 [lb_av] MEDEN T ([facility]) [place] body weight 148 [lb_av] 148 [lb_av] MEDEN T ([facility]) Body weight 153.770 kg 153.770 kg [facility] ([facility]) Body surface area Derived from formula 2.53 m2 2.53 m2 [facility] ([facility]) Oxygen saturation in Arterial blood by Pulse oximetry 92 % 92 % [facility] ([facility]) Body temperature 96.2 [degF] 96.2 [degF] [facility] ([facility]) Body height 67 [in_i] 67 [in_i] [facility] 5'7" Body mass index (BMI) [Ratio] 53.1 kg/m2 53.1 k g/m2 [facility] ([facility]) Systolic blood pressure 124 mm[Hg] 124 mm[Hg] M EDENT ([facility]) Diastolic blood pressure 80 mm[Hg] 80 mm[Hg] [facility] ([facility]) Heart rate 88 /min 88 /min [facility] ([facility]) Respiratory rate 18 /min 18 /min eCW1 ([facility]) Heart rate 79 /min 79 /min eCW1 ([facility]) Body weight 339 [lb_av] 339 [lb_av] eCW1 ([facility]) Body height 67 [in_i] 67 [in_i] eCW1 ([facility]) Body mass index (BMI) [Ratio] 53.09 kg/m2 53.09 kg/m2 W1 ([facility]) Body temperature 96.9 [degF] 96.9 [degF] eCW1 ( [facility]) Systolic blood pressure 102 mm[Hg] 102 mm[Hg] e CW1 ([facility]) Diastolic blood pressure 60 mm[Hg] 60 mm[Hg] eCW1 ([facility]) Body mass index (BMI) [Ratio] 53.25 kg/m2 53.25 kg/m2 W1 ([facility]) Body weight 340 [lb_av] 340 [lb_av] eCW1 ([facility]) Body height 67 [in_i] 67 [in_i] eCW1 ([facility]) Heart rate 71 /min 71 /min eCW1 ([facility]) Respiratory rate 18 /min 18 /min eCW1 ([facility]) Body temperature 97.1 [degF] 97.1 [degF] eCW1 ( [facility]) Systolic blood pressure 124 mm[Hg] 124 mm[Hg] e CW1 ([facility]) Diastolic blood pressure 68 mm[Hg] 68 mm[Hg] eCW1 ([facility]) Body weight 154.451 kg 154.451 [facility] Systolic blood pressure 144 mm[Hg] 144 mm[Hg] M EDENT ([facility]) Diastolic blood pressure 68 mm[Hg] 68 mm[Hg] [facility] ([facility]) Heart rate 71 /min 71 /min [facility] ([facility]) Oxygen saturation in Arterial blood by Pulse oximetry 97 % 97 % [facility] ([facility], ) Body height 67 [in_i] 67 [in_i] [facility] ([facility], ) 5'7" Body weight 340.50 [lb_av] 340.50 [lb_av] [facility] T ([facility]) Body mass index (BMI) [Ratio] 53.3 kg/m2 53.3 k g/m2 [facility] ([facility]) [place] body weight 148 [lb_av] 148 [lb_av] MED[facility] T ([facility]) Body surface area Derived from formula 2.54 m2 2.54 m2 [facility] ([facility]) Body weight 338 [lb_av] 338 [lb_av] eCW1 ([facility]) Body height 67 [in_i] 67 [in_i] eCW1 ([facility]) Body mass index (BMI) [Ratio] 52.93 kg/m2 52.93 kg/m2 eCW1 ([facility]) Heart rate 74 /min 74 /min eCW1 ([facility]) Respiratory rate 18 /min 18 /min eCW1 ([facility]) Body temperature 96.8 [degF] 96.8 [degF] eCW1 ( [facility]) Systolic blood pressure 130 mm[Hg] 130 mm[Hg] e CW1 ([facility]) Diastolic blood pressure 70 mm[Hg] 70 mm[Hg] eCW1 ([facility]) Body weight 338 [lb_av] 338 [lb_av] eCW1 ([facility]) Body height 67 [in_i] 67 [in_i] eCW1 ([facility]) Body mass index (BMI) [Ratio] 52.93 kg/m2 52.93 kg/m2 eCW1 ([facility]) Heart rate 80 /min 80 /min eCW1 ([facility]) Respiratory rate 18 /min 18 /min eCW1 ([facility]) Body temperature 96.3 [degF] 96.3 [degF] eCW1 ( [facility]) Systolic blood pressure 130 mm[Hg] 130 mm[Hg] e CW1 ([facility]) Diastolic blood pressure 72 mm[Hg] 72 mm[Hg] eCW1 ([facility]) Body height 67 [in_i] 67 [in_i] ASHANTI ([facility] 5'7" Systolic blood pressure 132 mm[Hg] 132 mm[Hg] M EZ ([facility]) sitting Body weight 336.00 [lb_av] 336.00 [lb_av] ERIC T ([facility]) Body mass index (BMI) [Ratio] 52.6 kg/m2 52.6 k g/m2 ASHANTI ([facility]) Heart rate 64 /min 64 /min MEDENT ([facility]) Respiratory rate 16 /min 16 /min MEDENT ( [facility]) Systolic blood pressure 136 mm[Hg] 136 mm[Hg] M EDENT ([facility]) sitting, large cuff Diastolic blood pressure 74 mm[Hg] 74 mm[Hg] MEDENT ([facility]) sitting, large cuff Diastolic blood pressure 74 mm[Hg] 74 mm[Hg] MEDENT ([facility]) sitting Body weight 331 [lb_av] 331 [lb_av] eCW1 ([facility]) Body height 67 [in_i] 67 [in_i] eCW1 ([facility]) Body mass index (BMI) [Ratio] 51.84 kg/m2 51.84 kg/m2 eCW1 ([facility]) Heart rate 78 /min 78 /min eCW1 ([facility]) Respiratory rate 18 /min 18 /min eCW1 ([facility]) Body temperature 96.3 [degF] 96.3 [degF] eCW1 ( [facility]) Systolic blood pressure 130 mm[Hg] 130 mm[Hg] e CW1 ([facility]) Diastolic blood pressure 76 mm[Hg] 76 mm[Hg] eCW1 ([facility]) Heart rate 56 /min 56 /min MEDENT ([facility], ) Oxygen saturation in Arterial blood by Pulse oximetry 90 % 90 % [facility] Body temperature 96.4 [degF] 96.4 [degF] MEDENT ([facility], ) Body height 67 [in_i] 67 [in_i] MEDENT ([facility], ) 5'7" Body weight 336.38 [lb_av] 336.38 [lb_av] MEDEN T ([facility], ) Body mass index (BMI) [Ratio] 52.7 kg/m2 52.7 k g/m2 MEDENT ([facility], ) [place] body weight 148 [lb_av] 148 [lb_av] [facility] T ([facility]) Body weight 152.580 kg [facility].580 [facility] Body surface area Derived from formula 2.52 m2 2.52 m2 MED[facility] ([facility]) Diastolic blood pressure 78 mm[Hg] 78 mm[Hg] [facility] ([facility]) Systolic blood pressure 136 mm[Hg] 136 mm[Hg] M EDENT ([facility]) Body mass index (BMI) [Ratio] 52.31 kg/m2 52.31 kg/m2 W1 ([facility]) Body height 67 [in_i] 67 [in_i] eCW1 ([facility]) Body weight 334 [lb_av] 334 [lb_av] eCW1 ([facility]) Heart rate 90 /min 90 /min eCW1 ([facility]) Respiratory rate 20 /min 20 /min eCW1 ([facility]) Body temperature 97.1 [degF] 97.1 [degF] eCW1 ( [facility]) Systolic blood pressure 130 mm[Hg] 130 mm[Hg] e CW1 ([facility]) Diastolic blood pressure 80 mm[Hg] 80 mm[Hg] eCW1 ([facility]) Body weight 339 [lb_av] 339 [lb_av] eCW1 ([facility]) Body temperature 97 [degF] 97 [degF] eCW1 ([facility]) Body height 67 [in_i] 67 [in_i] eCW1 ([facility]) Systolic blood pressure 140 mm[Hg] 140 mm[Hg] e CW1 ([facility]) Diastolic blood pressure 80 mm[Hg] 80 mm[Hg] eCW1 ([facility]) Body mass index (BMI) [Ratio] 53.09 kg/m2 53.09 kg/m2 W1 ([facility]) Heart rate 88 /min 88 /min eCW1 ([facility]) Respiratory rate 20 /min 20 /min eCW1 ([facility]) Body weight 335.4 [lb_av] 335.4 [lb_av] eCW1 ([facility]) Body height 67 [in_i] 67 [in_i] eCW1 ([facility]) Body mass index (BMI) [Ratio] 52.53 kg/m2 52.53 kg/m2 eCW1 ([facility]) Body weight 339 [lb_av] 339 [lb_av] eCW1 ([facility]) Body height 67 [in_i] 67 [in_i] eCW1 ([facility]) Body mass index (BMI) [Ratio] 53.09 kg/m2 53.09 kg/m2 eCW1 ([facility]) Heart rate 92 /min 92 /min eCW1 ([facility]) Respiratory rate 20 /min 20 /min eCW1 ([facility]) Body temperature 96.4 [degF] 96.4 [degF] eCW1 ( [facility]) Systolic blood pressure 140 mm[Hg] 140 mm[Hg] e CW1 ([facility]) Diastolic blood pressure 70 mm[Hg] 70 mm[Hg] eCW1 ([facility]) Body weight 340 [lb_av] 340 [lb_av] eCW1 ([facility]) Body height 67 [in_i] 67 [in_i] eCW1 ([facility]) Body mass index (BMI) [Ratio] 53.25 kg/m2 53.25 kg/m2 eCW1 ([facility]) Heart rate 82 /min 82 /min eCW1 ([facility]) Respiratory rate 20 /min 20 /min eCW1 ([facility]) Body temperature 96.8 [degF] 96.8 [degF] eCW1 ( [facility]) Systolic blood pressure 130 mm[Hg] 130 mm[Hg] e CW1 ([facility]) Diastolic blood pressure 70 mm[Hg] 70 mm[Hg] eCW1 ([facility]) Body weight 337.00 [lb_av] 337.00 [lb_av] MEDEN T ([facility]) Body height 67 [in_i] 67 [in_i] ASHANTI [facility] 5'7" Body mass index (BMI) [Ratio] 52.8 kg/m2 52.8 k g/m2 ASHANTI ([facility]) Respiratory rate 18 /min 18 /min eCW1 ([facility]) Body weight 340 [lb_av] 340 [lb_av] eCW1 ([facility]) Body temperature 96.5 [degF] 96.5 [degF] eCW1 ( [facility]) Body height 67 [in_i] 67 [in_i] eCW1 ([facility]) Body mass index (BMI) [Ratio] 53.25 kg/m2 53.25 kg/m2 eCW1 ([facility]) Systolic blood pressure 140 mm[Hg] 140 mm[Hg] e CW1 ([facility]) Heart rate 99 /min 99 /min eCW1 ([facility]) Diastolic blood pressure 70 mm[Hg] 70 mm[Hg] eCW1 ([facility]) Body weight 337 [lb_av] 337 [lb_av] eCW1 ([facility]) Respiratory rate 18 /min 18 /min eCW1 ([facility]) Body temperature 96.5 [degF] 96.5 [degF] eCW1 ( [facility]) Systolic blood pressure 142 mm[Hg] 142 mm[Hg] e CW1 ([facility]) Diastolic blood pressure 70 mm[Hg] 70 mm[Hg] eCW1 ([facility]) Body height 67 [in_i] 67 [in_i] eCW1 ([facility]) Body mass index (BMI) [Ratio] 52.78 kg/m2 52.78 kg/m2 eCW1 ([facility]) Heart rate 87 /min 87 /min eCW1 ([facility]) Body weight 338 [lb_av] 338 [lb_av] eCW1 ([facility]) Body height 67 [in_i] 67 [in_i] eCW1 ([facility]) Body mass index (BMI) [Ratio] 52.93 kg/m2 52.93 kg/m2 eCW1 ([facility]) Heart rate 84 /min 84 /min eCW1 ([facility]) Respiratory rate 20 /min 20 /min eCW1 ([facility]) Body temperature 96.9 [degF] 96.9 [degF] eCW1 ( [facility]) Systolic blood pressure 136 mm[Hg] 136 mm[Hg] e CW1 ([facility]) Diastolic blood pressure 64 mm[Hg] 64 mm[Hg] eCW1 ([facility]) Systolic blood pressure 142 mm[Hg] 142 mm[Hg] M EDENT ([facility]) Body temperature 97.4 [degF] 97.4 [degF] MEDENT ([facility]) Heart rate 67 /min 67 /min MEDENT ([facility]) Diastolic blood pressure 80 mm[Hg] 80 mm[Hg] MEDENT ([facility]) Body height 67.3 [in_i] 67.3 [in_i] MEDENT ([facility]) 5'7.30" Body mass index (BMI) [Ratio] 52.7 kg/m2 52.7 k g/m2 [facility] ([facility]) Body weight 339.50 [lb_av] 339.50 [lb_av] MEDEN T ([facility]) Oxygen saturation in Arterial blood by Pulse oximetry 98 % 98 % [facility] ([facility]) Body temperature 97 [degF] 97 [degF] eCW1 ([facility]) Respiratory rate 22 /min 22 /min eCW1 ([facility]) Body weight 338 [lb_av] 338 [lb_av] eCW1 ([facility]) Body height 67 [in_i] 67 [in_i] eCW1 ([facility]) Body mass index (BMI) [Ratio] 52.93 kg/m2 52.93 kg/m2 eCW1 ([facility]) Heart rate 92 /min 92 /min eCW1 ([facility]) Systolic blood pressure 130 mm[Hg] 130 mm[Hg] e CW1 ([facility]) Diastolic blood pressure 80 mm[Hg] 80 mm[Hg] eCW1 ([facility]) Heart rate 60 /min 60 /min MED[facility] ([facility]) Regular Body mass index (BMI) [Ratio] 52.5 kg/m2 52.5 k g/m2 [facility] ([facility]) Respiratory rate 16 /min 16 /min MEDENT ( [facility]) Systolic blood pressure 126 mm[Hg] 126 mm[Hg] M EDENT ([facility]) sitting, large cuff Diastolic blood pressure 76 mm[Hg] 76 mm[Hg] MEDENT ([facility]) sitting, large cuff Systolic blood pressure 126 mm[Hg] 126 mm[Hg] M EDENT ([facility]) sitting Body weight 335.00 [lb_av] 335.00 [lb_av] MEDEN T ([facility]) Body height 67 [in_i] 67 [in_i] MEDENT ([facility]) 5'7" Diastolic blood pressure 72 mm[Hg] 72 mm[Hg] MEDENT ([facility]) sitting Patient Treatment Plan of Care Planned Activity Planned Date Details Description Data Source (s) Betamethasone 1 MG/ML Topical Cream 12/16/2020 12:00:00 AM EDT eCW1 ([facility]) Nystatin 100 UNT/MG Topical Powder 12/02/2020 12:00:00 AM EDT eCW1 ([facility]) Nystatin 100 UNT/MG Topical Powder 12/02/2020 12:00:00 AM EDT eCW1 ([facility]) Nystatin 100 UNT/MG Topical Powder 12/02/2020 12:00:00 AM EDT eCW1 ([facility]) Ergocalciferol [id number] UNT Oral Capsule 07/16/2020 12:00:00 AM EST eCW1 ([facility]) Ergocalciferol [id number] UNT Oral Capsule 07/16/2020 12:00:00 AM EST eCW1 ([facility]) Ergocalciferol [id number] UNT Oral Capsule 07/16/2020 12:00:00 AM EST eCW1 ([facility]) 12 HR Guaifenesin 600 MG Extended Release Oral Tablet [Mucinex] 07/16/2020 12:00:00 AM EST eCW1 ([facility]) Cyanocobalamin 100 MCG 07/16/2020 12:00:00 AM EST eCW1 ([facility]) Ergocalciferol [id number] UNT Oral Capsule 07/16/2020 12:00:00 AM EST eCW1 ([facility]) Ergocalciferol [id number] UNT Oral Capsule 07/16/2020 12:00:00 AM EST eCW1 ([facility])
[2021-03-01 03:24] LABS: PARTIAL THROMBOPLASTIN TIME 75.8 SECONDS (25.9-37.0)
[2021-03-01 03:38] VITALS: BP 104/54
--- NOTE | 2021-03-01 03:39 | REPVR ---
PROCEDURE INFORMATION: Exam: CTA Chest With Contrast Exam date and time: 03/01/2021 2:48 AM Age: 76 years old Clinical indication: ST-elevation myocardial infarct, wide mediastium on chest x-ray TECHNIQUE: Imaging protocol: Computed tomographic angiography of the chest with contrast. 3D rendering (Not supervised by radiologist): MIP and/or 3D reconstructed images were created by the technologist. Radiation optimization: All CT scans at this facility use at least one of these dose optimization techniques: automated exposure control; mA and/or kV adjustment per patient size (includes targeted exams where dose is matched to clinical indication); or iterative reconstruction. Contrast material: ISOVUE 370; Contrast volume: 100 ml; Contrast route: INTRAVENOUS (IV); COMPARISON: 1. CT Chest without contrast 10/28/2020 11:21 AM 2. CR PORTABLE CHEST X-RAY 03/01/2021 2:22:39 AM FINDINGS: Limitations: Respiratory motion artifact degrades the image quality. Pulmonary arteries: The main and lobar pulmonary arteries are patent. This study was not dedicated for the evaluation of the segmental and subsegmental pulmonary arteries, which are poorly opacified and degraded by respiratory motion artifact. Aorta: The thoracic aorta is intact and patent. There is no thoracic aortic aneurysm, pseudoaneurysm, penetrating atherosclerotic ulcer, intramural hematoma, or dissection. Other arteries: There are mild atherosclerotic calcifications. Thyroid: Unremarkable. Lungs: There is a 6 mm calcified granuloma in the left upper lobe (image 23 of the coronal MIP series 405), which is unchanged compared to the CT chest on 10/28/2020. The lungs are otherwise clear. There is no lung consolidation or pulmonary infarct. No emphysematous changes or interstitial lung disease is noted. Pleural spaces: No pneumothorax or pleural effusion. Heart: The heart is enlarged. There are coronary artery, aortic valve, and mitral annular calcifications. No pericardial effusion is noted. Incidental note is made of enlargement of the pericardial fat pads. Mediastinal space: No mediastinal mass, fluid collection, or pneumomediastinum. 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 Lymph nodes: No enlarged lymph nodes. Bones/joints: There is no acute fracture or dislocation. There are old healed fractures of the right lateral 4th and 5th ribs and right anterior 6th and 7th ribs. There are degenerative changes involving the thoracic spine. Soft tissues: Other findings: For details regarding the abdominal and pelvic findings, refer to the CT abdomen and pelvis report on 03/01/2021. There is increased adipose tissue. IMPRESSION: 1. 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 2. No thoracic aortic aneurysm, pseudoaneurysm, intramural hematoma, penetrating atherosclerotic ulcer, or dissection. 3. Cardiomegaly. Electronically signed by: Earnest Dorsey On 03/01/2021 03:38:58 AM
--- NOTE | 2021-03-01 03:39 | REPVR ---
PROCEDURE INFORMATION: Exam: XR Chest Exam date and time: 03/01/2021 2:31 AM Age: 76 years old Clinical indication: Chest pain TECHNIQUE: Imaging protocol: XR of the chest. Views: 1 view. COMPARISON: 1. CT Chest without contrast 10/28/2020 11:21 AM 2. CR CHEST 2 VIEWS 08/11/2020 12:45:04 PM 3. CR PORTABLE CHEST X-RAY 07/14/2020 11:43:50 AM FINDINGS: Lungs: Unremarkable. No consolidation. No pulmonary edema. Pleural spaces: Unremarkable. No pleural effusion. No pneumothorax. Heart/Mediastinum: The cardiac silhouette is enlarged. There is a widened appearance of the mediastinum, which is stable compared to the prior chest x-rays on 08/11/2020 and 07/14/2020 and is secondary to mediastinal lipomatosis on review of the CT chest on 10/28/2020. Bones/joints: There are several old healed right rib fractures. IMPRESSION: 1. Cardiomegaly, which is stable compared to the prior chest x-rays on 08/11/2020 and 07/14/2020. 2. No radiographic evidence for an acute cardiopulmonary process. Electronically signed by: Earnest Dorsey On 03/01/2021 03:38:33 AM
--- NOTE | 2021-03-01 03:40 | REPVR ---
PROCEDURE INFORMATION: Exam: CT Abdomen And Pelvis With Contrast Exam date and time: 03/01/2021 2:48 AM Age: 76 years old Clinical indication: Distended abd, R/O dissection TECHNIQUE: Imaging protocol: Computed tomography of the abdomen and pelvis with contrast. Radiation optimization: All CT scans at this facility use at least one of these dose optimization techniques: automated exposure control; mA and/or kV adjustment per patient size (includes targeted exams where dose is matched to clinical indication); or iterative reconstruction. Contrast material: ISOVUE 370; Contrast volume: 100 ml; Contrast route: INTRAVENOUS (IV); COMPARISON: CT ABD PELVIS W/O CONTRAST 11/05/2020 7:46 AM FINDINGS: Lungs: For details regarding the lungs, refer to the CTA chest report on 03/01/2021. Heart: For details regarding the heart, refer to the CTA chest report on 03/01/2021. Liver: Unremarkable. No liver lesion is identified. The contour of the liver is smooth. No hepatomegaly is noted. Gallbladder and bile ducts: The gallbladder is contracted. No calcified gallstones are seen. No dilation of the bile ducts is noted. No calcified stones are seen in the common bile duct. Pancreas: The pancreas is atrophic and otherwise unremarkable. No dilation of the main pancreatic duct is noted. Spleen: Normal. No splenomegaly is noted. Incidental note is made of a small accessory spleen. Adrenal glands: Normal. No adrenal mass is noted. Kidneys and ureters: The kidneys are normal in appearance. No renal lesion is noted. No stones are noted in the kidneys or ureters. There is no hydronephrosis or hydroureter. Stomach and bowel: The stomach is decompressed, limiting its optimal evaluation. The small bowel is unremarkable. There is colonic diverticulosis without evidence for diverticulitis. There is no evidence for a bowel obstruction, colitis, pneumatosis intestinalis, intussusception, volvulus, or perforated viscus. Appendix: The appendix is not identified and may have been removed. No dilated blind ending tubular structure, inflammatory fat stranding, or fluid is noted in the expected location of the appendix. Intraperitoneal space: No free air. No ascites. No abscess. Retroperitoneal space: Unremarkable. Vasculature: Little to no contrast is present in the abdominal aorta, limiting its evaluation. No abdominal aortic aneurysm is present. There are extensive atherosclerotic calcifications. Lymph nodes: No enlarged lymph nodes. Urinary bladder: The distended urinary bladder is normal in appearance. No stones or masses are seen in the bladder. Reproductive: The prostate gland and seminal vesicles are absent. Bones/joints: There is no acute fracture or dislocation. There are several old healed right rib fractures. There are chronic mild depressions in the inferior endplate of L2, superior and inferior endplates of L3 and L4, and inferior endplate of L5, which are stable compared to the CT abdomen and pelvis on 11/05/2020. There are degenerative changes involving the lumbar spine. There is a grade 1 anterolisthesis of L4 on L5 secondary to severe osteoarthritis of the L4-L5 facet joints. There is moderate osteoarthritis of the left hip and mild osteoarthritis of the right hip. Degenerative changes of the pubic symphysis are present. Soft tissues: There is increased adipose tissue. Nonspecific edema is present in the subcutaneous tissues on both sides of the pelvis. IMPRESSION: 1. No acute findings in the abdomen or pelvis. However, little to no contrast is present in the abdominal aorta, limiting its evaluation. 2. Colonic diverticulosis without evidence for diverticulitis. Electronically signed by: Earnest Dorsey On 03/01/2021 03:39:49 AM
--- NOTE | 2021-03-01 04:14 | REPVR ---
PROCEDURE INFORMATION: Exam: CT Head Without Contrast Exam date and time: 03/01/2021 2:48 AM Age: 76 years old Clinical indication: Other: Falls, on coumadin TECHNIQUE: Imaging protocol: Computed tomography of the head without contrast. Radiation optimization: All CT scans at this facility use at least one of these dose optimization techniques: automated exposure control; mA and/or kV adjustment per patient size (includes targeted exams where dose is matched to clinical indication); or iterative reconstruction. COMPARISON: CT Head without contrast 08/23/2017 5:02 PM FINDINGS: Brain: There is moderate, diffuse parenchymal volume loss, similar to the prior exam. There is heterogeneity of the white matter attenuation, most consistent with mild chronic white matter ischemic changes. There is no evidence of intracranial hemorrhage. Cerebral ventricles: The ventricular system demonstrates stable moderate diffuse compensatory enlargement. Paranasal sinuses: There is minimal mucoperiosteal thickening in the visualized paranasal sinuses. No fluid levels. The maxillary sinuses are not fully included, but there appear to have been prior partial medial antrectomies, as well as ethmoid septae resections. Mastoid air cells: The mastoid air cells are clear. Bones/joints: No acute fractures of the skull are identified. Soft tissues: The soft tissues appear unremarkable. IMPRESSION: 1. No evidence of acute intracranial injury. 2. Stable moderate diffuse parenchymal volume loss. Electronically signed by: Violet Plascencia On 03/01/2021 04:13:49 AM
--- NOTE | 2021-03-01 13:41 | ECGEPIP ---
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
== END 2021-03-01 03:38 | disposition short-term general hospital (02) ==
LOC: M ED 02:08
DX: I21.09 ST elevation (STEMI) myocardial infarction involving other coronary artery of anterior wall (principal); R07.9 Chest pain, unspecified; R29.6 Repeated falls; E11.9 Type 2 diabetes mellitus without complications; I11.9 Hypertensive heart disease without heart failure; E78.5 Hyperlipidemia, unspecified; Z79.4 Long term (current) use of insulin
CPT/HCPCS: 70450; 71045; 71275; 74177; 80047; 80048; 84484; 85025; 85610; 85730; 87631; 93005; 93041; 94760; 96374; 96375; 99285; J1644; Q9967